=== PATIENT | female | born 2000 | race Caucasian/White ===

== ENCOUNTER 2020-05-12 07:09 | Inpatient (IN) ==
[2020-05-12] MEDS ORDERED: OXYTOCIN 30 UNITS/500 ML BAG IV PRN ×2 (07:55→23:12)
[2020-05-12 08:19] LABS: Hematocrit (blood only) 37.9 % (37-47); Hemoglobin 12.6 g/dL (12.0-16.0); Mean Corpuscular Hemoglobin 28.8 pg (25-34); Mean Corpuscular Volume 86.7 fL (80-100); Mean Platelet Volume 12.9 fL (7.4-10.4); Platelet Count 197 K/uL (130-400); RDW Coefficient of Variation 13.7 % (11.5-14.5); RDW Standard Deviation 43.2 fL (36.4-46.3); Red Blood Count 4.37 M/uL (4.2-5.4); White Blood Count 11.54 K/uL (4.8-10.8)
[2020-05-12 08:25] LABS: Mean Corpuscular Hgb Conc 33.2 g/dL (32-36)
[2020-05-12] MEDS: LACTATED RINGER'S 1,000 ML IV PRN ×3 (09:37→17:54)
[2020-05-12] MEDS ORDERED: BUTORPHANOL TARTRATE 1 MG/ML VIAL IV STA (09:42)
[2020-05-12] MEDS ORDERED: BUPIVACAINE 0.25% 30 ML VIAL ONE (09:45)
[2020-05-12] MEDS ORDERED: fentaNYL citrate 100 MCG/2 ML VIAL ONE (09:45)
[2020-05-12] MEDS ORDERED: ePHEDrine sulfate 50 MG/ML AMP ONE (09:45)
[2020-05-12] MEDS ORDERED: fentaNYL 2MCG/ML ROPIV 1.25MG/ML 100 ML BAG EPI ONE (09:46)
--- NOTE | 2020-05-12 09:57 | Obstetrical Progress Note ---
Date of Service May 12, 2020 Assessment & Plan Admission and Anticipated Discharge Date Admission Date: May 12, 2020 Subjective Met pt and spouse Reviewed PNC FHR: CAT1 Ctx; 2-3 VE; 4-/-/-1 Results & Data ([facility]) Vital Signs (Past 12 Hours) Vital Signs Pulse BP 05/12/20 07:14 87 101/61
[2020-05-12] MEDS ORDERED: NALOXONE HCL 1 MG in SODIUM CHLORIDE 0.9% 1000ML 1,000 ML IV PRN (10:09)
[2020-05-12] MEDS ORDERED: ePHEDrine sulfate 50 MG/ML AMP IV PRN (10:09)
[2020-05-12] MEDS ORDERED: ONDANSETRON INJ 2 MG/ML 2 ML VIAL IV PRN (10:09)
[2020-05-12] MEDS ORDERED: NALOXONE HCL 0.4 MG/1 ML VIAL/CARP IV PRN (10:09)
[2020-05-12] MEDS ORDERED: PROMETHAZINE HCL 25 MG in SODIUM CHLORIDE 0.9% 50 ML IV PRN (10:09)
[2020-05-12] MEDS ORDERED: DiphenhydrAMINE HCL 50 MG/ML VIAL IV PRN (10:09)
--- NOTE | 2020-05-12 10:09 | Anesthesiology Consultation ---
Date of Service May 12, 2020 Assessment & Plan ASA ASA2 Proposed Anesthesia Anesthesia Type: Labor Epidural Risk / Benefits Reviewed With: PT / POA / Parent / Guardian, Accepts Plan and Informed Consent Obtained History Height/Weight Height: 5 ft 3 in Weight: 60.781 kg Allergies Allergy/AdvReac Type Severity Reaction Status Date / Time No Known Allergies Allergy Mild Unverified 05/12/20 07:16 Medications Home Medications Medication Instructions Recorded Confirmed Last Taken pedi multivit 99-vit D3-vit K 2 tab PO DAILY 05/12/20 05/12/20 05/11/20 08:00 [One-A-Day Teen Her [facility]] Active Medications Generic Name Dose Route Start Last Admin Trade Name Freq PRN Reason Stop Dose Admin Lactated Ringer's 1,000 mls @ 125 mls/hr 05/12/20 07:55 05/12/20 10:43 Lr IV 05/14/20 07:54 125 mls/hr .Q8H PRN Administration L&D Protocol Protocol Ropivacaine 100 ml 05/12/20 10:09 05/12/20 10:35 Fentanyl 2mcg/Ml Ropiv 1.25mg/Ml 100 Ml Bag EPI 05/13/20 10:08 12 ml PRN PRN Administration Pain R/T Labor Protocol Exercise / Class Metabolic Activity II 4-5 Yardwork/Stairs/Walk up hill Past Anesthesia History No Hx of Anesthesia Complications and No Family Hx of Anesthesia Complications History of PONV No Hx of PONV and No Hx of Motion Sickness Social History Smoking Status: Current every day smoker tobacco type: cigarettes Do You Dip or Chew Tobacco: No Hx Alcohol Use: No Hx Substance Use: No Review of Systems denies fever/cough/ colds/ chest pain/ SOB/ TILA Constitutional: no fever and no chills Respiratory: no cough and no dyspnea denies TILA Cardiovascular: no chest pain and no dyspnea on exertion Physical Exam Vital Signs Last Vital Signs Temp 36.8 C 05/12/20 10:04 Pulse 63 05/12/20 11:01 Resp 18 05/12/20 10:40 BP 108/70 05/12/20 11:01 Pulse Ox 99 05/12/20 10:59 ENMT Mouth: no TMJ abnormality and no dentition abnormality Thyromental Distance: > or= 3.5 Finger Breadths Mallampati Class: II Neck neck extension not limited Respiratory normal respiratory effort; no respiratory distress Auscultation: lungs clear to auscultation bilaterally Cardiovascular Rate/Rhythm: regular rate and regular rhythm Neurologic moves all extremities Psychiatric Orientation: alert and oriented x 3 Testing Laboratory Results 05/12/20 08:08
[2020-05-12] MEDS: fentaNYL 2MCG/ML ROPIV 1.25MG/ML 100 ML BAG EPI PRN ×4 (10:35→23:39)
[2020-05-13] MEDS ORDERED: CALCIUM CARBONATE 500 MG CHEWABLE TAB PO ONE (01:08)
[2020-05-13] MEDS: LACTATED RINGER'S 1,000 ML IV PRN (02:06)
[2020-05-13] MEDS ORDERED: SUPERCREAM 0.870% 15 GM JAR EXT PRN (03:23)
[2020-05-13] MEDS ORDERED: OXYTOCIN 30 UNITS/500 ML BAG IV PRN (03:23)
[2020-05-13] MEDS ORDERED: miSOPROStoL 200 MCG TAB PR ONE (03:23)
[2020-05-13] MEDS ORDERED: BENZOCAINE 20% AER SPR 82.5 GM CAN EXT PRN (03:23)
[2020-05-13] MEDS ORDERED: ACETAMINOPHEN 325 MG TAB PO PRN (03:23)
[2020-05-13] MEDS ORDERED: HYDROCORTISONE ACETATE 25 MG SUPP PR PRN (03:23)
[2020-05-13] MEDS ORDERED: DIPHTHERIA/TETANUS/PERTUSSIS 0.5 ML SYR/VIAL IM ONE (03:23)
[2020-05-13] MEDS ORDERED: bisacodyL 10 MG SUPP PR PRN (03:23)
[2020-05-13] MEDS: IBUPROFEN 600 MG TAB PO PRN ×3 (05:27→19:58)
[2020-05-13 06:23] LABS: Base Excess Cord Arterial Bld -5.8 mEq/L (-9-1.8); CO2 Cord Arterial Blood 43 mmHg (39.1-73.5); HCO3 Cord Arterial Blood 21 mmol/L (19.7-28.5); Oxygen Sat Cord Arterial Blood < 60.0 % (<60); PO2 Cord Arterial Blood 27 mmHg (4.1-31.7)
[2020-05-13 06:24] LABS: Base Excess Cord Venous Blood -5.2 mEq/L (-7.7-1.9); Cord Venous Blood HCO3 20 mmol/L (18.4-26.8); Cord Venous Blood PCO2 40 mmHg (30.4-57.2); Cord Venous Blood PO2 29 mmHg (14.1-43.3); Cord Venous Blood pH 7.32 (7.20-7.44)
--- NOTE | 2020-05-13 08:22 | Obstetrical Progress Note ---
Date of Service May 13, 2020 Assessment & Plan Admission and Anticipated Discharge Date Admission Date: May 12, 2020 Subjective POD#0 doing well Physical Exam Constitutional: WD/WN, vitals as above comfortable fundus firm no edema neg Baldemar's will continue normal postparatum care Results & Data ([facility]) Vital Signs (Past 12 Hours) Vital Signs Temp Pulse Resp BP Pulse Ox 05/13/20 06:15 37.1 C 51 L 18 99/61 L 05/13/20 05:21 18 05/13/20 05:19 53 L 90/52 L 05/13/20 05:03 55 L 97/53 L 05/13/20 05:00 18 05/13/20 04:16 56 L 95/57 L 05/13/20 04:15 18 05/13/20 04:01 53 L 93/57 L 05/13/20 04:00 18 05/13/20 03:46 69 92/58 L 05/13/20 03:45 18 05/13/20 03:31 78 96/56 L 05/13/20 03:30 18 05/13/20 03:16 72 95/56 L 05/13/20 03:09 78 98 05/13/20 03:04 117 H 97 05/13/20 02:59 60 100 05/13/20 02:54 98 H 100 05/13/20 02:49 61 100 05/13/20 02:44 59 L 100 05/13/20 02:41 73 84 L 05/13/20 02:39 68 100 05/13/20 02:34 63 100 05/13/20 02:33 78 112/53 L 05/13/20 02:30 18 05/13/20 02:29 78 100 05/13/20 02:24 62 100 05/13/20 02:19 66 99 05/13/20 02:17 67 99/57 L 05/13/20 02:14 59 L 100 05/13/20 02:09 64 99 05/13/20 02:04 60 99 05/13/20 02:00 18 05/13/20 01:59 65 99 05/13/20 01:54 63 99 05/13/20 01:52 73 86 L 05/13/20 01:49 95 H 91 05/13/20 01:44 60 98 05/13/20 01:43 64 84 L 05/13/20 01:39 101 H 99 05/13/20 01:34 85 98 05/13/20 01:33 71 84 L 05/13/20 01:30 18 05/13/20 01:29 63 99 05/13/20 01:24 74 95 05/13/20 01:19 61 99 05/13/20 01:14 60 99 05/13/20 01:09 76 100 05/13/20 01:04 61 98 05/13/20 01:02 50 L 111/57 L 05/13/20 01:00 18 05/13/20 00:59 71 97 05/13/20 00:54 54 L 95 05/13/20 00:49 53 L 97 05/13/20 00:46 64 100/61 05/13/20 00:44 80 95 05/13/20 00:39 74 94 05/13/20 00:34 50 L 98 05/13/20 00:33 68 97/58 L 05/13/20 00:30 18 05/13/20 00:29 53 L 95 05/13/20 00:24 50 L 94 05/13/20 00:19 54 L 95 05/13/20 00:16 62 97/57 L 05/13/20 00:14 54 L 95 05/13/20 00:09 52 L 97 05/13/20 00:04 47 L 97 05/13/20 00:02 48 L 103/58 L 05/13/20 00:00 18 05/12/20 23:59 98 H 100 05/12/20 23:54 79 100 05/12/20 23:49 55 L 97 05/12/20 23:47 48 L 99/58 L 05/12/20 23:44 48 L 97 05/12/20 23:39 60 96 05/12/20 23:34 50 L 97 05/12/20 23:33 46 L 95/59 L 05/12/20 23:30 18 05/12/20 23:29 62 99 05/12/20 23:24 50 L 99 05/12/20 23:19 52 L 95 05/12/20 23:16 49 L 101/60 05/12/20 23:14 51 L 96 05/12/20 23:09 50 L 95 05/12/20 23:04 71 94 05/12/20 23:02 46 L 101/59 L 05/12/20 23:00 37.0 C 18 05/12/20 22:59 55 L 96 05/12/20 22:54 45 L 96 05/12/20 22:49 50 L 95 05/12/20 22:48 45 L 98/57 L 05/12/20 22:44 51 L 95 05/12/20 22:39 50 L 94 05/12/20 22:34 47 L 97 05/12/20 22:31 48 L 94/55 L 05/12/20 22:30 18 05/12/20 22:29 48 L 97 05/12/20 22:24 51 L 98 05/12/20 22:19 52 L 98 05/12/20 22:16 51 L 88/53 L 05/12/20 22:14 51 L 98 05/12/20 22:09 56 L 97 05/12/20 22:04 47 L 96 05/12/20 22:01 50 L 92/57 L 05/12/20 22:00 18 05/12/20 21:59 49 L 97 05/12/20 21:54 57 L 98 05/12/20 21:49 57 L 99 05/12/20 21:48 48 L 104/59 L 05/12/20 21:44 52 L 99 05/12/20 21:39 49 L 98 05/12/20 21:34 87 97 05/12/20 21:30 36.7 C 05/12/20 21:29 50 L 98 05/12/20 21:24 74 96 05/12/20 21:19 53 L 96 05/12/20 21:18 50 L 100/58 L 05/12/20 21:14 53 L 99 05/12/20 21:09 47 L 99 05/12/20 21:04 68 97 05/12/20 21:02 46 L 105/65 05/12/20 21:00 18 05/12/20 20:59 51 L 95 05/12/20 20:54 49 L 97 05/12/20 20:53 56 L 85 L 05/12/20 20:49 50 L 97 05/12/20 20:47 50 L 105/59 L 05/12/20 20:44 48 L 97 05/12/20 20:39 55 L 99 05/12/20 20:34 55 L 99 05/12/20 20:30 18 05/12/20 20:29 72 98 05/12/20 20:24 59 L 98
--- NOTE | 2020-05-13 08:29 | Delivery Summary ---
DATE OF OPERATION: 05/13/2020 The patient delivered a live infant in occiput anterior presentation. There was known meconium prior to delivery. A right midline second-degree episiotomy was performed. was delivered. There was no nuchal cord. Infant was delivered and placed on mother's abdomen. Cord was clamped and cut and immediately handed over to the pediatric team because of the thick meconium. Weight, , and details are in the pediatric record. Cord blood and cord gas were obtained. Placenta was spontaneously delivered. Inspection of the placenta showed a thick meconium stained placenta. This was sent to pathology for pathological analysis as well. Estimated blood loss is 550 mL. Episiotomy was repaired with Vicryl suture in layers. A 2-0 Vicryl was used for the repair. Rectal exam post repair showed good sphincter tone. All the instruments were removed from the vagina and accounted for x2 including retractors, needles, sponges and accounted for x2. The patient and baby are in recovery. I attest to the content of the Intraoperative Record and any orders documented therein. Any exception s are noted below.
[2020-05-13] MEDS: PRENATAL VITAMIN 1 TAB PO SCH (08:36)
[2020-05-13] MEDS: DOCUSATE SODIUM 100 MG CAP PO SCH ×2 (08:36→19:58)
--- NOTE | 2020-05-13 10:38 | Anesthesia Procedure Note ---
Date of Service May 13, 2020 Anesthesia Post Epidural Note Vital Signs Vital Signs: Temp Pulse Resp BP Pulse Ox 37.1 C 51 L 18 99/61 L 98 05/13/20 06:15 05/13/20 06:15 05/13/20 06:15 05/13/20 06:15 05/13/20 03:09 Pain Intensity Bilateral Abdomen: Pain Intensity: 5 Notes Mental Status: alert / awake / arousable Nausea / Vomiting: adequately controlled Pain: adequately controlled Airway Patency, RR, SpO2: stable & adequate BP & HR: stable & adequate Hydration State: stable & adequate Neuraxial Anesthesia: was administered and sensory block is resolving Anesthetic Complications: no major complications apparent and Pt Satisfied with anesthetic care Epidural: Removed without complications and With tip intact
[2020-05-14 06:34] LABS: Hemoglobin 10.3 g/dL (12.0-16.0); Mean Corpuscular Hemoglobin 28.9 pg (25-34); Mean Corpuscular Hgb Conc 33.2 g/dL (32-36); Mean Corpuscular Volume 87.1 fL (80-100); Mean Platelet Volume 13.3 fL (7.4-10.4); Platelet Count 168 K/uL (130-400); RDW Coefficient of Variation 13.7 % (11.5-14.5); RDW Standard Deviation 43.5 fL (36.4-46.3); Red Blood Count 3.56 M/uL (4.2-5.4); White Blood Count 11.15 K/uL (4.8-10.8)
[2020-05-14] MEDS: PRENATAL VITAMIN 1 TAB PO SCH (08:22)
[2020-05-14] MEDS: DOCUSATE SODIUM 100 MG CAP PO SCH (08:22)
[2020-05-14] MEDS: IBUPROFEN 600 MG TAB PO PRN (08:22)
--- NOTE | 2020-05-14 09:16 | Obstetrical Progress Note ---
Date of Service May 14, 2020 Assessment & Plan Admission and Anticipated Discharge Date Admission Date: May 12, 2020 Subjective Patient is seen and examined. She feels well, no complaints. Ambulating without dizziness Voiding without difficulty Tolerating regular diet with out N&V Bleeding is minimal No fever/ chills/ CP/ SOB/ N&V/ Leg pain Breast feeding without problems Desires d/c today Vital Signs Temp Pulse Resp BP Pulse Ox 05/14/20 08:41 36.6 C 48 L 16 98/60 L 98 05/14/20 00:00 36.6 C 48 L 16 106/64 98 05/13/20 19:05 36.7 C 53 L 18 99/61 L 98 05/13/20 15:19 36.8 C 50 L 20 98/61 L 97 05/13/20 12:30 36.5 C 52 L 18 106/70 98 Lab Results 05/12/20 05/13/20 05/13/20 Range/Units 08:08 03:07 03:07 WBC 11.54 H (4.8-10.8) K/uL RBC 4.37 (4.2-5.4) M/uL Hgb 12.6 (12.0-16.0) g/dL Hct 37.9 (37-47) % MCV 86.7 (80-100) fL MCH 28.8 (25-34) pg MCHC 33.2 (32-36) g/dL RDW Std Deviation 43.2 (36.4-46.3) fL RDW Coeff of Karen 13.7 (11.5-14.5) % Plt Count 197 (130-400) K/uL MPV 12.9 H (7.4-10.4) fL Cord ABG pH 7.30 (7.1-7.38) Cord ABG pCO2 43 (39.1-73.5) mmHg Cord ABG pO2 27 (4.1-31.7) mmHg Cord ABG HCO3 21 (19.7-28.5) mmol/L Cord ABG Base Excess -5.8 (-9-1.8) mEq/L Cord ABG O2 Sat < 60.0 (<60) % Cord VBG pH 7.32 (7.20-7.44) Cord VBG pCO2 40 (30.4-57.2) mmHg Cord VBG pO2 29 (14.1-43.3) mmHg Cord VBG HCO3 20 (18.4-26.8) mmol/L Cord VBG Base Excess -5.2 (-7.7-1.9) mEq/L Cord VBG O2 Sat 64.0 (<68) % Blood Gas Comments NAVARRO NAVARRO 05/14/20 Range/Units 06:06 WBC 11.15 H (4.8-10.8) K/uL RBC 3.56 L (4.2-5.4) M/uL Hgb 10.3 L (12.0-16.0) g/dL Hct 31.0 L (37-47) % MCV 87.1 (80-100) fL MCH 28.9 (25-34) pg MCHC 33.2 (32-36) g/dL RDW Std Deviation 43.5 (36.4-46.3) fL RDW Coeff of Karen 13.7 (11.5-14.5) % Plt Count 168 (130-400) K/uL MPV 13.3 H (7.4-10.4) fL Cord ABG pH (7.1-7.38) Cord ABG pCO2 (39.1-73.5) mmHg Cord ABG pO2 (4.1-31.7) mmHg Cord ABG HCO3 (19.7-28.5) mmol/L Cord ABG Base Excess (-9-1.8) mEq/L Cord ABG O2 Sat (<60) % Cord VBG pH (7.20-7.44) Cord VBG pCO2 (30.4-57.2) mmHg Cord VBG pO2 (14.1-43.3) mmHg Cord VBG HCO3 (18.4-26.8) mmol/L Cord VBG Base Excess (-7.7-1.9) mEq/L Cord VBG O2 Sat (<68) % Blood Gas Comments PE: General: Alert, orientedx3, NAD Abd: soft, NT, fundus firm, below Umbilicus Perineum intact, Lochia rubra minimal Ext; NT, no edema AP: 19 yo s/p , ppd# 1 VSS Afebrile doing well Continue routine care All questions were answered Desires d/c Discussed when to call D/C home , f/u in office Results & Data ([facility]) Vital Signs (Past 12 Hours) Vital Signs Temp Pulse Resp BP Pulse Ox 05/14/20 08:41 36.6 C 48 L 16 98/60 L 98 05/14/20 00:00 36.6 C 48 L 16 106/64 98
[2020-05-14] MEDS ORDERED: bisacodyL 5 MG TABEC PO SCH (20:00)
== END 2020-05-14 15:10 | disposition home or self-care (01) | DRG 807 ==
LOC: 4S1 07:09 → 4S2 05-13 05:59
DX: Z37.0 Single live birth; F17.210 Nicotine dependence, cigarettes, uncomplicated; Z3A.40 40 weeks gestation of pregnancy; O77.0 Labor and delivery complicated by meconium in amniotic fluid; O99.334 Smoking (tobacco) complicating childbirth

== ENCOUNTER 2021-10-11 20:46 | Inpatient (IN) ==
[2021-10-11] MEDS ORDERED: OXYTOCIN 30 UNITS/500 ML BAG IV PRN (21:49)
--- NOTE | 2021-10-11 22:06 | History & Physical Report ---
Date of Service October 11, 2021 Assessment & Plan (1) Spontaneous rupture of amniotic membranes: Plan: 21 yo at 39.3 wks with SROM, contractions, in labor VSS Afebrile FHR reassuring GBS neg Admit, labs, monitor, epidural for pain Anticipate (2) Active labor at term: History of Present Illness Primary Care Provider: NO PCP Patient is a 21 yo AT 39.3 WKS WHO HAD GUSH OF FLUID LEAKING AT AROUND 7:30 PM AND HAS BEEN leaking since then Contractions have started soon after No VB +FM Her has been uncomplicated except 1) smoker 2) close interval 3) anemia GBS negative Allergies Allergy/AdvReac Type Severity Reaction Status Date / Time No Known Allergies Allergy Mild Unverified 05/12/20 07:16 Home Medications Medication Instructions Recorded Confirmed Type vits no.124-ferrous fum 1 tab PO DAILY@08 #60 tab 05/14/20 10/11/21 Rx 27 mg iron-folic acid 800 mcg tablet ( Vitamin) ferrous sulfate 325 mg (65 mg 325 mg PO BID 10/11/21 10/11/21 History iron) tablet Patient History Medical History Anemia Social History Smoking Status: Current every day smoker Second Hand Exposure: Yes; Hx Alcohol Use: No Hx Substance Use: No Preferred Language: [place]an Communication Ability: Effective Doctor Of Osteopathy Required: No Beliefs That Will Affect Care: None marital status: Single Current Living Situation: Family and Significant Other Other Information That Helps Us Care for You: No Feels Safe at Home: Yes Safety Concerns: Feels Safe At This Time Assistive Devices: None 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
[2021-10-11] MEDS: LACTATED RINGER'S 1,000 ML IV PRN ×2 (22:11→23:14)
[2021-10-11] MEDS ORDERED: BUTORPHANOL TARTRATE 1 MG/ML VIAL IV ONE (22:26)
[2021-10-11] MEDS ORDERED: BUTORPHANOL TARTRATE 1 MG/ML VIAL ONE (22:28)
[2021-10-11] MEDS ORDERED: SODIUM CHLORIDE 0.9% INJ 10 ML VIAL ONE (22:34)
[2021-10-11] MEDS ORDERED: ePHEDrine sulfate 50 MG/ML AMP ONE (22:34)
[2021-10-11] MEDS ORDERED: BUPIVACAINE 0.25% 30 ML VIAL ONE (22:35)
[2021-10-11] MEDS ORDERED: fentaNYL 2MCG/ML ROPIVACAINE 1.25MG/ML 100 ML BAG EPI ONE (22:35)
[2021-10-11] MEDS ORDERED: fentaNYL citrate 100 MCG/2 ML VIAL ONE (22:35)
[2021-10-11] MEDS ORDERED: NALBUPHINE HCL INJ 10 MG/ML AMP IV PRN (22:37)
[2021-10-11] MEDS ORDERED: fentaNYL 2MCG/ML ROPIVACAINE 1.25MG/ML 100 ML BAG EPI PRN (22:37)
[2021-10-11] MEDS ORDERED: diphenhydrAMINE 50 MG/ML VIAL IV PRN (22:37)
[2021-10-11] MEDS ORDERED: ePHEDrine sulfate 50 MG/ML AMP IV PRN (22:37)
[2021-10-11] MEDS ORDERED: NALOXONE HCL 0.4 MG/1 ML VIAL/CARP IV PRN (22:37)
[2021-10-11] MEDS ORDERED: NALOXONE HCL 1 MG in SODIUM CHLORIDE 0.9% 1000ML 1,000 ML IV PRN (22:37)
--- NOTE | 2021-10-11 22:37 | Anesthesiology Consultation ---
Date of Service October 11, 2021 Assessment & Plan (1) Encounter for pre-operative examination: Chart Review Chart Review: Acceptable Risk for Surgery and Patient NOT seen in Pre Admission Testing Consults Requested none History Height/Weight Height: 5 ft 3 in Weight: 67.8 kg Allergies Allergy/AdvReac Type Severity Reaction Status Date / Time No Known Allergies Allergy Mild Unverified 05/12/20 07:16 Medications Home Medications Medication Instructions Recorded Confirmed Last Taken vits no.124-ferrous fum 1 tab PO DAILY@08 #60 tab 05/14/20 10/11/21 1 Day Ago 27 mg iron-folic acid 800 mcg ~10/10/21 tablet ( Vitamin) ferrous sulfate 325 mg (65 mg 325 mg PO BID 10/11/21 10/11/21 10/11/21 09:00 iron) tablet Active Medications Generic Name Dose Route Start Last Admin Trade Name Freq PRN Reason Stop Dose Admin Lactated Ringer's 1,000 mls @ 125 mls/hr 10/11/21 21:49 10/11/21 22:11 Lr IV 10/13/21 21:48 999 mls/hr .Q8H PRN Administration L&D Protocol Protocol Past Medical History Medical History Anemia Social History Smoking Status: Current every day smoker tobacco type: cigarettes Hx Alcohol Use: No Hx Substance Use: No Physical Exam Vital Signs Last Vital Signs Temp 98.2 F 10/11/21 21:07 Pulse 92 H 10/11/21 21:00 Resp 18 10/11/21 21:07 BP 112/68 10/11/21 21:00
[2021-10-11 22:41] LABS: Hematocrit (blood only) 37.9 % (37-47); Hemoglobin 12.7 g/dL (12.0-16.0); Mean Corpuscular Hemoglobin 30.2 pg (25-34); Mean Corpuscular Hgb Conc 33.5 g/dL (32-36); Mean Platelet Volume 12.6 fL (7.4-10.4); Platelet Count 181 K/uL (130-400); RDW Coefficient of Variation 15.9 % (11.5-14.5); RDW Standard Deviation 52.1 fL (36.4-46.3); Red Blood Count 4.21 M/uL (4.2-5.4); White Blood Count 14.16 K/uL (4.8-10.8)
--- NOTE | 2021-10-12 00:17 | Obstetrical Progress Note ---
Date of Service October 12, 2021 Assessment & Plan Admission and Anticipated Discharge Date Admission Date: October 11, 2021 Subjective Patient is related. She received epidural and comfortable now. Vaginal exam: Cervix 10 cm/100 percent and head at +1 station. Patient does not feel any urge to push and she wants to wait until she feels. heart rate category 1, continue to monitor closely and anticipate . Results & Data ([facility]) Vital Signs (Past 12 Hours) Vital Signs Temp Pulse Resp BP Pulse Ox Pulse Ox 10/12/21 00:14 89 103/57 L 10/12/21 00:13 87 99 10/12/21 00:11 65 97/55 L 10/12/21 00:08 73 103/56 L 97 10/12/21 00:06 67 86/50 L 10/12/21 00:05 89 87/58 L 10/12/21 00:03 62 97 10/12/21 00:02 69 97/54 L 10/11/21 23:59 64 108/56 L 10/11/21 23:58 66 95 10/11/21 23:56 64 104/59 L 10/11/21 23:53 64 105/58 L 99 10/11/21 23:52 75 91 10/11/21 23:50 72 94/66 L 10/11/21 23:48 68 98 10/11/21 23:47 77 112/59 L 93 10/11/21 23:45 18 10/11/21 23:44 70 112/56 L 10/11/21 23:43 73 100 10/11/21 23:41 80 111/59 L 10/11/21 23:38 62 111/56 L 100 10/11/21 23:35 62 113/58 L 10/11/21 23:33 76 100 10/11/21 23:32 95 H 120/59 L 10/11/21 23:28 81 100 10/11/21 23:26 71 116/70 10/11/21 23:23 57 L 110/68 98 10/11/21 23:20 36.5 C 81 18 123/73 10/11/21 23:19 93 H 90 10/11/21 23:18 93 H 94 10/11/21 23:17 97 H 115/64 10/11/21 23:15 18 10/11/21 23:14 100 H 118/59 L 10/11/21 23:13 89 96 10/11/21 23:11 83 111/60 10/11/21 23:08 75 118/66 98 10/11/21 23:05 79 121/67 10/11/21 23:03 98 H 99 10/11/21 23:02 80 122/70 10/11/21 22:59 93 H 119/68 10/11/21 22:58 95 H 99 10/11/21 22:53 89 99 10/11/21 22:50 100 10/11/21 22:48 83 99 10/11/21 22:44 94 H 84 L 10/11/21 22:43 96 H 98 10/11/21 22:38 86 100 10/11/21 21:07 36.8 C 18 10/11/21 21:00 92 H 112/68
[2021-10-12] MEDS ORDERED: MEASLES, MUMPS & RUBELLA VIRUS VIAL SQ ONE (01:20)
[2021-10-12] MEDS ORDERED: ACETAMINOPHEN 325 MG TAB PO PRN (01:20)
[2021-10-12] MEDS ORDERED: HYDROCORTISONE ACETATE 25 MG SUPP PR PRN (01:20)
[2021-10-12] MEDS ORDERED: OXYTOCIN 30 UNITS/500 ML BAG IV PRN (01:20)
[2021-10-12] MEDS ORDERED: DIPHTHERIA/TETANUS/PERTUSSIS 0.5 ML SYR/VIAL IM ONE (01:20)
[2021-10-12] MEDS ORDERED: BENZOCAINE 20% AER SPR 82.5 GM CAN EXT PRN (01:20)
--- NOTE | 2021-10-12 01:31 | Delivery Summary ---
Vaginal Delivery Summary Date of Service October 12, 2021 Vaginal Delivery Summary The patient was found to be fully dilated and desire to push. She pushed for about 10 minutes and delivered the head without difficulty. The shoulders were delivered with minimal traction, baby was handed off to the mother where mouth and nose were suctioned. The cord was clamped times and cut at 1 minute delay. The baby was moving and crying vigorously. The vagina and perineum were checked for lacerations. They were intact, no lacerations were found. The placenta was found to be in the vagina, delivered spontaneously as intact and complete. The uterus was explored and found to be empty, fundus was firm EBL was 200 mL. The mom and baby tolerated procedure well. Sponge instrument count was correct x2. Baby was a viable male , Apgars were 8/9, weight is pending. No complications happened and I was present during whole procedure.
[2021-10-12] MEDS: PRENATAL VITAMIN 1 TAB PO SCH (08:30)
[2021-10-12] MEDS: FERROUS SULFATE 325 MG TAB PO SCH (08:30)
[2021-10-12] MEDS: DOCUSATE SODIUM 100 MG CAP PO SCH ×2 (08:30→21:06)
--- NOTE | 2021-10-12 09:36 | Anesthesia Procedure Note ---
Date of Service October 12, 2021 Anesthesia Post Epidural Note Vital Signs Vital Signs: Temp Pulse Resp BP Pulse Ox 36.6 C 52 L 14 105/68 99 10/12/21 07:24 10/12/21 07:24 10/12/21 07:24 10/12/21 07:24 10/12/21 07:24 Pain Intensity Back: Pain Intensity: 10 Notes Mental Status: alert / awake / arousable and participated in evaluation Patient Amnestic to Procedure: Yes Nausea / Vomiting: adequately controlled Pain: adequately controlled Airway Patency, RR, SpO2: stable & adequate BP & HR: stable & adequate Hydration State: stable & adequate Anesthetic Complications: no major complications apparent and Pt Satisfied with anesthetic care
[2021-10-12] MEDS: IBUPROFEN 600 MG TAB PO PRN ×2 (11:28→21:06)
[2021-10-13 07:26] LABS: Hematocrit (blood only) 35.7 % (37-47); Hemoglobin 11.7 g/dL (12.0-16.0); Mean Corpuscular Hemoglobin 29.9 pg (25-34); Mean Corpuscular Hgb Conc 32.8 g/dL (32-36); Mean Corpuscular Volume 91.3 fL (80-100); Mean Platelet Volume 12.3 fL (7.4-10.4); Platelet Count 183 K/uL (130-400); RDW Coefficient of Variation 16.2 % (11.5-14.5); RDW Standard Deviation 53.6 fL (36.4-46.3); Red Blood Count 3.91 M/uL (4.2-5.4); White Blood Count 10.34 K/uL (4.8-10.8)
[2021-10-13] MEDS: DOCUSATE SODIUM 100 MG CAP PO SCH (08:32)
[2021-10-13] MEDS: FERROUS SULFATE 325 MG TAB PO SCH (08:33)
[2021-10-13] MEDS: PRENATAL VITAMIN 1 TAB PO SCH (08:33)
--- NOTE | 2021-10-13 08:55 | Obstetrical Progress Note ---
Date of Service October 13, 2021 Assessment & Plan Admission and Anticipated Discharge Date Admission Date: October 11, 2021 Subjective Patient is seen and examined. She feels well, no complaints. Wants to be discharged today Ambulating without dizziness Voiding without difficulty Tolerating regular diet with out N&V Bleeding is minimal No fever/ chills/ CP/ SOB/ N&V/ Leg pain Bottle feeding without problems Vital Signs Temp Pulse Resp BP Pulse Ox 10/12/21 23:35 36.9 C 51 L 20 99/57 L 95 Lab Results 10/11/21 10/11/21 10/13/21 Range/Units 21:43 22:26 06:27 WBC 14.16 H 10.34 (4.8-10.8) K/uL RBC 4.21 3.91 L (4.2-5.4) M/uL Hgb 12.7 11.7 L (12.0-16.0) g/dL Hct 37.9 35.7 L (37-47) % MCV 90.0 91.3 (80-100) fL MCH 30.2 29.9 (25-34) pg MCHC 33.5 32.8 (32-36) g/dL RDW Std Deviation 52.1 H 53.6 H (36.4-46.3) fL RDW Coeff of Karen 15.9 H 16.2 H (11.5-14.5) % Plt Count 181 183 (130-400) K/uL MPV 12.6 H 12.3 H (7.4-10.4) fL SARS-CoV-2, RNA, NAAT NEGATIVE (NEGATIVE) PE: General: Alert, orientedx3, NAD Abd: soft, NT, fundus firm, below Umbilicus Perineum intact, Lochia rubra minimal Ext; NT, no edema AP: 21 yo s/p , ppd# 1 VSS Afebrile doing well Continue routine care All questions were answered D/C home , f/u in office Results & Data ([facility]) Vital Signs (Past 12 Hours) Vital Signs Temp Pulse Resp BP Pulse Ox 10/12/21 23:35 36.9 C 51 L 20 99/57 L 95
[2021-10-13] MEDS ORDERED: bisacodyL 5 MG TABEC PO SCH (20:00)
[2021-10-14] MEDS ORDERED: bisacodyL 10 MG SUPP PR PRN
== END 2021-10-13 12:00 | disposition home or self-care (01) | DRG 807 ==
LOC: OPB 20:46 → 4S1 20:50 → 4S2 10-12 03:59

== ENCOUNTER 2023-03-26 00:43 | Observation (INO) ==
[2023-03-26] MEDS ORDERED: ONDANSETRON INJ 2 MG/ML 2 ML VIAL IV STA (01:03)
[2023-03-26] MEDS ORDERED: ACETAMINOPHEN 1,000 MG/100 ML VIAL IV STA (01:03)
[2023-03-26] MEDS ORDERED: SODIUM CHLORIDE 0.9% 1000ML 1,000 ML IV SCH (01:15)
[2023-03-26 01:24] LABS: Alanine Aminotransferase 10 U/L (7-52); Albumin Globulin Ratio 1.2 (0.9-2); Albumin Level 3.3 gm/dl (3.4-5.0); Alkaline Phosphatase 49 U/L (34-104); Anion Gap 9 (3-11); Aspartate Aminotransferase 16 U/L (13-39); BUN Creatinine Ratio 16.9 (10-20); Bilirubin,Total 0.9 mg/dl (0.2-1.0); Blood Urea Nitrogen 10 mg/dl (6-23); Calcium 8.1 mg/dl (8.6-10.3); Carbon Dioxide 17 mmol/L (21-32); Chloride 110 mmol/L (98-107); Creatinine Clr Calc Pharmacy 122.7 ml/min; Est GFR (African American) 149.7 ml/min; Est GFR (Non-African American) 129.2 ml/min; Globulin 2.7 gm/dl (2.5-4.0); Glucose 91 mg/dl (70-99(Fasting)); Lipase 44 U/L (11-82); Magnesium 1.5 mg/dl (1.7-2.4); Potassium 3.2 mmol/L (3.5-5.1); Sodium 136 mmol/L (136-145)
[2023-03-26 01:39] LABS: Basophils # (auto) 0.02 K/uL (0-0.2); Basophils % (auto) 0.2 %; Eosinophils # (auto) 0.02 K/uL (0-0.50); Eosinophils % (auto) 0.2 %; Hematocrit (blood only) 29.5 % (37.0-47.0); Hemoglobin 10.4 g/dl (12.0-16.0); Immature Granulocytes # (auto) 0.05 K/uL (0.01-0.20); Immature Granulocytes % (auto) 0.6 %; Lymphocytes # (auto) 0.77 K/uL (1.2-3.4); Lymphocytes % (auto) 9.5 %; Mean Corpuscular Hemoglobin 29.9 pg (25.0-34.0); Mean Corpuscular Hgb Conc 35.3 g/dL (32.0-36.0); Mean Corpuscular Volume 84.8 fL (80.0-100.0); Mean Platelet Volume 11.7 fL (9.4-12.4); Monocytes # (auto) 0.35 K/uL (0.11-0.59); Monocytes % (auto) 4.3 %; Neutrophils # (auto) 6.89 K/uL (1.40-6.50); Neutrophils % (auto) 85.2 %; Platelet Count 173 K/uL (130-400); RDW Coefficient of Variation 14.6 % (11.5-14.5); RDW Standard Deviation 44.8 fL (36.4-46.3); Red Blood Count 3.48 M/uL (4.20-5.40)
[2023-03-26 02:36] LABS: Appearance Urine Turbid (Clear); Bacteria Urine Automated 4+ (Negative); Bilirubin Urine Negative (Negative); Blood Urine 1+ (Negative); Color Urine Dark Yellow; Epithelial Cell Urine Auto >30 /lpf (0-5); Glucose Urine UA Negative (Negative); Ketones Urine 1+ (Negative); Leukocyte Esterase Urine 2+ (Negative); Nitrite Urine Positive (Negative); Protein Urine 2+ (Negative); RBC Urine Automated 0-4 /hpf (0-4); Urobilinogen Urine Positive (Negative); WBC Urine Automated >30 /hpf (0-5)
[2023-03-26 03:17] LABS: Troponin I High Sensitivity < 2.3 pg/ml (0-14)
[2023-03-26] MEDS ORDERED: cefTRIAXone SODIUM 1,000 MG in DEXTROSE 5% AD-VAN 50 ML IV STA (03:43)
[2023-03-26] MEDS ORDERED: SODIUM CHLORIDE 0.9% 1000ML 500 ML IV ONE (04:04)
--- NOTE | 2023-03-26 06:45 | Ultrasound Report ---
Exam(s): US ABDOMEN LIMITED EXAM: US Abdomen Limited, Right Upper Quadrant CLINICAL HISTORY: Reason for exam: Right side pain. Currently 20wk.. TECHNIQUE: Real-time ultrasound of the right upper quadrant with image documentation. COMPARISON: No relevant prior studies available. FINDINGS: Liver: Unremarkable. No mass. No intrahepatic bile duct dilation. Gallbladder: Unremarkable. No gallstones. Common bile duct: CBD caliber measures 3.4 mm in diameter. No stones. No dilation. Pancreas: Unremarkable as visualized. Right kidney: There is a right-sided hydroureteronephrosis. No stones. Bilateral ureteric jets are visualized. IMPRESSION: No evidence of cholecystitis or cholelithiasis Right-sided hydroureteronephrosis which could be due to the gravid uterus or ureteric stone. Electronically signed by: Brian Baxter MD 03/26/23 06:44 AM
--- NOTE | 2023-03-26 06:45 | Ultrasound Report ---
Exam(s): US OB LIMITED EXAM: US , Limited CLINICAL HISTORY: Reason for exam: right side pain, 20 wk preg. TECHNIQUE: Real-time limited ultrasound of the maternal uterus with image documentation. COMPARISON: No relevant prior studies available. FINDINGS: Fetus: Single live intrauterine with heart rate is 148 bpm. Gestational age: Estimated gestational age is 19 weeks and 4 days. EFW: Estimated weight is 305 g. Position: Breech presentation. Biometrics: 6 mm right choroid plexus cyst is seen. Placenta: Placenta is located on the right lateral aspect. Cervix: Cervical canal length is 4.2 cm. Vasculature: Prominent veins seen throughout the myometrium. IMPRESSION: Single live intrauterine corresponding to gestational age of 19 weeks and 4 days. Electronically signed by: Brian Baxter MD 03/26/23 06:44 AM
[2023-03-26] MEDS ORDERED: POTASSIUM CHLORIDE CRTAB 20 MEQ TABCR PO STA (08:39)
[2023-03-26] MEDS: MAGNESIUM SULFATE / D5W 1 GM/100 ML BAG IV SCH ×2 (08:49→10:47)
--- NOTE | 2023-03-26 09:02 | Student Report ---
[facility] Student H&P Date of Service Date of Service: March 26, 2023 HPI HPI: Pt is a 22 yo female with pmhx migraines with aura, anxiety, current daily smoker, currently 20wks gestation who present with approximate 4 day history of right lateral abdominal and flank pain, fever, chills, and rigors. Per patient her pain started on Saturday along with the fever and other symptoms, she also reported several episodes of vomiting over the weekend. This morning the pain was getting worse, so she came to the ED for evaluation. Pt points to right side and around back when asked where her pain is. She states that it waxes and wanes, and has not taken anything to relieve it. She denies any abdominal cramping, labor type pain/discomfort. Pt History Pt History: Medical History (Updated 11/13/21 @ 00:08 by Background Daemon) Active labor at term Anemia Encounter for pre-operative examination Spontaneous rupture of amniotic membranes Social History Smoking Status: Current every day smoker, 5 cigarettes per day Tobacco Type: Cigarettes Second Hand Exposure: Yes; Do You Dip or Chew Tobacco: No; Hx Alcohol Use: No Hx Substance Use: No Preferred Language: Gabonese Communication Ability: Effective Supervisor Stone Required: No Beliefs That Will Affect Care: None marital status: Single Current Living Situation: Family and Significant Other Feels Safe at Home: Yes Assistive Devices: None ROS ROS: See above for pertinent positives & negatives. A total of 10 systems reviewed and were otherwise negative. Physical Exam Physical Exam: Vital signs reviewed. General: Well-appearing [], in no significant distress. HEENT: No scleral icterus, PERRLA, neck supple. Atraumatic. Cardiovascular: Regular rate and rhythm, no extra sounds. Pulmonary: Clear to auscultation bilaterally, normal work of breathing. Abdomen: Soft, nontender, nondistended, positive bowel sounds. Musculoskeletal: Atraumatic, no peripheral edema. Neurologic: Patient awake alert and oriented x 3, full strength in all 4 extremities. Cranial nerves 2 through 12 grossly intact. Skin: Warm, dry, no rash Results Results: Vital Signs Temp 36.6 C 03/26/23 08:16 Pulse 70 03/26/23 08:00 Resp 17 03/26/23 08:00 BP 91/50 L 03/26/23 08:00 Pulse Ox 97 03/26/23 08:00 O2 Del Method Room Air 03/26/23 08:00 Intake & Output 03/25/23 03/26/23 03/26/23 18:59 06:59 18:59 Intake Total 2149 Balance 2149 Weight 59.3 kg Intake: IV 2149 Acetaminophen 1,000 mg In 100 100 / 100 ml @ 400 mls/hr IV NOW STA Rx#: [id number] Sodium Chloride 0.9% 1000ML 500 1500 / 1500 ml @ 999 mls/hr IV .Q31M ONE Rx#:[id number] cefTRIAXone SODIUM 1,000 mg In 50 / 50 Dextrose 5% Ad-Van 50 ml @ 100 mls/hr IV NOW STA Rx#:[id number] Left Antecubital 500 / 500 Other: Weight Measurement Method Built in [facility] Laboratory Results WBC 8.10 K/ul (4.8-10.8) 03/26/23 00:59 RBC 3.48 M/uL (4.20-5.40) L 03/26/23 00:59 Hgb 10.4 g/dl (12.0-16.0) L 03/26/23 00:59 Hct 29.5 % (37.0-47.0) L 03/26/23 00:59 MCV 84.8 fL (80.0-100.0) 03/26/23 00:59 MCH 29.9 pg (25.0-34.0) 03/26/23 00:59 MCHC 35.3 g/dL (32.0-36.0) 03/26/23 00:59 RDW Std Deviation 44.8 fL (36.4-46.3) 03/26/23 00:59 RDW Coeff of Karen 14.6 % (11.5-14.5) H 03/26/23 00:59 Plt Count 173 K/uL (130-400) 03/26/23 00:59 MPV 11.7 fL (9.4-12.4) 03/26/23 00:59 Immature Gran % (Auto) 0.6 % 03/26/23 00:59 Neut % (Auto) 85.2 % 03/26/23 00:59 Lymph % (Auto) 9.5 % 03/26/23 00:59 Greer % (Auto) 4.3 % 03/26/23 00:59 Eos % (Auto) 0.2 % 03/26/23 00:59 Baso % (Auto) 0.2 % 03/26/23 00:59 Neut # (Auto) 6.89 K/uL (1.40-6.50) H 03/26/23 00:59 Lymph # (Auto) 0.77 K/uL (1.2-3.4) L 03/26/23 00:59 Greer # (Auto) 0.35 K/uL (0.11-0.59) 03/26/23 00:59 Eos # (Auto) 0.02 K/uL (0-0.50) 03/26/23 00:59 Baso # (Auto) 0.02 K/uL (0-0.2) 03/26/23 00:59 Immature Gran # (Auto) 0.05 K/uL (0.01-0.20) 03/26/23 00:59 Sodium 136 mmol/L (136-145) 03/26/23 00:59 Potassium 3.2 mmol/L (3.5-5.1) L 03/26/23 00:59 Chloride 110 mmol/L (98-107) H 03/26/23 00:59 Carbon Dioxide 17 mmol/L (21-32) L 03/26/23 00:59 Anion Gap 9 (3-11) 03/26/23 00:59 BUN 10 mg/dl (6-23) 03/26/23 00:59 Creatinine 0.59 mg/dl (0.6-1.2) L 03/26/23 00:59 Est Cr Clr Drug Dosing 122.7 ml/min 03/26/23 00:59 Est GFR ( Amer) 149.7 ml/min 03/26/23 00:59 Est GFR (Non-Af Amer) 129.2 ml/min 03/26/23 00:59 BUN/Creatinine Ratio 16.9 (10-20) 03/26/23 00:59 Glucose 91 mg/dl (70-99(Fasting)) 03/26/23 00:59 Lactate 0.6 mmol/L (0.4-2.0) 03/26/23 04:17 Calcium 8.1 mg/dl (8.6-10.3) L 03/26/23 00:59 Magnesium 1.5 mg/dl (1.7-2.4) L 03/26/23 00:59 Total Bilirubin 0.9 mg/dl (0.2-1.0) 03/26/23 00:59 AST 16 U/L (13-39) 03/26/23 00:59 ALT 10 U/L (7-52) 03/26/23 00:59 Alkaline Phosphatase 49 U/L (34-104) 03/26/23 00:59 Troponin I High Sens < 2.3 pg/ml (0-14) 03/26/23 00:59 Total Protein 6.0 gm/dl (6.0-8.3) 03/26/23 00:59 Albumin 3.3 gm/dl (3.4-5.0) L 03/26/23 00:59 Globulin 2.7 gm/dl (2.5-4.0) 03/26/23 00:59 Albumin/Globulin Ratio 1.2 (0.9-2) 03/26/23 00:59 Lipase 44 U/L (11-82) 03/26/23 00:59 HCG, Quant 98174 mIU/ml 03/26/23 00:59 Urine Color Dark Yellow 03/26/23 00:50 Urine Appearance Turbid (Clear) A 03/26/23 00:50 Urine pH 6.0 (4.5-7.5) 03/26/23 00:50 Ur Specific Boron 1.020 (1.000-1.030) 03/26/23 00:50 Urine Protein 2+ (Negative) H 03/26/23 00:50 Urine Glucose (UA) Negative (Negative) 03/26/23 00:50 Urine Ketones 1+ (Negative) H 03/26/23 00:50 Urine Blood 1+ (Negative) H 03/26/23 00:50 Urine Nitrite Positive (Negative) A 03/26/23 00:50 Urine Bilirubin Negative (Negative) 03/26/23 00:50 Urine Urobilinogen Positive (Negative) H 03/26/23 00:50 Ur Leukocyte Esterase 2+ (Negative) H 03/26/23 00:50 Urine WBC (Auto) >30 /hpf (0-5) H 03/26/23 00:50 Urine RBC (Auto) 0-4 /hpf (0-4) 03/26/23 00:50 U Hyaline Cast (Auto) 1-5 /lpf (0-5) 03/26/23 00:50 U Epithel Cells (Auto) >30 /lpf (0-5) H 03/26/23 00:50 Urine Bacteria (Auto) 4+ (Negative) H 03/26/23 00:50 SARS-CoV-2, RNA, NAAT NEGATIVE (NEGATIVE) 03/26/23 08:35 Impressions Abdomen Ultrasound 03/26/23 01:01 Exam(s): US ABDOMEN LIMITED EXAM: US Abdomen Limited, Right Upper Quadrant CLINICAL HISTORY: Reason for exam: Right side pain. Currently 20wk.. TECHNIQUE: Real-time ultrasound of the right upper quadrant with image documentation. COMPARISON: No relevant prior studies available. FINDINGS: Liver: Unremarkable. No mass. No intrahepatic bile duct dilation. Gallbladder: Unremarkable. No gallstones. Common bile duct: CBD caliber measures 3.4 mm in diameter. No stones. No dilation. Pancreas: Unremarkable as visualized. Right kidney: There is a right-sided hydroureteronephrosis. No stones. Bilateral ureteric jets are visualized. IMPRESSION: No evidence of cholecystitis or cholelithiasis Right-sided hydroureteronephrosis which could be due to the gravid uterus or ureteric stone. Electronically signed by: Brian Baxter MD 03/26/23 06:44 AM Obstetrics Ultrasound 03/26/23 01:01 Exam(s): US OB LIMITED EXAM: US , Limited CLINICAL HISTORY: Reason for exam: right side pain, 20 wk preg. TECHNIQUE: Real-time limited ultrasound of the maternal uterus with image documentation. COMPARISON: No relevant prior studies available. FINDINGS: Fetus: Single live intrauterine with heart rate is 148 bpm. Gestational age: Estimated gestational age is 19 weeks and 4 days. EFW: Estimated weight is 305 g. Position: Breech presentation. Biometrics: 6 mm right choroid plexus cyst is seen. Placenta: Placenta is located on the right lateral aspect. Cervix: Cervical canal length is 4.2 cm. Vasculature: Prominent veins seen throughout the myometrium. IMPRESSION: Single live intrauterine corresponding to gestational age of 19 weeks and 4 days. Electronically signed by: Brian Baxter MD 03/26/23 06:44 AM
--- NOTE | 2023-03-26 10:49 | History & Physical Report ---
Date of Service March 26, 2023 Assessment & Plan (1) UTI (urinary tract infection): (2) Hydronephrosis: (3) : Plan: Admit to med/surg w/ tele Patient presenting from home with reports of right flank pain, N/V, chills/rigors. Currently 20 weeks . In the ED, afebrile, borderline hypotensive (however BPs seem to run chronically low), normal lactic acid. UA suggestive of UTI. US shows Right-sided hydroureteronephrosis which could be due to the gravid uterus or ureteric stone. Discussed with urology and SOFTWARE TEST MANAGER. Given current lack of fever, leukocytosis, elevated lactate, will observe on IV antibiotics. If not improving, consider CT ABD/pelvis. If patient requires urologic intervention, will need to be transferred to tertiary care center. Received IV ceftriaxone in the ED, continue with Follow urine and blood cultures DVT PROPHYLAXIS SCDs, ambulation encouraged Patient seen in collaboration with Dr. Ivey. I spent a total of 75 minutes coordinating, documenting, and providing care for this patient excluding time spent in the performance of separately billed services. This included personally reviewing all current laboratories and imaging studies, medication reconciliation, outpatient chart review, and discussion with specialists. History of Present Illness Chief Complaint: Right flank pain Primary Care Provider: Carol Ann Carvajal 22-year-old female without significant PMH, currently 20 weeks , who presents to the ED for evaluation of right-sided flank pain. History obtained from the patient and review of outpatient PCP and [facility] records. Patient reports her symptoms have been present for the past 4 days. Reports right-sided flank pain with associated nausea, vomiting, chills/rigors, and feeling feverish. She did not take her temperature. She also reports associated dysuria and urinary frequency. No hematuria. Denies chest pain and shortness of breath. No lightheadedness, dizziness, diaphoresis, syncopal events. In the ED, US shows right-sided hydroureteronephrosis which could be due to the gravid uterus or ureteric stone. UA suggestive of UTI. Patient is borderline hypotensive however BPs seem to be at baseline. She is afebrile. WBC 8.1K, renal function stable, lactic acid 0.6. Patient was given IV Tylenol, IV ceftriaxone, IVF. Allergies Allergy/AdvReac Type Severity Reaction Status Date / Time No Known Allergies Allergy Mild Verified 03/26/23 01:14 Home Medications Medication Instructions Recorded Confirmed Type vit no.95-ferrous 1 tab PO DAILY 03/26/23 03/26/23 History fumarate 28 mg-folic acid 800 mcg tablet () Past Med/Surg History Medical History Anemia Migraine Surgical History No pertinent past surgical history Social History Smoking Status: Current every day smoker Tobacco Type: Cigarettes Cigarettes Per Day: 1/4 pack; Second Hand Exposure: Yes; Do You Dip or Chew Tobacco: No; Hx Alcohol Use: No Hx Substance Use: No Preferred Language: Vietnamese Communication Ability: Effective Collective Bargaining Specialist Required: No Beliefs That Will Affect Care: None marital status: Single Current Living Situation: Family Current Living Situation Comment: home with kids Other Information That Helps Us Care for You: No Feels Safe at Home: Yes Safety Concerns: Feels Safe At This Time Assistive Devices: None Review of Systems Review of Systems: ROS per HPI, all other systems reviewed and negative Physical Exam Constitutional: WD/WN, vitals as above Eyes: PERRL, conjunctivae normal, anicteric sclerae ENMT: external ear and nose normal, oropharynx normal Respiratory: normal respiratory effort, lungs clear to auscultation Cardiovascular: Rate/Rhythm: regular rate and regular rhythm Vessels: normal peripheral pulses Extremities: no edema Gastrointestinal (Abdomen): normal bowel sounds, soft, nontender, no hepatosplenomegaly Musculoskeletal: no cyanosis or clubbing, extremities motor strength 5/5 Skin: no rashes, warm and dry Neurologic: PERRL, EOMI, accommodation nl, no face palsy, no dysarthria Psychiatric: A+Ox3, euthymic affect Genitourinary: + CVA tenderness (right) Results & Data Results & Data Vital Signs (Past 12 Hours) Vital Signs Temp Pulse Pulse Resp BP BP Pulse Ox 03/26/23 10:00 76 18 88/58 L 99 03/26/23 09:00 62 14 91/48 L 98 03/26/23 08:00 70 17 91/50 L 97 03/26/23 08:16 36.6 C 03/26/23 07:00 71 16 94 03/26/23 07:00 81/54 L 03/26/23 06:30 63 15 96 03/26/23 06:30 87/52 L 03/26/23 06:00 74 12 95 03/26/23 06:00 81/47 L 03/26/23 05:36 71 12 84/49 L 98 03/26/23 04:47 90/54 L 03/26/23 04:47 62 15 100 03/26/23 01:01 110 H 03/26/23 02:00 37.3 C 91 H 18 84/43 L 95 03/26/23 01:30 102 H 15 97 03/26/23 01:01 107 H 12 90/53 L 97 03/26/23 03:58 70 18 81/44 L 97 03/26/23 00:49 37.4 C 109 H 22 90/53 L 97 O2 Del Method 03/26/23 10:00 Room Air 03/26/23 09:00 Room Air 03/26/23 08:00 Room Air 03/26/23 08:16 03/26/23 07:00 03/26/23 07:00 03/26/23 06:30 Room Air 03/26/23 06:30 03/26/23 06:00 Room Air 03/26/23 06:00 03/26/23 05:36 Room Air 03/26/23 04:47 03/26/23 04:47 Room Air 03/26/23 01:01 03/26/23 02:00 Room Air 03/26/23 01:30 Room Air 03/26/23 01:01 Room Air 03/26/23 03:58 Room Air 03/26/23 00:49 Room Air Laboratory Results Short CBC 03/26/23 Range/Units 00:59 WBC 8.10 (4.8-10.8) K/ul Hgb 10.4 L (12.0-16.0) g/dl Hct 29.5 L (37.0-47.0) % Plt Count 173 (130-400) K/uL BMP 03/26/23 00:59 Sodium 136 Potassium 3.2 L Chloride 110 H Carbon Dioxide 17 L BUN 10 Creatinine 0.59 L Glucose 91 Calcium 8.1 L Liver Function 03/26/23 Range/Units 00:59 Total Bilirubin 0.9 (0.2-1.0) mg/dl AST 16 (13-39) U/L ALT 10 (7-52) U/L Alkaline Phosphatase 49 (34-104) U/L Albumin 3.3 L (3.4-5.0) gm/dl Urine 03/26/23 Range/Units 00:50 Urine Color Dark Yellow Urine Appearance Turbid A (Clear) Urine pH 6.0 (4.5-7.5) Ur Specific Drake 1.020 (1.000-1.030) Urine Protein 2+ H (Negative) Urine Glucose (UA) Negative (Negative) Diagnostic Findings Abdomen Ultrasound 03/26/23 01:01 Exam(s): US ABDOMEN LIMITED EXAM: US Abdomen Limited, Right Upper Quadrant CLINICAL HISTORY: Reason for exam: Right side pain. Currently 20wk.. TECHNIQUE: Real-time ultrasound of the right upper quadrant with image documentation. COMPARISON: No relevant prior studies available. FINDINGS: Liver: Unremarkable. No mass. No intrahepatic bile duct dilation. Gallbladder: Unremarkable. No gallstones. Common bile duct: CBD caliber measures 3.4 mm in diameter. No stones. No dilation. Pancreas: Unremarkable as visualized. Right kidney: There is a right-sided hydroureteronephrosis. No stones. Bilateral ureteric jets are visualized. IMPRESSION: No evidence of cholecystitis or cholelithiasis Right-sided hydroureteronephrosis which could be due to the gravid uterus or ureteric stone. Electronically signed by: Brian Baxter MD 03/26/23 06:44 AM Obstetrics Ultrasound 03/26/23 01:01 Exam(s): US OB LIMITED EXAM: US , Limited CLINICAL HISTORY: Reason for exam: right side pain, 20 wk preg. TECHNIQUE: Real-time limited ultrasound of the maternal uterus with image documentation. COMPARISON: No relevant prior studies available. FINDINGS: Fetus: Single live intrauterine with heart rate is 148 bpm. Gestational age: Estimated gestational age is 19 weeks and 4 days. EFW: Estimated weight is 305 g. Position: Breech presentation. Biometrics: 6 mm right choroid plexus cyst is seen. Placenta: Placenta is located on the right lateral aspect. Cervix: Cervical canal length is 4.2 cm. Vasculature: Prominent veins seen throughout the myometrium. IMPRESSION: Single live intrauterine corresponding to gestational age of 19 weeks and 4 days. Electronically signed by: Brian Baxter MD 03/26/23 06:44 AM Code Status & VTE Plan VTE Prophylaxis Plan VTE Prophylaxis will be ordered: Yes Supervising Physician Co-Signing Physician Notes Attending addendum: Patient was seen and examined in medical telemetry unit She is 19 weeks and has been complaining of right-sided abdominal pain for the last 2 to 3 days associated with fever and chills The pain does not radiate to the groin and it goes around She complains to frequency but no dysuria Noted to have a UTI with mild right hydronephrosis On examination Lying in bed comfortably and she has been feeling better already Denies any significant symptoms Chest-clear to auscultate bilaterally Heart-S1, S2 regular Abdomen-mildly distended due to and not examined Extremities-trace edema bilaterally 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
--- NOTE | 2023-03-26 10:54 | Student Report ---
[facility] Med Student H&P Advanced Practice Practitioner Student Attestation: Not for use in clinical decision making or plan of care forumlation. Date of Service Date of Service: March 26, 2023 HPI HPI: 22 yo with pmhx migraines with aura, anxiety, current daily smoker, 20 weeks presented to ED with approximately 4 days of right abdominal pain. Per pt she started with abdominal pain, fever, chills, and rigors last Saturday and has continued off and on with symptoms. She also reports some vomiting this past weekend with episodes of shivering. She points to her right side and flank when asked where the pain is. She denies taking anything for it. Pt denies any changes in urination habits, hematuria, amount. Pt denies any other abdominal pain, bloating, changes in bowel habits, blood in stool. She denies SEQUEIRA, vision changes, dizziness, lightheadedness, CP, SOB. States everything is "going well" with the so far. In ED pt rec'd 2L NSS IV for hypotension, potassium and magnesium were repleted. She was also given a dose of ceftriaxone for positive UA. Blood cultures were also sent. Pt History Pt History: Medical History (Updated 03/26/23 @ 10:36 by MANJINDER Villagran) Anemia Migraine Surgical History (Updated 03/26/23 @ 10:36 by MANJINDER Villagran) No pertinent past surgical history Social History Smoking Status: Current every day smoker, 5 cigarettes per day Tobacco Type: Cigarettes Second Hand Exposure: Yes; Do You Dip or Chew Tobacco: No; Hx Alcohol Use: No Hx Substance Use: No Preferred Language: Yoruba Communication Ability: Effective Risk Assessment Analyst Required: No Beliefs That Will Affect Care: None marital status: Single Current Living Situation: Family and Significant Other Feels Safe at Home: Yes Assistive Devices: None ROS ROS: See above for pertinent positives & negatives. A total of 10 systems reviewed and were otherwise negative. Physical Exam Physical Exam: Vital signs reviewed. General: Well-appearing, in no significant distress. Converses easily and appropriately. HEENT: No scleral icterus, PERRLA, neck supple. Atraumatic. Cardiovascular: Regular rate and rhythm, no extra sounds. DP pulses +2 bilateral. Pulmonary: Clear to auscultation bilaterally, normal work of breathing. Abdomen: Soft, nontender, nondistended, positive bowel sounds. Musculoskeletal: Atraumatic, no peripheral edema. Postive CVA tenderness to righ t flank. Neurologic: Patient awake alert and oriented x 3, full strength in all 4 extremities. Skin: Warm, dry, no rash Results Results: Vital Signs Temp 36.6 C 03/26/23 08:16 Pulse 76 03/26/23 10:00 Resp 18 03/26/23 10:00 BP 88/58 L 03/26/23 10:00 Pulse Ox 99 03/26/23 10:00 O2 Del Method Room Air 03/26/23 10:00 Intake & Output 03/25/23 03/26/23 03/26/23 18:59 06:59 18:59 Intake Total 2150 / 2150 100 / 100 Balance 2150 / 2150 100 / 100 Weight 59.3 kg Intake: IV 2150 / 2150 100 / 100 Acetaminophen 1,000 mg In 100 100 / 100 ml @ 400 mls/hr IV NOW STA Rx#: [id number] Magnesium Sulfate / D5w 1 gm In 100 / 100 100 ml @ 50 mls/hr IV Q2H JOSHUA Rx#:[id number] Sodium Chloride 0.9% 1000ML 500 1500 / 1500 ml @ 999 mls/hr IV .Q31M ONE Rx#:[id number] cefTRIAXone SODIUM 1,000 mg In 50 / 50 Dextrose 5% Ad-Van 50 ml @ 100 mls/hr IV NOW STA Rx#:[id number] Left Antecubital 500 / 500 Other: Weight Measurement Method Built in [facility] Laboratory Results WBC 8.10 K/ul (4.8-10.8) 03/26/23 00:59 RBC 3.48 M/uL (4.20-5.40) L 03/26/23 00:59 Hgb 10.4 g/dl (12.0-16.0) L 03/26/23 00:59 Hct 29.5 % (37.0-47.0) L 03/26/23 00:59 MCV 84.8 fL (80.0-100.0) 03/26/23 00:59 MCH 29.9 pg (25.0-34.0) 03/26/23 00:59 MCHC 35.3 g/dL (32.0-36.0) 03/26/23 00:59 RDW Std Deviation 44.8 fL (36.4-46.3) 03/26/23 00:59 RDW Coeff of Karen 14.6 % (11.5-14.5) H 03/26/23 00:59 Plt Count 173 K/uL (130-400) 03/26/23 00:59 MPV 11.7 fL (9.4-12.4) 03/26/23 00:59 Immature Gran % (Auto) 0.6 % 03/26/23 00:59 Neut % (Auto) 85.2 % 03/26/23 00:59 Lymph % (Auto) 9.5 % 03/26/23 00:59 Elk % (Auto) 4.3 % 03/26/23 00:59 Eos % (Auto) 0.2 % 03/26/23 00:59 Baso % (Auto) 0.2 % 03/26/23 00:59 Neut # (Auto) 6.89 K/uL (1.40-6.50) H 03/26/23 00:59 Lymph # (Auto) 0.77 K/uL (1.2-3.4) L 03/26/23 00:59 Elk # (Auto) 0.35 K/uL (0.11-0.59) 03/26/23 00:59 Eos # (Auto) 0.02 K/uL (0-0.50) 03/26/23 00:59 Baso # (Auto) 0.02 K/uL (0-0.2) 03/26/23 00:59 Immature Gran # (Auto) 0.05 K/uL (0.01-0.20) 03/26/23 00:59 Sodium 136 mmol/L (136-145) 03/26/23 00:59 Potassium 3.2 mmol/L (3.5-5.1) L 03/26/23 00:59 Chloride 110 mmol/L (98-107) H 03/26/23 00:59 Carbon Dioxide 17 mmol/L (21-32) L 03/26/23 00:59 Anion Gap 9 (3-11) 03/26/23 00:59 BUN 10 mg/dl (6-23) 03/26/23 00:59 Creatinine 0.59 mg/dl (0.6-1.2) L 03/26/23 00:59 Est Cr Clr Drug Dosing 122.7 ml/min 03/26/23 00:59 Est GFR ( Amer) 149.7 ml/min 03/26/23 00:59 Est GFR (Non-Af Amer) 129.2 ml/min 03/26/23 00:59 BUN/Creatinine Ratio 16.9 (10-20) 03/26/23 00:59 Glucose 91 mg/dl (70-99(Fasting)) 03/26/23 00:59 Lactate 0.6 mmol/L (0.4-2.0) 03/26/23 04:17 Calcium 8.1 mg/dl (8.6-10.3) L 03/26/23 00:59 Magnesium 1.5 mg/dl (1.7-2.4) L 03/26/23 00:59 Total Bilirubin 0.9 mg/dl (0.2-1.0) 03/26/23 00:59 AST 16 U/L (13-39) 03/26/23 00:59 ALT 10 U/L (7-52) 03/26/23 00:59 Alkaline Phosphatase 49 U/L (34-104) 03/26/23 00:59 Troponin I High Sens < 2.3 pg/ml (0-14) 03/26/23 00:59 Total Protein 6.0 gm/dl (6.0-8.3) 03/26/23 00:59 Albumin 3.3 gm/dl (3.4-5.0) L 03/26/23 00:59 Globulin 2.7 gm/dl (2.5-4.0) 03/26/23 00:59 Albumin/Globulin Ratio 1.2 (0.9-2) 03/26/23 00:59 Lipase 44 U/L (11-82) 03/26/23 00:59 HCG, Quant 48664 mIU/ml 03/26/23 00:59 Urine Color Dark Yellow 03/26/23 00:50 Urine Appearance Turbid (Clear) A 03/26/23 00:50 Urine pH 6.0 (4.5-7.5) 03/26/23 00:50 Ur Specific [place] 1.020 (1.000-1.030) 03/26/23 00:50 Urine Protein 2+ (Negative) H 03/26/23 00:50 Urine Glucose (UA) Negative (Negative) 03/26/23 00:50 Urine Ketones 1+ (Negative) H 03/26/23 00:50 Urine Blood 1+ (Negative) H 03/26/23 00:50 Urine Nitrite Positive (Negative) A 03/26/23 00:50 Urine Bilirubin Negative (Negative) 03/26/23 00:50 Urine Urobilinogen Positive (Negative) H 03/26/23 00:50 Ur Leukocyte Esterase 2+ (Negative) H 03/26/23 00:50 Urine WBC (Auto) >30 /hpf (0-5) H 03/26/23 00:50 Urine RBC (Auto) 0-4 /hpf (0-4) 03/26/23 00:50 U Hyaline Cast (Auto) 1-5 /lpf (0-5) 03/26/23 00:50 U Epithel Cells (Auto) >30 /lpf (0-5) H 03/26/23 00:50 Urine Bacteria (Auto) 4+ (Negative) H 03/26/23 00:50 SARS-CoV-2, RNA, NAAT NEGATIVE (NEGATIVE) 03/26/23 08:35 Impressions Abdomen Ultrasound 03/26/23 01:01 Exam(s): US ABDOMEN LIMITED EXAM: US Abdomen Limited, Right Upper Quadrant CLINICAL HISTORY: Reason for exam: Right side pain. Currently 20wk.. TECHNIQUE: Real-time ultrasound of the right upper quadrant with image documentation. COMPARISON: No relevant prior studies available. FINDINGS: Liver: Unremarkable. No mass. No intrahepatic bile duct dilation. Gallbladder: Unremarkable. No gallstones. Common bile duct: CBD caliber measures 3.4 mm in diameter. No stones. No dilation. Pancreas: Unremarkable as visualized. Right kidney: There is a right-sided hydroureteronephrosis. No stones. Bilateral ureteric jets are visualized. IMPRESSION: No evidence of cholecystitis or cholelithiasis Right-sided hydroureteronephrosis which could be due to the gravid uterus or ureteric stone. Electronically signed by: Brian Baxter MD 03/26/23 06:44 AM Obstetrics Ultrasound 03/26/23 01:01 Exam(s): US OB LIMITED EXAM: US , Limited CLINICAL HISTORY: Reason for exam: right side pain, 20 wk preg. TECHNIQUE: Real-time limited ultrasound of the maternal uterus with image documentation. COMPARISON: No relevant prior studies available. FINDINGS: Fetus: Single live intrauterine with heart rate is 148 bpm. Gestational age: Estimated gestational age is 19 weeks and 4 days. EFW: Estimated weight is 305 g. Position: Breech presentation. Biometrics: 6 mm right choroid plexus cyst is seen. Placenta: Placenta is located on the right lateral aspect. Cervix: Cervical canal length is 4.2 cm. Vasculature: Prominent veins seen throughout the myometrium. IMPRESSION: Single live intrauterine corresponding to gestational age of 19 weeks and 4 days. Electronically signed by: Brian Baxter MD 03/26/23 06:44 AM Code/VTE Code/VTE: See provider note. A&P A&P: 1. Hydronephrosis, possible kidney stone, UTI on adm UA, (20wks). US completed, showed hydronephrosis but can't r/o kidney stone. Pt is afebrile at this time, without leukocytosis, but has positive CVA tenderness on the right flank. Rec'd one dose of ceftriaxone in ED for UTI. Per rn gyn, ok for pt to have CT scan to r/o kidney stone. Admit under Hospitalist service with telemetry. Consults to urology and gynecology VS per protocol I&O every shift Continue acetaminophen PRN for pain IV fluids, NSS at 125mls/hr Continue ceftriaxone IV, may adjust once cultures result. Daily CBC, BMP, Magnesium 2. Diet/Bowel Regimen Pt may have regular diet Will consider stool softener if needed for constipation 3. DVT prophylaxis SCDs to BLE 4. Disposition Admit under hospitalist service with consults to urology and rn gyn. Pt may need transfer to tertiary center f/t if further treatment is required for kidney stone. CC Time CC Time: Student note, nonbillable.
[2023-03-26] MEDS ORDERED: ACETAMINOPHEN 325 MG TAB PO PRN (11:06)
[2023-03-26] MEDS: SODIUM CHLORIDE 0.9% 1000ML 1,000 ML IV SCH ×2 (11:46→20:00)
--- NOTE | 2023-03-26 11:57 | Urology Consultation ---
Date of Consultation March 26, 2023 Assessment & Plan (1) Hydronephrosis: (2) UTI (urinary tract infection): (3) : Plan 22yo/F who is currently 20 weeks who presented to the ED today with acute right flank pain, nausea, vomiting, and chills. Urinalysis suggestive of infection. Abdominal ultrasound shows right-sided hydronephrosis. Urology consulted for hydronephrosis, concern of possible ureteral stone. Afebrile, hypotensive though BP seem to run low at baseline. Labs show no leukocytosis and stable renal function. Urinalysis suggestive of infection. Urine and blood cultures pending. On Ceftriaxone. The abdominal ultrasound shows right-sided hydronephrosis which could be due to the gravid uterus or ureteral stone. Based on the ultrasound imaging, we cannot definitively rule out a ureteral stone as the imaging does not include the ureters. Discussed transfer to tertiary center given the concern for stone in the setting of UTI. Discussed with hospital team - Plan is for observation with IV antibiotics. If not improving, they will consider CT ABD/pelvis. We discussed that if patient does undergo CT imaging is found to have a ureteral stone, our recommendation would still be for transfer to tertiary center. Recommend close monitoring. If she clinically deteriorates and/or is found to have a ureteral stone, then recommendation is for transfer Discussed with patient. Urology will follow peripherally. Please contact us with any further questions. Plan of care discussed with Dr. Barron. History of Present Illness Attending Physician: Adrianna Ivey MD History of Present Illness 22-year-old female without significant PMH who is currently 20 weeks who presented to the ED today for evaluation of right-sided flank pain. She reports acute right-sided flank pain with associated nausea, vomiting, chills, subjective fevers at home. Also notes urinary frequency and dysuria. On arrival, she was afebrile and hypotensive (BP seems to be at baseline per chart review). No leukocytosis and stable renal function. Urinalysis suggestive of infection. Renal ultrasound notable for right-sided hydronephrosis which could be due to the gravid uterus or ureteral stone. Patient examined at bedside in the ED. Awake, resting in bed on arrival. No acute distress. Reports the right-sided pain has improved since arrival. Currently denies fevers, chills, nausea, vomiting. Voiding without issue, does report urinary frequency and dysuria. Denies hematuria. Feels she is emptying her bladder well. Denies prior urological history or history of stones. Allergies Allergy/AdvReac Type Severity Reaction Status Date / Time No Known Allergies Allergy Mild Verified 03/26/23 01:14 Home Medications Medication Instructions Recorded Confirmed Type vit no.95-ferrous 1 tab PO DAILY 03/26/23 03/26/23 History fumarate 28 mg-folic acid 800 mcg tablet () Patient History Medical History Anemia Migraine Surgical History No pertinent past surgical history Social History Smoking Status: Current every day smoker Tobacco Type: Cigarettes Second Hand Exposure: Yes; Do You Dip or Chew Tobacco: No; Hx Alcohol Use: No Hx Substance Use: No Preferred Language: Italian Communication Ability: Effective Stove Fitter Required: No Beliefs That Will Affect Care: None marital status: Single Current Living Situation: Family and Significant Other Feels Safe at Home: Yes Assistive Devices: None Review of Systems Review of Systems: All systems reviewed & are unremarkable except as noted in HPI & below Physical Exam Constitutional: no acute distress Eyes: PERRL, conjunctivae normal, anicteric sclerae ENMT: external ear and nose normal, oropharynx normal Neck: normal visual inspection Respiratory: normal respiratory effort; no respiratory distress and no labored breathing Musculoskeletal: Head/Neck/Chest: normocephalic Skin: No visible rashes or lesions to exposed skin areas Neurologic: moves all extremities and awake Psychiatric: A+Ox3, euthymic affect Results & Data Vital Signs (Past 12 Hours) Vital Signs Temp Pulse Pulse Resp BP BP Pulse Ox 03/26/23 11:12 36.7 C 74 18 88/54 L 99 03/26/23 10:00 76 18 88/58 L 99 03/26/23 09:00 62 14 91/48 L 98 03/26/23 08:00 70 17 91/50 L 97 03/26/23 08:16 36.6 C 03/26/23 07:00 71 16 94 03/26/23 07:00 81/54 L 03/26/23 06:30 63 15 96 03/26/23 06:30 87/52 L 03/26/23 06:00 74 12 95 03/26/23 06:00 81/47 L 03/26/23 05:36 71 12 84/49 L 98 03/26/23 04:47 90/54 L 03/26/23 04:47 62 15 100 03/26/23 01:01 110 H 03/26/23 02:00 37.3 C 91 H 18 84/43 L 95 03/26/23 01:30 102 H 15 97 03/26/23 01:01 107 H 12 90/53 L 97 03/26/23 03:58 70 18 81/44 L 97 03/26/23 00:49 37.4 C 109 H 22 90/53 L 97 O2 Del Method 03/26/23 11:12 Room Air 03/26/23 10:00 Room Air 03/26/23 09:00 Room Air 03/26/23 08:00 Room Air 03/26/23 08:16 03/26/23 07:00 03/26/23 07:00 03/26/23 06:30 Room Air 03/26/23 06:30 03/26/23 06:00 Room Air 03/26/23 06:00 03/26/23 05:36 Room Air 03/26/23 04:47 03/26/23 04:47 Room Air 03/26/23 01:01 03/26/23 02:00 Room Air 03/26/23 01:30 Room Air 03/26/23 01:01 Room Air 03/26/23 03:58 Room Air 03/26/23 00:49 Room Air PG Care Time/CCT Total # of Minutes Spent Total Time Spent with Patient: Total time spent is greater than 50% in coordination of care (as documented) at patient's floor/unit and/or counseling patient: Coding Level of Care Code 98734 IN/OBS CONSULT LVL 3,45M Diagnoses Hydronephrosis N13.30 UTI (urinary tract infection) N39.0 Z34.90
--- NOTE | 2023-03-26 12:01 | Electrocardiogram Report ---
Test Reason : Blood Pressure : / mmHG Vent. Rate : 083 BPM Atrial Rate : 083 BPM P-R Int : 158 ms QRS Dur : 084 ms QT Int : 392 ms P-R-T Axes : 057 081 027 degrees QTc Int : 460 ms Normal sinus rhythm Nonspecific T wave abnormality Prolonged QT Abnormal ECG No previous ECGs available Confirmed by Aman Merino ([id number]) on 03/26/2023 12:01:23 PM Referred By: REFERRED SELF Confirmed By:Moncho Merino
--- NOTE | 2023-03-26 16:52 | OB/GYN Consultation ---
Date of Consultation March 26, 2023 Assessment & Plan (1) Hydronephrosis: Continue IV hydration and antibiotics (2) UTI (urinary tract infection): (3) : History of Present Illness Reason for Consultation: Urinary tract infection in Requesting Physician: Dr. Ugarte Attending Physician: Adrianna Ivey MD History of Present Illness 22-year-old female para 2-0-0-2 at approximately 20 weeks was seen in the ER with complaints of right-sided back pain she is currently experiencing no pain on the time of consultation she presented with right-sided flank pain work- up in the ER was consistent with a urinary tract infection and hydronephrosis no evidence of kidney stone at the present time. A urology consult was obtained to rule out kidney stones. The patient is now currently on antibiotics. She is afebrile. The patient was subsequently admitted and is currently on antibiotic Allergies Allergy/AdvReac Type Severity Reaction Status Date / Time No Known Allergies Allergy Mild Verified 03/26/23 01:14 Home Medications Medication Instructions Recorded Confirmed Type vit no.95-ferrous 1 tab PO DAILY 03/26/23 03/26/23 History fumarate 28 mg-folic acid 800 mcg tablet () Patient History Medical History Anemia Migraine Surgical History No pertinent past surgical history Social History Smoking Status: Current every day smoker Tobacco Type: Cigarettes Cigarettes Per Day: 1/4 pack; Second Hand Exposure: Yes; Do You Dip or Chew Tobacco: No; Hx Alcohol Use: No Hx Substance Use: No Preferred Language: Guamanian Communication Ability: Effective Targeting Acquisition Officer Required: No Beliefs That Will Affect Care: None marital status: Single Current Living Situation: Family Current Living Situation Comment: home with kids Other Information That Helps Us Care for You: No Feels Safe at Home: Yes Safety Concerns: Feels Safe At This Time Assistive Devices: None Review of Systems Review of Systems: All systems reviewed & are unremarkable except as noted in HPI & below Physical Exam Constitutional: WD/WN, vitals as above Musculoskeletal: Extremities: extremities normal to inspection Skin: no rashes, warm and dry Neurologic: patellar DTR's 2+ bilat, sensation intact Psychiatric: A+Ox3, euthymic affect Genitourinary: heart tones present by Doppler Results & Data Vital Signs (Past 12 Hours) Vital Signs Temp Pulse Pulse Resp BP BP Pulse Ox 03/26/23 14:53 72 03/26/23 13:48 36.5 C 73 17 93/52 L 100 03/26/23 11:12 36.7 C 74 18 88/54 L 99 03/26/23 10:00 76 18 88/58 L 99 03/26/23 09:00 62 14 91/48 L 98 03/26/23 08:00 70 17 91/50 L 97 03/26/23 08:16 36.6 C 03/26/23 07:00 71 16 94 03/26/23 07:00 81/54 L 03/26/23 06:30 63 15 96 03/26/23 06:30 87/52 L 03/26/23 06:00 74 12 95 03/26/23 06:00 81/47 L 03/26/23 05:36 71 12 84/49 L 98 03/26/23 04:47 90/54 L 03/26/23 04:47 62 15 100 O2 Del Method 03/26/23 14:53 03/26/23 13:48 Room Air 03/26/23 11:12 Room Air 03/26/23 10:00 Room Air 03/26/23 09:00 Room Air 03/26/23 08:00 Room Air 03/26/23 08:16 03/26/23 07:00 03/26/23 07:00 03/26/23 06:30 Room Air 03/26/23 06:30 03/26/23 06:00 Room Air 03/26/23 06:00 03/26/23 05:36 Room Air 03/26/23 04:47 03/26/23 04:47 Room Air Diagnostic Findings Ultrasound reveals right-sided hydronephrosis
[2023-03-26] MEDS: CALCIUM CARBONATE 500 MG CHEWABLE TAB PO PRN (21:25)
--- NOTE | 2023-03-26 21:26 | Emergency Department Note ---
History of Present Illness General Chief complaint: Abdominal Pain Stated complaint: ABDOMINAL PAIN/ 20 WKS Time Seen by Provider: 03/26/23 00:54 History of Present Illness Maximum Pain Intensity: 6 This is a 22-year-old female presenting to the emergency department for evaluation of right-sided abdominal pain worsening over the past 2 days. The patient is approximately 20 weeks with her third first 2 pregnancies were fairly unremarkable, and she states that she did have an early ultrasound with the [facility] CORPORATE SECURITY OFFICER team that showed an intrauterine . The patient states that her pain is a 6/10 and has been taking Tylenol without significant improvement of symptoms. She has had some emesis that is new. She is with bodyaches. No difficulty is reported using the bathroom. No chest pain, chest tightness, or shortness of breath. Patient arrives via EMS and was hypotensive for EMS. Patient has been given 600 mL fluid prior to arrival. Home Medications Medication Instructions Recorded Confirmed Type vit no.95-ferrous 1 tab PO DAILY 03/26/23 03/26/23 History fumarate 28 mg-folic acid 800 mcg tablet () Allergies Allergy/AdvReac Type Severity Reaction Status Date / Time No Known Allergies Allergy Mild Verified 03/26/23 01:14 Past Med/Surg History Medical History Anemia Migraine Surgical History No pertinent past surgical history Social History Smoking Status: Current every day smoker Tobacco Type: Cigarettes Cigarettes Per Day: 1/4 pack; Second Hand Exposure: Yes; Do You Dip or Chew Tobacco: No; Hx Alcohol Use: No Hx Substance Use: No Preferred Language: Uzbek Communication Ability: Effective 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 Beliefs That Will Affect Care: None marital status: Single Current Living Situation: Family Current Living Situation Comment: home with kids Other Information That Helps Us Care for You: No Feels Safe at Home: Yes Safety Concerns: Feels Safe At This Time Assistive Devices: None Review of Systems A total of 10 systems reviewed and were otherwise negative Physical Exam Vital Signs Vital Signs - 24 hr 03/26/23 03:58 03/26/23 01:30 03/26/23 02:00 Temperature 37.3 C Temperature Source Pulse Rate 102 H 91 H Pulse Rate [Apical] 70 Pulse Rate from SpO2 Sensor 102 H 91 H Respiratory Rate 18 15 18 Blood Pressure 84/43 L Blood Pressure [Right Arm] 81/44 L Blood Pressure Mean 56 Blood Pressure Mean [Right Arm] 56 Pulse Oximetry 97 97 95 Oxygen Delivery Method Room Air Room Air Room Air 03/26/23 04:47 03/26/23 04:47 03/26/23 05:36 Temperature Temperature Source Pulse Rate 62 71 Pulse Rate [Apical] Pulse Rate from SpO2 Sensor 64 66 Respiratory Rate 15 12 Blood Pressure 90/54 L 84/49 L Blood Pressure [Right Arm] Blood Pressure Mean 66 60 Blood Pressure Mean [Right Arm] Pulse Oximetry 100 98 Oxygen Delivery Method Room Air Room Air 03/26/23 06:00 03/26/23 06:00 03/26/23 06:30 Temperature Temperature Source Pulse Rate 74 Pulse Rate [Apical] Pulse Rate from SpO2 Sensor 72 Respiratory Rate 12 Blood Pressure 81/47 L 87/52 L Blood Pressure [Right Arm] Blood Pressure Mean 65 59 Blood Pressure Mean [Right Arm] Pulse Oximetry 95 Oxygen Delivery Method Room Air 03/26/23 06:30 03/26/23 07:00 03/26/23 07:00 Temperature Temperature Source Pulse Rate 63 71 Pulse Rate [Apical] Pulse Rate from SpO2 Sensor 63 69 Respiratory Rate 15 16 Blood Pressure 81/54 L Blood Pressure [Right Arm] Blood Pressure Mean 58 Blood Pressure Mean [Right Arm] Pulse Oximetry 96 94 Oxygen Delivery Method Room Air 03/26/23 08:16 03/26/23 08:00 Temperature 36.6 C Temperature Source Oral Pulse Rate 70 Pulse Rate [Apical] Pulse Rate from SpO2 Sensor 69 Respiratory Rate 17 Blood Pressure 91/50 L Blood Pressure [Right Arm] Blood Pressure Mean 63 Blood Pressure Mean [Right Arm] Pulse Oximetry 97 Oxygen Delivery Method Room Air VITALS: Vitals are noted on the nurse's note and reviewed by myself. Vital signs with hypotension and tachycardia GENERAL: Well-developed, well-nourished, white female, who is in no acute distress and resting comfortably. Patient is cooperative with the examination. HEAD: Normocephalic atraumatic. NECK: Supple without nuchal rigidity. No lymphadenopathy. No thyromegaly. Cervical spine is nontender. HEART: Regular rate and rhythm without murmurs gallops or rubs. LUNGS: Clear to auscultation bilaterally without wheezes, rales or rhonchi. No retractions or accessory muscle use. ABDOMEN: Positive normal bowel sounds x 4. Soft, nontender, without masses or organomegaly. No guarding or rebound tenderness. MUSCULOSKELETAL: No muscle atrophy, erythema, or edema noted. Full range of motion in all extremities. Course Administered Medications Calcium Carbonate (Calcium Carbonate 500 Mg Chewable Tab) 1,000 mg PO Q6H PRN PRN Reason: Indigestion Stop: 04/25/23 21:04 Last Admin: 03/26/23 21:25 Dose: 1,000 mg Documented By: ZAHEER Sodium Chloride (Nss 1000ml) 1,000 mls @ 125 mls/hr IV .Q8H JOSHUA Stop: 03/27/23 11:05 Last Admin: 03/26/23 20:00 Dose: 125 mls/hr Documented By: Infusion: 03/26/23 19:46 Dose: 125 mls/hr Documented By: Admin: 03/26/23 11:46 Dose: 125 mls/hr Documented By: MMG Discontinued Medications Acetaminophen (Ofirmev) 1,000 mg in 100 mls @ 400 mls/hr IV NOW STA Stop: 03/26/23 01:17 Last Infusion: 03/26/23 01:25 Dose: 0 mls/hr Documented By: Admin: 03/26/23 01:09 Dose: 400 mls/hr Documented By: Sodium Chloride (Nss 1000ml) 1,000 mls @ 999 mls/hr IV .Q1H1M JOSHUA Stop: 03/26/23 02:15 Last Infusion: 03/26/23 03:16 Dose: 0 mls/hr Documented By: Admin: 03/26/23 02:15 Dose: 999 mls/hr Documented By: Ceftriaxone Sodium 1,000 mg/ (Dextrose) 50 mls @ 100 mls/hr IV NOW STA Stop: 03/26/23 04:12 Last Infusion: 03/26/23 05:18 Dose: 0 mls/hr Documented By: Admin: 03/26/23 04:45 Dose: 100 mls/hr Documented By: Sodium Chloride (Nss 1000ml) 500 mls @ 999 mls/hr IV .Q31M ONE Stop: 03/26/23 04:34 Last Infusion: 03/26/23 05:38 Dose: 0 mls/hr Documented By: Admin: 03/26/23 04:57 Dose: 999 mls/hr Documented By: Magnesium Sulfate/Dextrose (Magnesium Sulfate / D5w) 1 gm in 100 mls @ 50 mls/hr IV Q2H JOSHUA Stop: 03/26/23 12:44 Last Infusion: 03/26/23 12:57 Dose: 0 mls/hr Documented By: Admin: 03/26/23 10:47 Dose: 50 mls/hr Documented By: Infusion: 03/26/23 10:47 Dose: 0 mls/hr Documented By: Admin: 03/26/23 08:49 Dose: 50 mls/hr Documented By: GUERA Ondansetron HCl (Ondansetron Inj 2 Mg/Ml 2 Ml Vial) 4 mg IV NOW STA Stop: 03/26/23 01:04 Last Admin: 03/26/23 01:09 Dose: 4 mg Documented By: Potassium Chloride (Potassium Chloride Crtab 20 Meq Tabcr) 40 meq PO NOW STA Stop: 03/26/23 08:40 Last Admin: 03/26/23 08:49 Dose: 40 meq Documented By: GUERA Medical Decision Making Differential Diagnosis Differential diagnosis: Etiologies such as biliary colic, cholecystitis, hepatitis, pancreatitis, cardiac disease, pancreatitis, gastritis, peptic ulcer disease, appendicitis, cystitis, diverticulitis, mesenteric ischemia, inflammatory bowel disease, ileus, bowel obstruction, testicular/adnexal torsion, aortic pathology, shingles, as well as others were considered Laboratory Data 03/26/23 00:59 03/26/23 00:59 Lab Results 03/26/23 03/26/23 03/26/23 Range/Units 00:50 00:59 00:59 WBC 8.10 (4.8-10.8) K/ul RBC 3.48 L (4.20-5.40) M/uL Hgb 10.4 L (12.0-16.0) g/dl Hct 29.5 L (37.0-47.0) % MCV 84.8 (80.0-100.0) fL MCH 29.9 (25.0-34.0) pg MCHC 35.3 (32.0-36.0) g/dL RDW Std Deviation 44.8 (36.4-46.3) fL RDW Coeff of Karen 14.6 H (11.5-14.5) % Plt Count 173 (130-400) K/uL MPV 11.7 (9.4-12.4) fL Immature Gran % (Auto) 0.6 % Neut % (Auto) 85.2 % Lymph % (Auto) 9.5 % Carbon % (Auto) 4.3 % Eos % (Auto) 0.2 % Baso % (Auto) 0.2 % Neut # (Auto) 6.89 H (1.40-6.50) K/uL Lymph # (Auto) 0.77 L (1.2-3.4) K/uL Carbon # (Auto) 0.35 (0.11-0.59) K/uL Eos # (Auto) 0.02 (0-0.50) K/uL Baso # (Auto) 0.02 (0-0.2) K/uL Immature Gran # (Auto) 0.05 (0.01-0.20) K/uL Sodium 136 (136-145) mmol/L Potassium 3.2 L (3.5-5.1) mmol/L Chloride 110 H (98-107) mmol/L Carbon Dioxide 17 L (21-32) mmol/L Anion Gap 9 (3-11) BUN 10 (6-23) mg/dl Creatinine 0.59 L (0.6-1.2) mg/dl Est Cr Clr Drug Dosing 122.7 ml/min Est GFR ( Amer) 149.7 ml/min Est GFR (Non-Af Amer) 129.2 ml/min BUN/Creatinine Ratio 16.9 (10-20) Glucose 91 (70-99(Fasting)) mg/dl Lactate (0.4-2.0) mmol/L Calcium 8.1 L (8.6-10.3) mg/dl Magnesium 1.5 L (1.7-2.4) mg/dl Total Bilirubin 0.9 (0.2-1.0) mg/dl AST 16 (13-39) U/L ALT 10 (7-52) U/L Alkaline Phosphatase 49 (34-104) U/L Troponin I High Sens < 2.3 (0-14) pg/ml Total Protein 6.0 (6.0-8.3) gm/dl Albumin 3.3 L (3.4-5.0) gm/dl Globulin 2.7 (2.5-4.0) gm/dl Albumin/Globulin Ratio 1.2 (0.9-2) Lipase 44 (11-82) U/L HCG, Quant mIU/ml Urine Color Dark Yellow Urine Appearance Turbid A (Clear) Urine pH 6.0 (4.5-7.5) Ur Specific [place] 1.020 (1.000-1.030) Urine Protein 2+ H (Negative) Urine Glucose (UA) Negative (Negative) Urine Ketones 1+ H (Negative) Urine Blood 1+ H (Negative) Urine Nitrite Positive A (Negative) Urine Bilirubin Negative (Negative) Urine Urobilinogen Positive H (Negative) Ur Leukocyte Esterase 2+ H (Negative) Urine WBC (Auto) >30 H (0-5) /hpf Urine RBC (Auto) 0-4 (0-4) /hpf U Hyaline Cast (Auto) 1-5 (0-5) /lpf U Epithel Cells (Auto) >30 H (0-5) /lpf Urine Bacteria (Auto) 4+ H (Negative) 03/26/23 03/26/23 Range/Units 00:59 04:17 WBC (4.8-10.8) K/ul RBC (4.20-5.40) M/uL Hgb (12.0-16.0) g/dl Hct (37.0-47.0) % MCV (80.0-100.0) fL MCH (25.0-34.0) pg MCHC (32.0-36.0) g/dL RDW Std Deviation (36.4-46.3) fL RDW Coeff of Karen (11.5-14.5) % Plt Count (130-400) K/uL MPV (9.4-12.4) fL Immature Gran % (Auto) % Neut % (Auto) % Lymph % (Auto) % Carbon % (Auto) % Eos % (Auto) % Baso % (Auto) % Neut # (Auto) (1.40-6.50) K/uL Lymph # (Auto) (1.2-3.4) K/uL Carbon # (Auto) (0.11-0.59) K/uL Eos # (Auto) (0-0.50) K/uL Baso # (Auto) (0-0.2) K/uL Immature Gran # (Auto) (0.01-0.20) K/uL Sodium (136-145) mmol/L Potassium (3.5-5.1) mmol/L Chloride (98-107) mmol/L Carbon Dioxide (21-32) mmol/L Anion Gap (3-11) BUN (6-23) mg/dl Creatinine (0.6-1.2) mg/dl Est Cr Clr Drug Dosing ml/min Est GFR ( Amer) ml/min Est GFR (Non-Af Amer) ml/min BUN/Creatinine Ratio (10-20) Glucose (70-99(Fasting)) mg/dl Lactate 0.6 (0.4-2.0) mmol/L Calcium (8.6-10.3) mg/dl Magnesium (1.7-2.4) mg/dl Total Bilirubin (0.2-1.0) mg/dl AST (13-39) U/L ALT (7-52) U/L Alkaline Phosphatase (34-104) U/L Troponin I High Sens (0-14) pg/ml Total Protein (6.0-8.3) gm/dl Albumin (3.4-5.0) gm/dl Globulin (2.5-4.0) gm/dl Albumin/Globulin Ratio (0.9-2) Lipase (11-82) U/L HCG, Quant 55850 mIU/ml Urine Color Urine Appearance (Clear) Urine pH (4.5-7.5) Ur Specific [place] (1.000-1.030) Urine Protein (Negative) Urine Glucose (UA) (Negative) Urine Ketones (Negative) Urine Blood (Negative) Urine Nitrite (Negative) Urine Bilirubin (Negative) Urine Urobilinogen (Negative) Ur Leukocyte Esterase (Negative) Urine WBC (Auto) (0-5) /hpf Urine RBC (Auto) (0-4) /hpf U Hyaline Cast (Auto) (0-5) /lpf U Epithel Cells (Auto) (0-5) /lpf Urine Bacteria (Auto) (Negative) MDM Narrative Physical exam and history were performed. Nursing notes, EMR, and Medication List were personally reviewed. No social concerns were identified as barriers to patients care. Patient appears to have right-sided abdominal pain, hypotension, and tachycardia bringing her to the ER. She has received 600 mL of fluids prehospital and was given an additional 1500 mL here. IV access was established and labs were obtained. Blood cultures and lactic were performed. Urine was collected and patient was sent to ultrasound for evaluation of her symptoms. Patient's blood work is as above and was reviewed. She does not have a significantly elevated white blood cell count, gross anemia, bandemia, or significant electrolyte imbalance. Transaminases are not diagnostic. Platelet count is preserved. Magnesium was slightly low at 1.5. Urine is quite concerning for infection as she does have nitrates, esterase, bacteria, and white cells. Lactic is negative with cultures pending. Ultrasound was performed and reviewed by myself and radiology. The patient ultrasound is essentially unremarkable. Her right-sided abdominal ultrasound does show hydronephrosis, and shadowing stone or obvious cause of the hydronephrosis. This could be from the , but etiology is unsure. Also there is some concern there may be some more fullness in the kidney, and pyelonephritis certainly is not ruled out. Patient was started on Rocephin here in the ER. Case was discussed with my attending physician, as well as the on-call CORPORATE SECURITY OFFICER team. On reevaluation the patient continues to feel weak and washed out. She is maintaining a blood pressure roughly at 80/50 when laying in the bed. At this time she has not felt well for discharge. Case was discussed with the on- call hospitalist team who agreed to evaluate the patient here in the ER. Please see their dictation for further patient course, plan, and disposition. The chart was completed utilizing [employer] Speech Voice Recognition Software. Grammatical errors, random word insertions, pronoun errors, and incomplete sentences are an occasional consequence of this system due to software limitations, ambient noise, and hardware issues. Any formal questions or concerns about the content, text, or information contained within the body of this dictation should be directly addressed to the provider for clarification. . Impression & Plan UTI (urinary tract infection), , Hydronephrosis Discharge Plan Visit Data Chief Complaint: Abdominal Pain Stated Complaint: ABDOMINAL PAIN/ 20 WKS ED Provider: Leoncio Elmore ED Midlevel Provider: Joshua Treadwell Discharge Problem: UTI (urinary tract infection), , Hydronephrosis Patient Disposition: Admitted As Inpatient Discharge Instructions Interventions: ED Discharge Assessment Last Done: 03/26/23 11:06
[2023-03-27] MEDS: SODIUM CHLORIDE 0.9% 1000ML 1,000 ML IV SCH (04:16)
[2023-03-27] MEDS ORDERED: cefTRIAXone SODIUM 1,000 MG in DEXTROSE 5% 50 ML IV SCH (06:00)
[2023-03-27 08:08] LABS: Hematocrit (blood only) 27.7 % (37.0-47.0); Hemoglobin 9.3 g/dl (12.0-16.0); Mean Corpuscular Hemoglobin 29.7 pg (25.0-34.0); Mean Corpuscular Hgb Conc 33.6 g/dL (32.0-36.0); Mean Corpuscular Volume 88.5 fL (80.0-100.0); Mean Platelet Volume 11.3 fL (9.4-12.4); Platelet Count 152 K/uL (130-400); RDW Coefficient of Variation 15.5 % (11.5-14.5); RDW Standard Deviation 49.8 fL (36.4-46.3); Red Blood Count 3.13 M/uL (4.20-5.40); White Blood Count 6.21 K/ul (4.8-10.8)
[2023-03-27 08:26] LABS: Anion Gap 4 (3-11); BUN Creatinine Ratio 11.6 (10-20); Blood Urea Nitrogen 5 mg/dl (6-23); Calcium 7.9 mg/dl (8.6-10.3); Carbon Dioxide 20 mmol/L (21-32); Chloride 113 mmol/L (98-107); Creatinine Clr Calc Pharmacy 182.6 ml/min; Est GFR (African American) > 150.0 ml/min; Est GFR (Non-African American) 143.4 ml/min; Glucose 79 mg/dl (70-99(Fasting)); Magnesium 1.8 mg/dl (1.7-2.4); Potassium 3.8 mmol/L (3.5-5.1); Sodium 137 mmol/L (136-145)
[2023-03-27] MEDS ORDERED: PRENATAL VITAMIN 1 TAB PO SCH (09:00)
[2023-03-27] MEDS: CALCIUM CARBONATE 500 MG CHEWABLE TAB PO PRN (10:42)
--- NOTE | 2023-03-27 12:33 | Hospitalist Progress Note ---
Date of Service March 27, 2023 Assessment & Plan (1) UTI (urinary tract infection): (2) Hydronephrosis: (3) : Plan: Admit to med/surg w/ tele Patient presenting from home with reports of right flank pain, N/V, chills/rigors. Currently 20 weeks . In the ED, afebrile, borderline hypotensive (however BPs seem to run chronically low), normal lactic acid. UA suggestive of UTI. US shows Right-sided hydroureteronephrosis which could be due to the gravid uterus or ureteric stone. Discussed with urology and POULTRY SCALDER. Given current lack of fever, leukocytosis, elevated lactate, will observe on IV antibiotics. If not improving, consider CT ABD/pelvis. If patient requires urologic intervention, will need to be transferred to tertiary care center. Received IV ceftriaxone in the ED, continue with Follow urine and blood cultures Urine is growing gram-negative bacilli, full culture and sensitivity pending She does not want to stay any longer in the hospital she has 2 small kids at home to take As perfectly asymptomatic Will give oral Keflex to finish the course of 7 days and will discharge home this afternoon Warned that the culture came back something unusual and in that case antibiotic needs to be changed what she may need to come to the ER again Strongly advised to keep appointment with POULTRY SCALDER DVT PROPHYLAXIS SCDs, ambulation encouraged Wants to go home Will be sent home this afternoon Admission and Anticipated Discharge Date Admission Date: March 26, 2023 Subjective 03/27/2023 The patient was seen and examined in medical telemetry unit She has been feeling much better and denies any symptoms Her right-sided abdominal pain is gone and no nausea no vomiting No fever and no chills and denies any urinary symptoms She wants to go home Review of Systems Review of Systems: All systems reviewed and unremarkable except as noted below Physical Exam Physical Exam: Lying in bed comfortably Constitutional: average body habitus; not ill appearing Eyes: PERRL, conjunctivae normal, anicteric sclerae ENMT: external ear and nose normal, oropharynx normal Neck: trachea midline, no thyromegaly Respiratory: no respiratory distress Auscultation: lungs clear to auscultation bilaterally Cardiovascular: Rate/Rhythm: regular rate and regular rhythm; not tachycardic Heart Sounds: normal S1, normal S2 and + murmur Extremities: + edema (Trace edema bilateral) Gastrointestinal (Abdomen): Inspection/Auscultation: + abdomen distended and normal bowel sounds Percussion/Palpation: abdomen soft; abdomen nontender Musculoskeletal: No acute arthritis involving any joint Neurologic: normal touch/pain/proprioception and moves all extremities Lymphatic: no cervical or axillary lymphadenopathy Results & Data Results & Data Vital Signs (Past 12 Hours) Vital Signs Temp Pulse Pulse Resp BP Pulse Ox O2 Del Method 03/27/23 11:02 36.7 C 66 16 95/59 L 100 Room Air 03/27/23 07:00 75 03/27/23 07:17 36.7 C 74 16 96/60 L 98 Room Air 03/27/23 04:06 36.8 C 74 16 87/42 L 97 Room Air Laboratory Results Short CBC 03/27/23 Range/Units 07:50 WBC 6.21 (4.8-10.8) K/ul Hgb 9.3 L (12.0-16.0) g/dl Hct 27.7 L (37.0-47.0) % Plt Count 152 (130-400) K/uL BMP 03/27/23 07:50 Sodium 137 Potassium 3.8 Chloride 113 H Carbon Dioxide 20 L BUN 5 L Creatinine 0.43 L Glucose 79 Calcium 7.9 L Medications Administered Current Inpatient Medications Acetaminophen (Acetaminophen 325 Mg Tab) 650 mg PO Q4H PRN PRN Reason: pain/fever Stop: 04/25/23 11:05 Last Admin: 03/27/23 08:21 Dose: 650 mg Calcium Carbonate (Calcium Carbonate 500 Mg Chewable Tab) 1,000 mg PO Q6H PRN PRN Reason: Indigestion Stop: 04/25/23 21:04 Last Admin: 03/27/23 10:42 Dose: 1,000 mg Ceftriaxone Sodium 1,000 mg/ (Dextrose) 60 mls @ 100 mls/hr IV Q24H JOSHUA; Protocol Stop: 04/01/23 05:59 Last Infusion: 03/27/23 06:44 Dose: Infused Prenat Multivit/Icicle Machine Operator/Iron/Folic Ac ( Vitamin 1 Tab) 1 tab PO QAM JOSHUA Stop: 04/26/23 08:59 Last Admin: 03/27/23 08:20 Dose: 1 tab
--- NOTE | 2023-03-27 13:49 | Urology Progress Note ---
Date of Service March 27, 2023 Assessment & Plan (1) Hydronephrosis: (2) UTI (urinary tract infection): (3) : Plan 22yo/F who is currently 20 weeks admitted with UTI. Abdominal ultrasound yesterday showing right-sided hydronephrosis which could be due to the gravid uterus or ureteral stone. Based on the imaging, we could not adequately assess the presence or absence of a ureteral stone. She was admitted to medicine service for close monitoring with IV antibiotics and supportive care. Overall appears to be improving on antibiotics right-sided pain and urinary symptoms have resolved. Remains afebrile and hemodynamically stable. Labs show no leukocytosis and stable renal function. Urine culture preliminary gram-negative bacilli, blood cultures prelim no growth x 24 hours. On Ceftriaxone. Voiding without issue. Continue antibiotics and tailor as culture data becomes available. Continue supportive care. If patient were to become unstable, may need to consider further imaging to complete workup to assess whether or not she truly has a ureteral stone. Urology will follow peripherally. Please contact us with any further questions. Admission and Anticipated Discharge Date Admission Date: March 26, 2023 Subjective Patient examined at bedside today. Awake, resting in bed on arrival. No acute distress. Denies fevers, chills, nausea, vomiting. Right-sided pain has resolved. Voiding without issue. Denies hematuria or dysuria. Review of Systems Constitutional: as per Subjective / HPI Gastrointestinal: as per Subjective / HPI Genitourinary: as per Subjective / HPI Physical Exam Constitutional: no acute distress Respiratory: normal respiratory effort; no respiratory distress and no labored breathing Skin: No visible rashes or lesions to exposed skin areas Neurologic: awake Psychiatric: A+Ox3, euthymic affect Results & Data Vital Signs (Past 12 Hours) Vital Signs Temp Pulse Pulse Pulse Resp BP Pulse Ox 03/27/23 13:17 36.7 C 73 66 16 95/59 L 100 03/27/23 13:16 36.7 C 73 66 16 95/59 L 100 03/27/23 11:02 36.7 C 66 16 95/59 L 100 03/27/23 07:00 75 03/27/23 07:17 36.7 C 74 16 96/60 L 98 03/27/23 04:06 36.8 C 74 16 87/42 L 97 O2 Del Method 03/27/23 13:17 03/27/23 13:16 03/27/23 11:02 Room Air 03/27/23 07:00 03/27/23 07:17 Room Air 03/27/23 04:06 Room Air PG Care Time/CCT Total # of Minutes Spent Total Time Spent with Patient: Total time spent is greater than 50% in coordination of care (as documented) at patient's floor/unit and/or counseling patient: Coding Level of Care Code 53260 SUB INP/OBS CARE 2/35MIN Diagnoses Hydronephrosis N13.30 UTI (urinary tract infection) N39.0 Z34.90
--- NOTE | 2023-03-27 17:54 | Discharge Summary ---
Date of Service March 27, 2023 Admission HPI Per Admitting Provider 22-year-old female without significant PMH, currently 20 weeks , who presents to the ED for evaluation of right-sided flank pain. 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 Patient reports her symptoms have been present for the past 4 days. Reports right-sided flank pain with associated nausea, vomiting, chills/rigors, and feeling feverish. She did not take her temperature. She also reports associated dysuria and urinary frequency. No hematuria. Denies chest pain and shortness of breath. No lightheadedness, dizziness, diaphoresis, syncopal events. In the ED, US shows right-sided hydroureteronephrosis which could be due to the gravid uterus or ureteric stone. UA suggestive of UTI. Patient is borderline hypotensive however BPs seem to be at baseline. She is afebrile. WBC 8.1K, renal function stable, lactic acid 0.6. Patient was given IV Tylenol, IV ceftriaxone, IVF. Admission Exam Per Admitting Provider Constitutional: WD/WN, vitals as above Eyes: PERRL, conjunctivae normal, anicteric sclerae ENMT: external ear and nose normal, oropharynx normal Respiratory: normal respiratory effort, lungs clear to auscultation Cardiovascular: Rate/Rhythm: regular rate and regular rhythm Vessels: normal peripheral pulses Extremities: no edema Gastrointestinal (Abdomen): normal bowel sounds, soft, nontender, no hepatosplenomegaly Musculoskeletal: no cyanosis or clubbing, extremities motor strength 5/5 Skin: no rashes, warm and dry Neurologic: PERRL, EOMI, accommodation nl, no face palsy, no dysarthria Psychiatric: A+Ox3, euthymic affect Genitourinary: + CVA tenderness (right) Principal Diagnosis UTI, 19 weeks normal Discharge Exam Lying in bed comfortably Constitutional average body habitus; not ill appearing Eyes PERRL, conjunctivae normal, anicteric sclerae ENMT external ear and nose normal, oropharynx normal Neck trachea midline, no thyromegaly Respiratory no respiratory distress Auscultation: lungs clear to auscultation bilaterally Cardiovascular Rate/Rhythm: regular rate and regular rhythm; not tachycardic Heart Sounds: normal S1, normal S2 and + murmur Extremities: + edema (Trace edema bilateral) Gastrointestinal (Abdomen) Inspection/Auscultation: + abdomen distended and normal bowel sounds Percussion/Palpation: abdomen soft; abdomen nontender Neurologic normal touch/pain/proprioception and moves all extremities Lymphatic no cervical or axillary lymphadenopathy Discharge Data Allergies Allergy/AdvReac Type Severity Reaction Status Date / Time No Known Allergies Allergy Mild Verified 03/26/23 01:14 Consultations 03/26/23 07:46 ED Decision to Admit Stat 03/26/23 09:09 Consult Urology Routine 03/26/23 11:06 Consult Gynecology Routine Ordered Studies 03/26/23 01:01 US OB limited Stat US abdomen limited Stat Hospital Course (1) UTI (urinary tract infection): (2) Hydronephrosis: (3) : Admit to med/surg w/ tele Patient presenting from home with reports of right flank pain, N/V, chills/rigors. Currently 20 weeks . In the ED, afebrile, borderline hypotensive (however BPs seem to run chronically low), normal lactic acid. UA suggestive of UTI. US shows Right-sided hydroureteronephrosis which could be due to the gravid uterus or ureteric stone. Discussed with urology and FLAT SCREEN WORKER. Given current lack of fever, leukocytosis, elevated lactate, will observe on IV antibiotics. If not improving, consider CT ABD/pelvis. If patient requires urologic intervention, will need to be transferred to tertiary care center. Received IV ceftriaxone in the ED, continue with Follow urine and blood cultures Urine is growing gram-negative bacilli, full culture and sensitivity pending She does not want to stay any longer in the hospital she has 2 small kids at home to take As perfectly asymptomatic Will give oral Keflex to finish the course of 7 days and will discharge home this afternoon Warned that the culture came back something unusual and in that case antibiotic needs to be changed what she may need to come to the ER again Strongly advised to keep appointment with FLAT SCREEN WORKER DVT PROPHYLAXIS SCDs, ambulation encouraged Wants to go home Will be sent home this afternoon Total Time Total Time Spent Total Time Spent (In Minutes): 35 minutes Discharge Plan Discharge Items Patient Disposition: Home - Self-Care Reason For Visit: UTI Discharge Diagnosis: UTI, 19 weeks normal Condition on Discharge: Fair Activity: Resume your previous activity Non-emergency contact: Primary Care Provider Call non-emergency contact if: you have any medication questions and your symptoms worsen Follow-up/Referrals: Carol Ann Carvajal C.R.N.P. [Primary Care Provider] - (Date & Time 03/29/2023 10:00 AM Provider [facility] Department Radiology [facility] Date & Time 03/29/2023 11:30 AM Provider Mitali Haque PA-C Department Gynecology/Obstetrics [facility] ) Jamil Angel MD [Hospitalist] - (Date & Time 04/01/2023 4:00 PM Provider Jamil Angel MD Department Family Medicine [facility] ) Diet: Regular Addtl Attending Provider Instructions: Please take precautions to avoid falls Finish the course of antibiotic Drink more fluid Take [id number] probiotics Keep appointment with healthcare providers, with FLAT SCREEN WORKER mainly Pending Studies at Discharge: Yes Studies:: Urine culture and sensitivity Stand-Alone Forms: My [facility], Smoking Cessation Medications and DC Order Prescriptions: New cephalexin 500 mg capsule 500 mg PO BID 7 Days Qty: 14 0RF Continued PNV [id number] fumarate-FA [] 28 mg iron- 800 mcg Tablet 1 tab PO DAILY Discharge Orders: Discharge Order (Routine); Ordered 03/27/23 Ordered By: Adrianna Ivey Admission Data Admit Date/Time: 03/26/23 08:29 Attending Provider: Adrianna Ivey Admit Provider: Adrianna Ivey Primary Care Provider: Carol Ann Carvajal Other Providers: Adrianna Ivey ; Aman Barron ; Hilton Cerna Other Interventions: Discharge Summary Assessment (RN) Last Done: 03/27/23 13:17
== END 2023-03-27 14:00 | disposition home or self-care (01) ==
LOC: EDINP 00:43 → ED 00:43 → EDINP 11:06 → 2N 13:36

== ENCOUNTER 2023-08-18 01:17 | Inpatient (IN) ==
--- OUTSIDE RECORDS SUMMARY | 2023-08-18 01:27 | External Medical Summary ---
Author Name Unknown Address Unknown Organization [id number]:[facility] [address] [place] [address] Laboratory Report Ordering Provider Test Date Status GUSTAVO CORRALES 08/08/2023 11:19:23 Final Observation Date Value Abnormality Reference (Units ) Status SYNC LEUKOCYTES IN BLOOD BY AUTOMATED COUNT 08/08/2023 11:19:23 9.62 4.00-10.80 (K/uL) Final Segs 08/08/2023 11:19:23 77.3 Above high normal 40.0-75.0 (%) Final Lymphs % 08/08/2023 11:19:23 15.6 Below low normal 18.0-42.0 (%) Final Monos 08/08/2023 11:19:23 5.9 1.0-11.0 (%) Final Eosinophils 08/08/2023 11:19:23 1.1 0.0-6.0 (%) Final Basos 08/08/2023 11:19:23 0.1 0.0-2.0 (%) Final Absolute Segs 08/08/2023 11:19:23 7.43 1.80-7.70 (K/uL) Final Lymphs, absolute 08/08/2023 11:19:23 1.50 1.00-4.80 (K/ul) Final Monos, Abs 08/08/2023 11:19:23 0.57 0.00-1.10 (K/uL) Final Eos, Abs 08/08/2023 11:19:23 0.11 0.00-0.70 (K/uL) Final Basos, Abs 08/08/2023 11:19:23 0.01 0.00-0.20 (K/uL) Final Performing Location [facility] [address] [place] [address]
--- OUTSIDE RECORDS SUMMARY | 2023-08-18 01:27 | External Medical Summary | Summary of Care ---
Author Name Unknown Organization [facility] Address [address] [place] [address] Phone [phone] Care Team Providers Care Punchboard Filling Machine Operator Name Role Phone Unavailable Primary Care Provider Unavailabl e Reason for Visit * Reason Comments Return Visit Encounter Details Date Type Department Care Team ([facility] st Contact Info) Description 07/29/2023 11:45 AM EST Office Visit Gynecology/Obstetric s [address] [place] [address] Saritha Carvajal CRNP [address] [place] [address] Supervision of other normal , antepartum*; Need for rubella vaccination; Antepartum anemia complicating ; Chlamydia infection affecting in first trimester Allergies No known active allergiesdocumented as of this encounter (statuses as of 07/29/2023) Medications Medication Sig Dispensed Refills Start Date End Date Status Plus 27-1 MG Oral TabletIndications:En counter for supervision of other normal in first trimester Take 1 Tablet by mouth in the morning. 100 Tablet 3 01/21/2023 Active Vitamin B-12 1000 MCG Oral Tablet (Cyanocobalamin) Take 1 Tablet by mouth in the morning. 30 Tablet 5 05/30/2023 Active Breast Pump Dispense double electric breast pump. Dx Z39.1 1 Each 0 07/02/2023 Active documented as of this encounter (statuses as of 07/29/2023) Active Problems Problem Noted Date Diagnosed Date Iron deficiency anemia 06/04/2023 Chlamydia infection complicating 01/22 Overview: Chlamydia at NOB. FARRAH next visit. (14w) Supervision of other normal , antepartu m 01/21/2023 Tobacco use 11/23/2021 Antepartum anemia complicating 021 Tobacco use complicating 03/03/2020 Need for rubella vaccination 10/08/2019 Overview: Rubella not immune. Vaccinate PP Migraine with aura 09/24/2008 Estimated Date of Delivery Comme nts Yes 08/17/2023 Based on last me nstrual period of 11/10/2022 (Exact Date) documented as of this encounter (statuses as of 07/29/2023) Resolved Problems Problem Noted Date Diagnosed Date Resolved Date Choroid plexus cysts, , affecting care of mother, antepartum 04/01/2023 06/27/2023 Overview: R 5-6 cm noted on anatomy scan, low risk Qnatal. Repeat in 3rd trimester. Tobacco smoking complicating 08/04/2021 11/23/2021 Short interval between pregn ancies affecting , antepartum 06/07/2021 11/23/2021 Overview: G1 born 04/2020 Supervision of other normal 02/23/2021 11/23/2021 Overview: Problem Action Taken Date entered Entered by Date resolved Smoking/tobacco abuse Smoking Education 02/23/2021 Shelli Tubbs RN 02/23/2021 nutrition Provided due date letter for pt to attend WIC 02/23/2021 Shelli Tubbs RN 02/23/2021 1st trimester education Reviewed w/pt 02/23/2021 Shelli Tubbs RN 02/23/2021 Problem Action Taken Date entered Entered by Date resolved Headaches Tylenol and fluids encouraged 04/10/2021 Karen Rod RN 04/10/2021 Problem Action Taken Date entered Entered by Date resolved 2nd trimester education reviewed w/pt 06/07/2021 Shelli Tubbs RN 06/07/2021 Problem Action Taken Date entered Entered by Date resolved Current needs or questions Patient denies having any current needs or questions 07/05/2021 Shelli Tubbs RN 07/05/2021 Problem Action Taken Date entered Entered by Date resolved Current needs or questions Patient denies having any current needs or questions 08/04/2021 Shelli Tubbs RN 08/04/2021 Problem Action Taken Date entered Entered by Date resolved 3rd trimester education Reviewed w/pt 08/04/2021 Shelli Tubbs RN 08/04/2021 Problem Action Taken Date entered Entered by Date resolved Current needs or questions Patient denies having any current needs or questions 09/19/2021 Shelli Tubbs RN 09/19/2021 Supervision of normal first 10/01/2019 06/07/2021 Overview: Problem Action Taken Date entered Entered by Date resolved Nausea and vomiting due to Nutrition Review 9 months booklet 10/01/2019 Shelli Tubbs RN 10/01/2019 Smoking/tobacco abuse Smoking Education 10/01/2019 Shelli Tubbs RN 10/01/2019 Nutrition provided due date letter for pt to attend WIC 10/01/2019 Shelli Tubbs RN 10/01/2019 Problem Action Taken Date entered Entered by Date resolved Education Placed referral for Nurse Family partnership 10/01/2019 Shelli Tubbs RN 10/01/2019 Problem Action Taken Date entered Entered by Date resolved Current needs or questions Patient denies having any current needs or questions 12/24/2019 Shelli Tubbs RN 12/24/2019 Problem Action Taken Date entered Entered by Date resolved 2nd trimester education Reviewed w/pt 12/24/2019 Shelli Tubbs RN 12/24/2019 Problem Action Taken Date entered Entered by Date resolved Current needs or questions Patient denies having any current needs or questions 02/18/2020 Shelli Tubbs RN 02/18/2020 Problem Action Taken Date entered Entered by Date resolved Current needs or questions 3rd trimester education completed Patient denies having any current needs or questions 03/03/2020 Karen Rod RN 03/03/2020 Problem Action Taken Date entered Entered by Date resolved Current needs or questions Patient denies having any current needs or questions 03/17/2020 Karen Rod RN 03/16/2020 Problem Action Taken Date entered Entered by Date resolved Current needs or questions Patient denies having any current needs or questions 03/31/2020 Shelli Tubbs RN 03/31/2020 Problem Action Taken Date entered Entered by Date resolved Nutrition Provided due date letter for pt to attend WIC 04/14/2020 Shelli Tubbs RN 04/14/2020 Problem Action Taken Date entered Entered by Date resolved Current needs or questions Signs of labor discussed Breast pump rx faxed. Patient denies having any current needs or questions 04/21/2020 Karen Rod RN 04/21/2020 Problem Action Taken Date entered Entered by Date resolved Current needs or questions Patient denies having any current needs or questions 04/29/2020 Karen Rod RN 04/29/2020 Problem Action Taken Date entered Entered by Date resolved Current needs or questions Patient denies having any current needs or questions 05/06/2020 Shelli Tubbs RN 05/06/2020 Problem Action Taken Date entered Entered by Date resolved Current needs or questions Patient denies having any current needs or questions 05/10/2020 Karen Rod RN 05/10/2020 Menstruation, irregular 07/04/201606/19 Routine child health exam 10/13/2002 documented as of this encounter (statuses as of 07/29/2023) Immunizations Name Administration Dates Next Due HPV Vaccine, 4-Valent 10/18/2014,06/14/2014,03/20 Meningococcal Conjugate Vacc ine (Menactra/Menveo) 04/11/2016,09/14/2011 PPD 02/20/2022 TDAP (age 10 and older)(Boostrix) 07/21/2021 TDAP (age 11 and older)(Adacel) 09/14/2011 Varicella Vaccine (Chicken Pox) 12/31/2007 documented as of this encounter Social History Tobacco Use Types Packs/Day Years Used Date Smoking Tobacco: Every Day Cigarettes 0.3 1 Smokeless Tobacco: Never Comments:7-8 cig/day Alcohol Use Standard Drinks/Week Comments No 0 (1 standard drink = 0.6 oz pur e alcohol) [place] Depression Scale Answer Date Recorded [place] Depression Scale Total 3 05/27/2023 The thought of harming myself has occurred to me . Never 05/27/2023 Estimated Date of Delivery Comme nts Yes 08/17/2023 Based on last me nstrual period of 11/10/2022 (Exact Date) Sex and Gender Information Value Date Recorded Sex Assigned at Female 01/21/2023 3:03 PM EDT Gender Identity Female 01/21/2023 3:03 PM EDT Sexual Orientation Straight 01/21/2023 3: 03 PM EDT Job Start Date Occupation Industry Not on file Not on file Not on file documented as of this encounter Last Filed Vital Signs Vital Sign Reading Time Taken Comments Blood Pressure 118/70 07/29/2023 11:42 AM EST Pulse - - Temperature - - Respiratory Rate - - Oxygen Saturation - - Inhaled Oxygen Concentration - - Weight 63 kg (138 lb 14.2 oz) 07/29/2023 11:42 A M EST Height 162.6 cm (5' 4") 07/29/2023 11:42 AM EST Body Mass Index 23.84 07/29/2023 11:42 AM EST documented in this encounter Progress Notes * Saritha Carvajal CRNP - 07/29/2023 11:49 AM EST 37w2d No concerns. Baby is active. No contractions, bleeding, or LOF. Growth u/s last week, appropriate growth. Vertex position. Undecided about contraception. Planning to breast feed. MANJINDER Velasquez * Josie Gates LPN - 07/29/2023 11:42 AM EST 37w2d Denies any concerns documented in this encounter Plan of Treatment Upcoming Encounters Date Type Department Care Team (Late st Contact Info) Description 08/08/2023 10:45 AM EST [facility] [address] [place] [address] Saritha Carvajal CRNP [address] [place] [address] Health Maintenance Due Date Last Done Comments COVID-19 Vaccine (#1) 03/16/2000 Pneumococcal Vaccine: Pediat rics (0 to 5 Years) and At-Risk Patients (6 to 64 Years) (1 - PCV) 2005 Depression Screening 04/11/2017 04/11/2016 Influenza Vaccine (FLU shot) (#1) 2023 Pap Smear 02/24/2024 02/23/2021 Gonorrhea / Chlamydia Screen 02/28/202407/2023, 01/21/2023, 02/23/2021, Additional history exists DTaP,Tdap,and Td Vaccines (8 - Td or Tdap) 07/21/2031 07/21/2021, 09/14/2011, 08/29/2004, Additional history exists Hepatitis B Completed 08/01/2000, 11/17, 1999 GARDASIL-HPV IMMUNIZATION SERIES Completed 10/18/2014, 06/14/2014, 04/13/2014 MENINGOCOCCAL (MENACTRA/MENVEO) Completed 04/11/2016, 04/11/2016, 09/14/2011, Additional history exists documented as of this encounter Medical Devices Not on filedocumented as of this encounter Visit Diagnoses Diagnosis Supervision of other normal , antepartum- Primary Need for rubella vaccination Need for prophylactic vaccination and inoculation against rubella alone Antepartum anemia complicating Anemia, antepartum Chlamydia infection affecting in first trimester documented in this encounter
--- OUTSIDE RECORDS SUMMARY | 2023-08-18 01:27 | External Medical Summary ---
Author Name Unknown Address Unknown Organization [id number]:[facility] [place] - [address] [place] [address] Laboratory Report Ordering Provider Test Date Status GUSTAVO CORRALES 08/08/2023 11:19:23 Final Observation Date Value Abnormality Reference (Units ) Status Folic Acid 08/08/2023 11:19:23 7.5 >4.5 (ng/ mL) Final Performing Location [facility] - [address] [place] [address]
--- OUTSIDE RECORDS SUMMARY | 2023-08-18 01:27 | External Medical Summary | Summary of Care ---
Author Name Unknown Organization [facility] Address [address] [place] [address] Phone [phone] Care Team Providers Care Medical Art Therapist Name Role Phone Unavailable Primary Care Provider Unavailabl e Reason for Visit * Reason Onset Date Comments Anemia Follow-Up 08/02/2023 Encounter Details Date Type Department Care Team (Late st Contact Info) Description 07/29/2023 9:30 AM [facility] Pharm[facility], [place] [address], [place] [id number] Clinic, Anemia [address] [place] [address] Iron deficiency anemia, unspecified iron deficiency anemia type* Allergies No known active allergiesdocumented as of this encounter (statuses as of 08/02/2023) Medications Medication Sig Dispensed Refills Start Date [...] as of this encounter (statuses as of 08/02/2023) Active Problems Problem Noted Date Diagnosed Date [...] as of this encounter (statuses as of 08/02/2023) Resolved Problems Problem Noted Date Diagnosed Date [...] due date letter for pt to attend [place] 02/23/2021 Shelli Tubbs RN 02/23/2021 1st trimester [...] as of this encounter (statuses as of 08/02/2023) Immunizations Name Administration Dates Next Due HPV [...] drink = 0.6 oz pur e alcohol) [place] Depression Scale Answer Date Recorded [place] Depression Scale Total 3 05/27/2023 The thought [...] on file documented as of this encounter Progress Notes * Jennifer Velez [facility] - 08/02/2023 11:39 AM EST CBCd, ferritin, iron screen, retic panel, B12, FA ordered for 07/26/23. Patient has yet to obtain. Called patient to remind. She will have done as soon as she can. Anemia Clinic will continue to follow. Thank you for allowing us to participate in the care of thispatient. Thanks, Jennifer Velez [facility] Clinical Pharmacist [facility] Anemia Clinic (P: [phone]) 08/02/2023 11:40 AM documented in this encounter Plan of Treatment Upcoming Encounters Date Type Department Care Team (Late st Contact Info) Description 08/06/2023 9:30 AM EST Pharmacy Pharmacy, [place] [address] [place] [address] Clinic, Anemia [address] [place] [address] 08/08/2023 10:45 AM EST [facility] [address] [place] [address] Saritha Carvajal CRNP [address] [place] [address] Health Maintenance Due Date Last Done Comments [...] as of this encounter Visit Diagnoses Diagnosis Iron deficiency anemia, unspecified iron deficiency anemia type- Primary documented in this encounter
--- OUTSIDE RECORDS SUMMARY | 2023-08-18 01:27 | External Medical Summary ---
Author Name Unknown Address Unknown Organization [id number]:[facility] [place] [address] [place] [address] Laboratory Report Ordering Provider Test Date Status GUSTAVO CORRALES 08/08/2023 11:19:23 Final Observation Date Value Abnormality Reference (Units ) Status WBC, Total 08/08/2023 11:19:23 9.62 4.00-10.8 0 (K/uL) Final RBC 08/08/2023 11:19:23 4.14 3.85-5.15 (M/uL) Final Hemoglobin 08/08/2023 11:19:23 12.2 12.0-15.3 (g/dL) Final HCT 08/08/2023 11:19:23 37.2 36.0-45.2 (%) Final MCV 08/08/2023 11:19:23 89.9 81.5-97.5 (fL) Final MCH 08/08/2023 11:19:23 29.5 27.0-34.0 (pg) Final MCHC 08/08/2023 11:19:23 32.8 32.0-36.0 (g/dL) Final RDW 08/08/2023 11:19:23 15.6 11.5-15.5 (%) Final Platelets 08/08/2023 11:19:23 171 140-400 (K /uL) Final MPV 08/08/2023 11:19:23 11.9 6.6-11.1 ( fL) Final Performing Location [facility] [place] [address] [place] [address]
--- OUTSIDE RECORDS SUMMARY | 2023-08-18 01:27 | External Medical Summary | Summary of Care ---
Author Name Unknown Organization [facility] Address [address] [place] [address] Phone [phone] Care Team Providers Care Gas Station Manager Name Role Phone Unavailable Primary Care Provider Unavailabl e Reason for Visit * Reason Onset Date Comments Anemia Follow-Up 08/13/2023 Encounter Details Date Type Department Care Team (Late st Contact Info) Description 08/09/2023 9:[address] [facility] Pharm[facility] Pharmacy, [place] [address] [place], [place] [id number] Clinic, Anemia [address] [place] [address] Iron deficiency anemia, unspecified iron deficiency anemia type* Allergies No known active allergiesdocumented as of this encounter (statuses as of 08/13/2023) Medications Medication Sig Dispensed Refills Start Date [...] as of this encounter (statuses as of 08/13/2023) Active Problems Problem Noted Date Diagnosed Date [...] as of this encounter (statuses as of 08/13/2023) Resolved Problems Problem Noted Date Diagnosed Date [...] as of this encounter (statuses as of 08/13/2023) Immunizations Name Administration Dates Next Due HPV [...] drink = 0.6 oz pur e alcohol) [place] Depression Scale Answer Date Recorded [place] Depression Scale Total 3 05/27/2023 The thought [...] as of this encounter Progress Notes * Jett Hilton, [facility] - 08/13/2023 12:03 PM EST Patient Phone Numbers Review of labs from 08/08/23. Hgb: 12.2 g/dL TSAT: 19 % Ferritin: 96 ng/mL B12: 255 pg/mL FA: 7.5 ng/mL Estimated Date of Delivery: 08/17/23 Hgb is within target range. Iron studies adequate. Plan: No anemia pharmacological intervention at this time. No intervention indicated prior to delivery. Anemia clinic to sign off, thank you for allowing us to participate in the care of this patient. Jett Hilton, PharmD, BCPS Clinical Pharmacist 08/13/2023 12:19 PM Lab Results Component Value Date/Time HGB - [facility] 12.2 08/08/2023 11:19 AM HGB - [facility] 10.9 (L) 05/27/2023 10:31 AM HGB - [facility] 12.5 01/21/2023 03:29 PM HGB - [facility] 11.6 (L) 02/18/2020 02:31 PM HGB - [facility] 13.4 10/01/2019 03:37 PM HGB - [facility] 11.0 (L) 09/15/2002 02:07 PM Lab Results Component Value Date/Time HEMOGLOBIN-OUTSIDE LAB 10.4 (L) 03/27/2023 12:00 AM Results for orders placed or performed in visit on 08/08/23 IRON SCREEN, INCLUDING TIBC Result Value Ref Range Iron 70 33 - 151 ug/dL Iron Binding Capacity 373 250 - 425 ug/dL Transferrin Saturation Percent 19 15 - 55 % Results for orders placed or performed in visit on 05/27/23 IRON SCREEN, INCLUDING TIBC Result Value Ref Range Iron 37 33 - 151 ug/dL Iron Binding Capacity 440 (H) 250 - 425 ug/dL Transferrin Saturation Percent 8 (L) 15 - 55 % Results for orders placed or performed in visit on 07/21/21 IRON SCREEN, INCLUDING TIBC Result Value Ref Range Iron 47 33 - 151 ug/dL Iron Binding Capacity 465 (H) 250 - 425 ug/dL Transferrin Saturation Percent 10 (L) 15 - 55 % No results found for: "TRANSFERRIN SAT %-OUTSIDE LAB" Lab Results Component Value Date/Time FERRITIN - [facility] 96 08/08/2023 11:19 AM FERRITIN - [facility] 9 (L) 05/27/2023 10:31 AM FERRITIN - [facility] 8 (L) 07/21/2021 12:27 PM No results found for: "FERRITIN-OUTSIDE LAB" documented in this encounter Plan of Treatment Upcoming Encounters Date Type Department Care Team (Late st Contact Info) Description 08/15/2023 4:15 PM EST Office Visit Gynecology/Obstetrics [facility] [address] [place] [address] Mitali Haque PA-C [address] [place] [address] Health Maintenance Due Date Last Done Comments COVID-19 Vaccine (#1) 03/16/2000 Pneumococcal Vaccine: Pediat rics (0 to 5 Years) and At-Risk Patients (6 to 64 Years) (1 - PCV) 2005 Depression Screening 04/11/2017 04/11/2016 Influenza Vaccine (FLU shot) (#1) 2023 Pap Smear 02/24/2024 02/23/2021 Gonorrhea / Chlamydia Screen 08/08/2024, 02/27/2023, 01/21/2023, Additional history exists DTaP,Tdap,and Td Vaccines (8 [...]
--- OUTSIDE RECORDS SUMMARY | 2023-08-18 01:27 | External Medical Summary ---
Author Name Unknown Address Unknown Organization [id number]:[facility] - [facility] [address] [facility] [place] [address] Laboratory Report Ordering Provider Test Date Status ELIZABETH RONDON 08/08/2023 11:58:17 Final Observation Date Value Abnormality Reference (Units ) Status Chlamydia trachomatis rRNA [Presence] in Specimen by KARTHIKEYAN with probe detection 08/08/2023 11:58:17 Negative Negative Final No Chlamydia trachomatis det ected by quarry supervisor open pit-mediated nucleic acid amplification. Neisseria gonorrhoeae rRNA [ Presence] in Specimen by KARTHIKEYAN with probe detection 08/08/2023 11:58:17 Negative Negative Final No Neisseria gonorrhoeae det ected by quarry supervisor open pit-mediated nucleic acid amplification. Performing Location [facility] - [address] [place] [address]
--- OUTSIDE RECORDS SUMMARY | 2023-08-18 01:27 | External Medical Summary | Summary of Care ---
Author Name Unknown Organization [facility] Address [address] [place] [address] Phone [phone] Care Team Providers Care Engine Lathe Tender Name Role Phone Unavailable Primary Care Provider Unavailabl e Reason for Visit * Reason Comments Return Visit Encounter Details Date Type Department Care Team ([facility] st Contact Info) Description 08/08/2023 10:45 AM EST Office Visit Gynecology/Obstetric s Ruthann Ortiz [address] [place] [address] Saritha Carvajal CRNP [address] [place] [address] Supervision of other normal , antepartum*; Need for rubella vaccination; Tobacco use affecting , antepartum; Antepartum anemia complicating ; Chlamydia infection affecting in third trimester Allergies No known active allergiesdocumented as of this encounter (statuses as of 08/08/2023) Medications Medication Sig Dispensed Refills Start Date [...] as of this encounter (statuses as of 08/08/2023) Active Problems Problem Noted Date Diagnosed Date [...] as of this encounter (statuses as of 08/08/2023) Resolved Problems Problem Noted Date Diagnosed Date [...] as of this encounter (statuses as of 08/08/2023) Immunizations Name Administration Dates Next Due HPV [...] drink = 0.6 oz pur e alcohol) [place] Depression Scale Answer Date Recorded [place] Depression Scale Total 3 05/27/2023 The thought [...] Sign Reading Time Taken Comments Blood Pressure 98/62 08/08/2023 10:44 AM EST Pulse - - Temperature - - Respiratory Rate - - Oxygen Saturation - - Inhaled Oxygen Concentration - - Weight 64.9 kg (143 lb) 08/08/2023 10:44 AM EST Height 162.6 cm (5' 4") 08/08/2023 10:44 AM EST Body Mass Index 24.55 08/08/2023 10:44 AM EST documented in this encounter Progress Notes * Saritha Carvajal CRNP - 08/08/2023 11:01 AM EST 38w5d Some intermittent contractions, nothing regular. Baby is active. Discussed FKC. No bleeding or LOF. +chlamydia at NOB, repeated today. IOL scheduled for 08/20. On Air Director Documentation Provider requested associate professor of biology. Name of associate professor of biology: MANJINDER Rao * Samara Villarreal LPN - 08/08/2023 10:46 AM EST 38w5d Was having some chest pain the other day- resolved and has not occurred again. Would like membrane sweep/cervical check. IOL scheduled 08/20/23. documented in this encounter Plan of Treatment Upcoming Encounters Date Type Department Care Team (Late st Contact Info) Description 08/15/2023 4:15 PM EST Office Visit Gynecology/Obstetrics [address] [place] [address] Mitali Haque PA-C [address] [place] [address] Pending Results Name Type Priority Associated Diagnoses Date /Time CHLAMYDIA TRACHOMATIS AND NEISSERIA GONORRHOEAE, AMPLIFIED PROBE Lab Routine Chlamydia infection affecting in third trimester 08/08/2023 11:58 AM EST Health Maintenance Due Date Last Done Comments [...] prophylactic vaccination and inoculation against rubella alone Tobacco use affecting , antepartum Antepartum anemia complicating Anemia, antepartum Chlamydia infection affecting in third trimester documented in this encounter
--- OUTSIDE RECORDS SUMMARY | 2023-08-18 01:27 | External Medical Summary | Summary of Care ---
Author Name Unknown Organization [facility] Address [address] [place] [address] Phone [phone] Care Team Providers Care Geological Survey Field Assistant Name Role Phone Unavailable Primary Care Provider Unavailabl e Reason for Visit * Reason Onset Date Comments Anemia Follow-Up 08/08/2023 Encounter Details Date Type Department Care Team (Late st Contact Info) Description 08/06/2023 9:30 AM [facility], [place] [address] [place], [place] [phone] Clinic, Anemia [address] [place] [address] Iron deficiency anemia, unspecified iron deficiency anemia [...] drink = 0.6 oz pur e alcohol) [place] Depression Scale Answer Date Recorded [place] Depression Scale Total 3 05/27/2023 The thought [...] as of this encounter Progress Notes * Payton Huitron RPh - 08/08/2023 1:44 PM EST Labs in process. Will follow-up with results. Anemia Clinic will continue to follow. Thank you for allowing us to participate in the care of thispatient. Payton Huitron, PharmD, [facility] Clinical Pharmacist [facility] (P: [phone]) 08/08/2023 1:44 PM documented in this encounter Plan of Treatment Upcoming Encounters Date Type Department Care Team (Late st Contact Info) Description 08/09/2023 9:30 AM [facility] [address] [place] [address] Clinic, Anemia [facility] [address] 08/15/2023 4:15 PM EST Office Visit Gynecology/Obstetrics [facility] [address] [place] [address] Mitali Haque PA-C [address] [place] [phone] Health Maintenance Due Date Last Done Comments [...]
--- OUTSIDE RECORDS SUMMARY | 2023-08-18 01:27 | External Medical Summary | Summary of Care ---
Author Name Unknown Organization [facility] Address [address] [place] [address] Phone [phone] Care Team Providers Care Battery Charger Name Role Phone Unavailable Primary Care Provider Unavailabl e Reason for Visit * Reason Comments Return Visit Encounter Details Date Type Department Care Team ([facility] st Contact Info) Description 08/08/2023 10:45 AM EST Office Visit Gynecology/Obstetric s Ruthann Ortiz [address] [place] [address] Saritha Carvajal CRNP [address] [place] [address] Supervision of other normal , antepartum*; Need [...] drink = 0.6 oz pur e alcohol) [place] Depression Scale Answer Date Recorded [place] Depression Scale Total 3 05/27/2023 The thought [...] NOB, repeated today. IOL scheduled for 08/20. Complaint Adjuster Documentation Provider requested auto bumper mechanic. Name of auto bumper mechanic: MANJINDER Rao * Samara Villarreal LPN - 08/08/2023 10:46 AM EST 38w5d Was having some chest pain the other day- resolved and has not occurred again. Would like membrane sweep/cervical check. IOL scheduled 08/20/23. documented in this encounter Plan of Treatment Upcoming Encounters Date Type Department Care Team (Late st Contact Info) Description 08/08/2023 11:50 AM EST Laboratory Laboratory, [address] [place] [address] Ortiz, Alessandra Vogel [address] [place] [address] Arrived 08/15/2023 4:15 PM EST Office Visit Gynecology/Obstetrics Ruthann Ortiz [address] [place] [address] Mitali Haque PA-C [address] [place] [address] Scheduled Orders Name Type Priority Associated Diagnoses Orde r Schedule CHLAMYDIA TRACHOMATIS AND NEISSERIA GONORRHOEAE, AMPLIFIED PROBE Lab Routine Chlamydia infection affecting in third trimester Ordered: 08/08/2023 Health Maintenance Due Date Last Done Comments [...]
--- OUTSIDE RECORDS SUMMARY | 2023-08-18 01:27 | External Medical Summary ---
Author Name Unknown Address Unknown Organization K01:[facility] [place] [address] [place] [address] Laboratory Report Ordering Provider Test Date Status GUSTAVO CORRALES 08/08/2023 11:19:23 Final Observation Date Value Abnormality Reference (Units ) Status Ferritin 08/08/2023 11:19:23 96 13-150 (ng /mL) Final Performing Location [facility] [place] [address] [place] [address]
--- OUTSIDE RECORDS SUMMARY | 2023-08-18 01:27 | External Medical Summary ---
Author Name Unknown Address Unknown Organization K01:[facility] [place] [facility] [place] [address] Laboratory Report Ordering Provider Test Date Status GUSTAVO CORRALES 08/08/2023 11:19:23 Final Observation Date Value Abnormality Reference (Units ) Status Retic, % (auto) 08/08/2023 11:19:23 2.30 Above high normal 0.80-1.90 (%) Final Reticulocytes, Absolute 08/08/2023 11:19:23 95.5 31.3-100.1 (K/uL) Final Reticulocyte fraction, immature 08/08/2023 11:19:23 20.1 2.5-20.6 (%) Final Reticulocyte HGB 08/08/2023 11:19:23 33.7 29.7-37.4 (pg) Final Performing Location [facility] [place] - [facility] [place] [address]
--- OUTSIDE RECORDS SUMMARY | 2023-08-18 01:27 | External Medical Summary | Summary of Care ---
Author Name Unknown Organization [facility] Address [address] [place] [address] Phone [phone] Care Team Providers Care Coal Briquette Machine Operator Name Role Phone Unavailable Primary Care Provider Unavailabl e Reason for Visit * Reason Comments Outpatient Testing Encounter Details Date Type Department Care Team ([facility] st Contact Info) Description 08/08/2023 11:50 AM EST Laboratory Laboratory, [facility] [address] [place] [address] [facility] [address] [place] [address] Iron deficiency anemia, unspecified iron deficiency anemia type Allergies No known active allergiesdocumented as of [...] any current needs or questions 03/03/2020 Karen oRd RN 03/03/2020 Problem Action Taken Date entered [...] drink = 0.6 oz pur e alcohol) [place] Depression Scale Answer Date Recorded [place] Depression Scale Total 3 05/27/2023 The thought [...] on file documented as of this encounter Plan of Treatment Upcoming Encounters Date Type Department Care Team (Late st Contact Info) Description 08/15/2023 4:15 PM EST [facility] [address] [place] [address] Mitali Haque PA-C [address] [place] [address] Pending Results Name Type Priority Associated Diagnoses Date /Time CBC WITH WBC DIFFERENTIAL Lab Routine Iron deficiency anemia, unspecified iron deficiency anemia type 08/08/2023 11:19 AM EST IRON SCREEN, INCLUDING TIBC Lab Routine Iron deficiency anemia, unspecified iron deficiency anemia type 08/08/2023 11:19 AM EST FERRITIN Lab Routine Iron deficiency anemia, unspecified iron deficiency anemia type 08/08/2023 11:19 AM EST RETICULOCYTE PANEL Lab Routine Iron deficiency anemia, unspecified iron deficiency anemia type 08/08/2023 11:19 AM EST FOLIC ACID Lab Routine Iron deficiency anemia, unspecified iron deficiency anemia type 08/08/2023 11:19 AM EST VITAMIN B12 Lab Routine Iron deficiency anemia, unspecified iron deficiency anemia type 08/08/2023 11:19 AM EST CBC Lab Routine Iron deficiency anemia, unspecified iron deficiency anemia type 08/08/2023 11:19 AM EST DIFFERENTIAL, AUTOMATED Lab Routine Iron deficiency anemia, unspecified iron deficiency anemia type 08/08/2023 11:19 AM EST Health Maintenance Due Date Last [...] Iron deficiency anemia, unspecified iron deficiency anemia type documented in this encounter
--- OUTSIDE RECORDS SUMMARY | 2023-08-18 01:27 | External Medical Summary | Summary of Care ---
Author Name Unknown Organization [facility] Address [address] [place] [address] Phone [phone] Care Team Providers Care Shaper Machine Hand Name Role Phone Unavailable Primary Care Provider Unavailabl e Encounter Details Date Type Department Care Team (Late st Contact Info) Description 08/15/2023 7:45 AM EST Office Visit Gynecology/Obstetric s Ruthann Ortiz [address] [place] [address] Mitali Haque PA-C [address] [place] [address] Supervision of other normal , antepartum*; Need for rubella vaccination; complicated by tobacco use in third trimester; Antepartum anemia complicating ; Chlamydia infection affecting in first trimester Allergies No known active allergiesdocumented as of this encounter (statuses as of 08/15/2023) Medications Medication Sig Dispensed Refills Start Date [...] as of this encounter (statuses as of 08/15/2023) Active Problems Problem Noted Date Diagnosed Date [...] as of this encounter (statuses as of 08/15/2023) Resolved Problems Problem Noted Date Diagnosed Date [...] as of this encounter (statuses as of 08/15/2023) Immunizations Name Administration Dates Next Due HPV [...] drink = 0.6 oz pur e alcohol) [place] Depression Scale Answer Date Recorded [place] Depression Scale Total 3 05/27/2023 The thought [...] Sign Reading Time Taken Comments Blood Pressure 100/64 08/15/2023 8:07 AM EST Pulse - - Temperature - - Respiratory Rate - - Oxygen Saturation - - Inhaled Oxygen Concentration - - Weight 65.3 kg (144 lb) 08/15/2023 8:07 AM EST Height 162.6 cm (5' 4") 08/15/2023 8:07 AM EST Body Mass Index 24.72 08/15/2023 8:07 AM EST documented in this encounter Progress Notes * Mitali Haque PA-C - 08/15/2023 8:14 AM EST 39w5d Intermittent contractions, no timing or regularity, not severe. Denies bleeding, LOF. Pos FM. Requesting membrane sweep today. GBS negative. Switch Tender Documentation Provider requested switchgear repairer. Name of switchgear repairer: TANISHA Kurtz Labor precautions reviewed. Has number to call, advised call ahead. RTC in 1 week Mitali Haque PA-C * Josie Gates LPN - 08/15/2023 8:07 AM EST 39w5d documented in this encounter Plan of Treatment Health Maintenance Due Date Last Done Comments [...] prophylactic vaccination and inoculation against rubella alone complicated by tobacco use in third trimester Antepartum anemia complicating Anemia, antepartum Chlamydia infection affecting in first trimester documented in this encounter
--- OUTSIDE RECORDS SUMMARY | 2023-08-18 01:27 | External Medical Summary ---
Author Name Unknown Address Unknown Organization K01:[facility] [place] [address] [place] [address] Laboratory Report Ordering Provider Test Date Status GUSTAVO CORRALES 08/08/2023 11:19:23 Final Observation Date Value Abnormality Reference (Units ) Status Iron 08/08/2023 11:19:23 70 33-151 (ug /dL) Final Iron-binding capacity 08/08/2023 11:19:23 373 250-425 (ug/dL) Final Transferrin Sat % 08/08/2023 11:19:23 19 15 -55 (%) Final Performing Location [facility] [place] [address] [place] [address]
--- OUTSIDE RECORDS SUMMARY | 2023-08-18 01:27 | External Medical Summary ---
Author Name Unknown Address Unknown Organization K01:[facility] [place] [address] [place] [address] Laboratory Report Ordering Provider Test Date Status GUSTAVO CORRALES 08/08/2023 11:19:23 Final Observation Date Value Abnormality Reference (Units ) Status Vitamin B12 08/08/2023 11:19:23 720 193-0950 (pg/mL) Final Performing Location [facility] [place] [address] [place] [address]
--- OUTSIDE RECORDS SUMMARY | 2023-08-18 01:28 | External Medical Summary | Summary of Care ---
Author Name Unknown Organization [facility] Address [address] [place] [address] Phone [phone] Care Team Providers Care Dietary Aide Name Role Phone Unavailable Primary Care Provider Unavailabl e Reason for Visit * Reason Comments Return Visit Encounter Details Date Type Department Care Team (Late st Contact Info) Description 06/27/2023 9:00 AM EST Office Visit Gynecology/Obstetric s Ruthann Ortiz [address] [place] [address] Saritha Carvajal CRNP [address] [place] [address] Supervision of other normal , antepartum*; Need for rubella vaccination; Tobacco use affecting , antepartum; Antepartum anemia complicating ; Chlamydia infection affecting in first trimester Allergies No known active allergiesdocumented as of this encounter (statuses as of 06/27/2023) Medications Medication Sig Dispensed Refills Start Date End Date Status Plus 27-1 MG Oral TabletIndications:En counter for supervision of other normal in first trimester Take 1 Tablet by mouth in the morning. 100 Tablet 3 01/21/2023 Active Cephalexin 500 MG Oral Capsule (Keflex) 1 Capsule in the morning and 1 Capsule in the evening. 0 03/27/2023 Active Breast Pump Dispense double electric breast pump. Dx Z39.1 1 Each 9 05/28/2023 Active Vitamin B-12 1000 MCG Oral Tablet (Cyanocobalamin) Take 1 Tablet by mouth in the morning. 30 Tablet 5 05/30/2023 Active documented as of this encounter (statuses as of 06/27/2023) Active Problems Problem Noted Date Diagnosed Date [...] as of this encounter (statuses as of 06/27/2023) Resolved Problems Problem Noted Date Diagnosed Date [...] date letter for pt to attend [place] 04/14/2020 Shelli Tubbs RN 04/14/2020 Problem Action [...] as of this encounter (statuses as of 06/27/2023) Immunizations Name Administration Dates Next Due HPV [...] drink = 0.6 oz pur e alcohol) [place] Depression Scale Answer Date Recorded [place] Depression Scale Total 3 05/27/2023 The thought [...] Sign Reading Time Taken Comments Blood Pressure 102/60 06/27/2023 9:15 AM EST Pulse - - Temperature - - Respiratory Rate - - Oxygen Saturation - - Inhaled Oxygen Concentration - - Weight 62.6 kg (138 lb) 06/27/2023 9:15 AM EST Height 162.6 cm (5' 4") 06/27/2023 9:15 AM EST Body Mass Index 23.69 06/27/2023 9:15 AM EST documented in this encounter Progress Notes * Saritha Carvajal CRNP - 06/27/2023 9:36 AM EST 32w5d Complaints: none Feeling well overall. Good FM. No contractions, bleeding, or LOF. MANJINDER Velasquez * Emma Holguin LPN - 06/27/2023 9:18 AM EST 32w5d Pt denies any concerns. documented in this encounter Plan of Treatment Upcoming Encounters Date Type Department Care Team (Late st Contact Info) Description 07/08/2023 9:30 AM EST Office Visit Gynecology/Obstetrics [address] [place] [phone] Saritha Carvajal CRNP [address] [facility] [place] [address] 07/29/2023 9:30 AM EST Pharmacy Pharmacy, [place] [address] [place] [address] Clinic, [facility] [address] [place] [address] Health Maintenance Due Date Last Done Comments [...] Completed 10/18/2014, 06/14/2014, 04/13/2014 MENINGOCOCCAL (MENACTRA/MENVEO) Completed 6, 09/14/2011 documented as of this encounter Medical Devices [...]
--- OUTSIDE RECORDS SUMMARY | 2023-08-18 01:28 | External Medical Summary | Summary of Care ---
Author Name Unknown Organization [facility] Address [address] [place] [address] Phone [phone] Care Team Providers Care Airline Captain Name Role Phone Unavailable Primary Care Provider Unavailabl e Reason for Visit * Reason Comments Infusion Venofer 2/3 Encounter Details Date Type Department Care Team (Latest Contact Info) Description 06/17/2023 10:00 AM EDT Hem/Onc Treatment Hematology/Oncology Treatment, [address] [address] [place], Chair 9 Hem Onc Scene [address] [place] [address] Iron deficiency anemia, unspecified iron deficiency anemia type* Allergies No known active allergiesdocumented as of this encounter (statuses as of 06/17/2023) Medications Medication Sig Dispensed Refills Start Date [...] as of this encounter (statuses as of 06/17/2023) Active Problems Problem Noted Date Diagnosed Date Iron deficiency anemia 06/04/2023 Choroid plexus cysts, , affecting care of mother, antepartum 04/01/2023 Overview: R 5-6 cm noted on anatomy scan, low risk Qnatal. Repeat in 3rd trimester. Chlamydia infection complicating 01/22 Overview: Chlamydia at [...] as of this encounter (statuses as of 06/17/2023) Resolved Problems Problem Noted Date Diagnosed Date Resolved Date Tobacco smoking complicating 08/04/2021 11/23/2021 Short interval between pregn ancies affecting , antepartum 06/07/2021 11/23/2021 Overview: G1 born 04/2021 Supervision of other normal 02/23/2021 11/23/2021 Overview: Problem Action Taken Date entered Entered by Date resolved Smoking/tobacco abuse Smoking Education 02/23/2021 Shelli Tbubs RN 02/23/2021 nutrition Provided due date letter [...] any current needs or questions 04/29/2020 Karen oRd RN 04/29/2020 Problem Action Taken Date entered [...] as of this encounter (statuses as of 06/17/2023) Immunizations Name Administration Dates Next Due HPV [...] drink = 0.6 oz pur e alcohol) Hanna Depression Scale Answer Date Recorded Hanna Depression Scale Total 3 05/27/2023 The thought [...] Sign Reading Time Taken Comments Blood Pressure 112/73 06/17/2023 10:39 AM EDT Pulse 84 06/17/2023 10:39 AM EDT Temperature 36.9 C (98.4 F) 06/17/2023 10:39 AM E DT Respiratory Rate 18 06/17/2023 10:39 AM EDT Oxygen Saturation 98% 06/17/2023 10:39 AM EDT Inhaled Oxygen Concentration - - Weight 61.2 kg (135 lb) 06/17/2023 10:39 AM EDT Height - - Body Mass Index 23.17 06/11/2023 8:49 AM EDT documented in this encounter Nursing Notes * Karen Cody LPN - 06/17/2023 1:13 PM EDT 1155: Pt tolerated Venofer infusion well. PIV removed intact. Pt to return in one week. Discharged in stable condition. * Karen Cody LPN - 06/17/2023 10:40 AM EDT 1018: Chair 10. Pt arrived for Venofer 2/3 infusion. PIV in LFA. Pt tolerated well. VSS. No complaints at this time. documented in this encounter Plan of Treatment Upcoming Encounters Date Type Department Care Team (Late st Contact Info) Description 06/24/2023 10:30 AM EST Hem/Onc Treatment Hematology/Oncology Treatment, [place] [address] [place] [address] Viola, Chair 11 Hem Onc Scenery [address] [place] [address] 06/26/2023 2:00 PM EST Pharmacy Pharmacy, [place] [address] [place] [address] Clinic, Anemia [address] [place] [address] 06/27/2023 9:00 AM EST Office Visit Gynecology[facility] [address] [facility] [place] [address] Saritha Carvajal CRNP [address] [facility] [place] [address] Health Maintenance Due Date Last Done Comments [...] anemia type- Primary documented in this encounter Administered Medications Active Administered Medications - up to 3 most recent administrations Medication Order MAR Action Action Date Dose Rate Site diphenhydrAMINE (Benadryl) inj 50 mg 50 mg, IV Push, ONCE PRN Other, Hypersensitivity Reaction, Starting on Sat06/17/23 at 1020, Until Sat06/18/23 at 1019, For 24 hours EPINEPHrine 1 MG/ML inj 0.3 mg 0.3 mg, Intramuscular, ONCE PRN Other, Hypersensitivity Reaction or Anaphylaxis, Starting on Sat06/17/23 at 1020, Until Sat06/18/23 at 1019, For 24 hours hEParin 100 UNIT/ML Lock Flush inj 500 Units 500 Units (5 mL), IV Lock, PRN Other, IV Flush, Starting on Sat06/17/23 at 1020, Until Sat06/18/23 at 1019, For 24 hours, Do not flush if lock, PICC, or central line not in place; IV infusing or unable to flush. Hydrocortisone Sod Suc (PF) (Solu-Cortef) inj 100 mg 100 mg, IV Push, ONCE PRN Other, Hypersensitivity Reaction, Starting on Sat06/17/23 at 1020, Until Sat06/18/23 at 1019, For 24 hours NSS infusion 500 mL, Intravenous, at 50 mL/hr, CONTINUOUS, Starting on Sat06/17/23 at 1130, Until Sat06/17/23 at 2129 Start Infusion 06/17/2023 10:20 AM EDT 500 mL 50 mL/hr oxygen GAS Inhalation, OXYGEN, First dose on Sat06/17/23 at 1100, Until Discontinued, Device/Managed by: Low Flow Device, Goal SPO2 (%): 91-95, Starting Device: Nasal Cannula, Inital Flow Rate (LPM): 2, Lowest Support: Nasal Cannula: Flow 0-6 LPM. Titrate up/down by 1 LPM., Higher Support: Non-Rebreather (NRB) Mask: Minimum of 10 LPM. Titrate to maintain bag inflation., Titration Interval: Q2 minutes and as needed., Notify Provider: For sudden DECREASE in resting SPO2 to less than 85% and when escalating delivery device. sodium chloride 0.9 % flush central line 10 mL 10 mL, IV Push, PRN Other, IV Flush, Starting on Sat06/17/23 at 1020, Until Sat06/18/23 at 1019, For 24 hours, Do not flush if lock, PICC, or central line not in place; IV infusing or unable to flush. Inactive Administered Medications - up to 3 most recent administrations Medication Order MAR Action Action Date Dose Rate Site Iron Sucrose (Venofer) 300 mg in NSS 250 mL ivpb 300 mg, IV Piggyback, ONCE, 1 dose, On Sat06/17/23 at 1200, Administer over 90 Minutes Start Infusion 06/17/2023 10:20 AM EDT 300 mg 166.67 mL/hr documented in this encounter
--- OUTSIDE RECORDS SUMMARY | 2023-08-18 01:28 | External Medical Summary | Summary of Care ---
Author Name Unknown Organization [facility] Address [address] [place] [address] Phone [phone] Care Team Providers Care Head Batcher Name Role Phone Unavailable Primary Care Provider Unavailabl e Encounter Details Date Type Department Care Team (Late st Contact Info) Description 07/01/2023 Telephone Gynecology/Obstetrics Ruthann Ortiz [address] [place] [address] Alcon Carvajal CRNP [address] [place] [address] Allergies No known active allergiesdocumented as of this encounter (statuses as of 07/02/2023) Medications Medication Sig Dispensed Refills Start Date End Date Status Plus 27-1 MG Oral TabletIndications :Encounter for supervision of other normal in first trimester Take 1 Tablet by mouth in the morning. 100 Tablet 3 01/21/2023 Active Cephalexin 500 MG Oral Capsule (Keflex) 1 Capsule in the morning and 1 Capsule in the evening. 0 03/27/2023 Active Vitamin B-12 1000 MCG Oral Tablet (Cyanocobalamin) Take 1 Tablet by mouth in the morning. 30 Tablet 5 05/30/2023 Active Breast Pump Dispense double electric breast pump. Dx Z39.1 1 Each 0 07/02/2023 Active Breast Pump Dispense double electric breast pump. Dx Z39.1 1 Each 9 05/28/2023 07/02/2023 Discontinued (Refill) documented as of this encounter (statuses as of 07/02/2023) Active Problems Problem Noted Date Diagnosed Date [...] as of this encounter (statuses as of 07/02/2023) Resolved Problems Problem Noted Date Diagnosed Date [...] as of this encounter (statuses as of 07/02/2023) Immunizations Name Administration Dates Next Due DTaP Dipth/Tet/Acell Pertussis (Infanrix), Peds 08/29/2004,05/14/2001,05/30/2000,03/05,1999 HIB Hep B - HIB Hepatitis B (Comvax) 1999 HPV Vaccine, 4-Valent 10/18/2014,06/14/2014,03/20 Haemophilius B (HIB), unspecified 09/18/2000,07/2000,03/05/2000 Hepatitis B Vaccine 08/01/2000,1999 IPV - Polio Virus Vaccine (Inact) 2004,05/14/2001,03/05/2000,11/27 MMR - Measles/Mumps/Rubella Vaccine 08/29/2004,0 09/18/2000 Meningococcal Conjugate Vacc ine (Menactra/Menveo) 04/11/2016,09/14/2011 PPD 02/20/2022 Pneumococcal Conjugate Vacci ne, 7 Valent 08/01/2000,05/30/2000,03/05/2000 TDAP (age 10 and older)(Boostrix) 07/21/2021 TDAP (age 11 and older)(Adacel) 09/14/2011 Varicella Vaccine (Chicken Pox) 12/31/2007,09/18 documented as of this encounter Social History Tobacco Use Types Packs/Day Years Used Date Smoking Tobacco: Every Day Cigarettes 0.3 1 Smokeless Tobacco: Never Comments:7-8 cig/day Alcohol Use Standard Drinks/Week Comments No 0 (1 standard drink = 0.6 oz pur e alcohol) Norman Depression Scale Answer Date Recorded [place] Depression Scale Total 3 05/27/2023 The thought [...] on file documented as of this encounter Miscellaneous Notes * Telephone Encounter - Tessie Colin LPN - 07/02/2023 8:23 AM EST Faxed to provided number. * Addendum Note - Alcon Carvajal CRNP - 07/02/2023 8:23 AM ESTAddended by: ALCON CARVAJAL on: 07/02/2023 08:23 AM Modules accepted: Orders * Telephone Encounter - Alcon Carvajal CRNP - 07/02/2023 8:22 AM EST Signed. * Telephone Encounter - Tessie Colin LPN - 07/01/2023 2:06 PM EST Pt calling in stating that she got notified from her breast pump company that the script is invalidbecause it does not have a physical signature on it. Will have Alcon review and sign. Fax to [phone]. documented in this encounter Plan of Treatment Upcoming Encounters Date Type Department Care Team (Late st Contact Info) Description 07/08/2023 9:30 AM EST Office Visit Gynecology/Obstetrics [address] [place] [address] Alcon Carvajal CRNP [address] [facility] [address] 07/29/2023 9:30 AM EST Pharmacy Pharmacy, [address] [address] [facility] [address] [place] [address] Health Maintenance Due Date Last Done Comments [...]
--- OUTSIDE RECORDS SUMMARY | 2023-08-18 01:28 | External Medical Summary | Summary of Care ---
Author Name Unknown Organization [facility] Address [address] [place] [address] Phone [phone] Care Team Providers Care Medical Laboratory Technical Officer Name Role Phone Unavailable Primary Care Provider Unavailabl e Reason for Visit * Reason Comments Infusion Venofer 10/19 Encounter Details Date Type Department Care Team (Latest Contact Info) Description 06/24/2023 10:30 AM EST Hem/Onc Treatment Hematology/Oncology Treatment, [address] [address] [place], Chair 11 Hem Onc [facility] [address] [place] [address] Iron deficiency anemia, unspecified iron deficiency anemia type* Allergies No known active allergiesdocumented as of this encounter (statuses as of 06/24/2023) Medications Medication Sig Dispensed Refills Start Date [...] as of this encounter (statuses as of 06/24/2023) Active Problems Problem Noted Date Diagnosed Date [...] as of this encounter (statuses as of 06/24/2023) Resolved Problems Problem Noted Date Diagnosed Date [...] as of this encounter (statuses as of 06/24/2023) Immunizations Name Administration Dates Next Due HPV [...] drink = 0.6 oz pur e alcohol) Isabel Depression Scale Answer Date Recorded Isabel Depression Scale Total 3 05/27/2023 The thought [...] Sign Reading Time Taken Comments Blood Pressure 110/69 06/24/2023 11:08 AM EST Pulse 82 06/24/2023 11:08 AM EST Temperature 36.4 C (97.5 F) 06/24/2023 11:[address] Respiratory Rate 18 06/24/2023 11:08 AM EST Oxygen Saturation 98% 06/24/2023 11:08 AM EST Inhaled Oxygen Concentration - - Weight - - Height - - Body Mass Index - - documented in this encounter Nursing Notes * Karen Cody LPN - 06/24/2023 11:08 AM EST 1040: Chair 5. Pt arrived for Venofer 3/3 infusion. PIV in RFA. Pt tolerated well. VSS. No complaints at this time. 1220: Pt tolerated Venofer infusion well. PIV removed intact. Pt to follow up with MD. Discharged in stable condition. documented in this encounter Plan of Treatment Upcoming Encounters Date Type Department Care Team (Late st Contact Info) Description 06/27/2023 9:00 AM EST Office Visit Gynecology/Obstetrics [facility] [address] [place] [address] Saritha Carvajal CRNP [address] [place] [address] 06/28/2023 2:00 PM EST Pharmacy Pharmacy, [place] [address] [place] [address] Clinic, [facility] [address] [place] [address] Health Maintenance Due Date Last Done Comments [...] Completed 10/18/2014, 06/14/2014, 04/13/2014 MENINGOCOCCAL (MENACTRA/MENVEO) Completed , 09/14/2011 documented as of this encounter Medical [...] ONCE PRN Other, Hypersensitivity Reaction, Starting on Sat06/24/23 at 1045, Until Sat06/25/23 at 1044, For 24 hours EPINEPHrine 1 MG/ML inj 0.3 mg 0.3 mg, Intramuscular, ONCE PRN Other, Hypersensitivity Reaction or Anaphylaxis, Starting on Sat06/24/23 at 1045, Until Sat06/25/23 at 1044, For 24 hours hEParin 100 UNIT/ML Lock Flush inj 500 Units 500 Units (5 mL), IV Lock, PRN Other, IV Flush, Starting on Sat06/24/23 at 1045, Until Tu06/25/23 at 1044, For 24 hours, Do not flush if lock, PICC, or central line not in place; IV infusing or unable to flush. Hydrocortisone Sod Suc (PF) (Solu-Cortef) inj 100 mg 100 mg, IV Push, ONCE PRN Other, Hypersensitivity Reaction, Starting on Sat06/24/23 at 1045, Until Sat06/25/23 at 1044, For 24 hours NSS infusion 500 mL, Intravenous, at 50 mL/hr, CONTINUOUS, Starting on Sat06/24/23 at 1145, Until Sat06/24/23 at 2144 Start Infusion 06/24/2023 10:45 AM EST 500 mL 50 mL/hr oxygen GAS Inhalation, OXYGEN, First dose on Sat06/24/23 at 1130, Until Discontinued, Device/Managed by: Low Flow Device, [...] Push, PRN Other, IV Flush, Starting on Sat06/24/23 at 1045, Until Sat06/25/23 at 1044, For 24 hours, Do not flush if lock, PICC, or central line not in place; IV infusing or unable to flush. Inactive Administered Medications - up to 3 most recent administrations Medication Order MAR Action Action Date Dose Rate Site Iron Sucrose (Venofer) 300 mg in NSS 250 mL ivpb 300 mg, IV Piggyback, ONCE, 1 dose, On Sat06/24/23 at 1215, Administer over 90 Minutes Start Infusion 06/24/2023 10:45 AM EST 300 mg 166.67 mL/hr documented in this encounter
--- OUTSIDE RECORDS SUMMARY | 2023-08-18 01:28 | External Medical Summary | Summary of Care ---
Author Name Unknown Organization [facility] Address [address] [place] [address] Phone [phone] Care Team Providers Care Dinker Name Role Phone Unavailable Primary Care Provider Unavailabl e Reason for Visit * Reason Comments Left Message Encounter Details Date Type Department Care Team (Late st Contact Info) Description 06/25/2023 2:00 PM [facility] Pharm[facility] Pharmacy, [facility] [address] [place] [address] Clinic, Anemia [address] [place] [address] Iron deficiency anemia, unspecified iron deficiency anemia type* Allergies No known active allergiesdocumented as of this encounter (statuses as of 06/25/2023) Medications Medication Sig Dispensed Refills Start Date [...] as of this encounter (statuses as of 06/25/2023) Active Problems Problem Noted Date Diagnosed Date [...] as of this encounter (statuses as of 06/25/2023) Resolved Problems Problem Noted Date Diagnosed Date [...] as of this encounter (statuses as of 06/25/2023) Immunizations Name Administration Dates Next Due HPV [...] drink = 0.6 oz pur e alcohol) [employer] Depression Scale Answer Date Recorded [employer] Depression Scale Total 3 05/27/2023 The thought [...] Progress Notes * Payton Huitron RPh - 06/25/2023 2:06 PM EST CBCd, ferritin, iron screen, retic panel, B12, FA ordered for 07/26/23. Payton Huitron PharmD, BCPS Clinical Pharmacist 06/25/2023 2:06 PM * Tanya Bravo, rn rehab - 06/25/2023 1:50 PM EST Patient Phone Numbers [facility] [phone] Call to patient to schedule labs. Patient received Venofer 300 mg x 3 on 06/10, 06/17 and 06/24. GA: 32w3d Estimated Date of Delivery: 08/17/23 Called patient, no answer, VM Full could not leave message. My sent requesting labs to be done on 07/26/23. Pharmacist - please place appropriate lab orders. Thank you, Tanya Bravo Product Manager Financial Services 06/25/2023,1:51 PM documented in this encounter Plan of Treatment Upcoming Encounters Date Type Department Care Team (Late st Contact Info) Description 06/27/2023 9:00 AM EST Office Visit Gynecology/Obstetrics [facility] [address] [place] [address] Saritha Carvajal CRNP [address] [place] [address] 07/29/2023 9:30 AM EST [facility] [address] [facility] [address] Clinic, [facility] [address] [facility] [address] Scheduled Orders Name Type Priority Associated Diagnoses Orde r Schedule CBC WITH WBC DIFFERENTIAL Lab Routine Iron deficiency anemia, unspecified iron deficiency anemia type Expected: 07/26/2023, Expires: 05/25/2024 IRON SCREEN, INCLUDING TIBC Lab Routine Iron deficiency anemia, unspecified iron deficiency anemia type Expected: 07/26/2023, Expires: 05/25/2024 FERRITIN Lab Routine Iron deficiency anemia, unspecified iron deficiency anemia type Expected: 07/26/2023, Expires: 05/25/2024 RETICULOCYTE PANEL Lab Routine Iron deficiency anemia, unspecified iron deficiency anemia type Expected: 07/26/2023, Expires: 05/25/2024 FOLIC ACID Lab Routine Iron deficiency anemia, unspecified iron deficiency anemia type Expected: 07/26/2023, Expires: 05/25/2024 VITAMIN B12 Lab Routine Iron deficiency anemia, unspecified iron deficiency anemia type Expected: 07/26/2023, Expires: 05/25/2024 Health Maintenance Due Date Last Done Comments [...]
--- OUTSIDE RECORDS SUMMARY | 2023-08-18 01:28 | External Medical Summary | Summary of Care ---
Author Name Unknown Organization [facility] Address [address] [place] [address] Phone [phone] Care Team Providers Care Power Sweeper Operator Name Role Phone Unavailable Primary Care Provider Unavailabl e Reason for Visit * Reason Onset Date Comments Fax 07/03/2023 Encounter Details Date Type Department Care Team (Late st Contact Info) Description 07/03/2023 Telephone Gynecology/Obstetrics [facility] [address] [place] [address] Saritha Carvajal CRNP [address] [place] [address] Fax Allergies No known active allergiesdocumented as of this encounter (statuses as of 07/03/2023) Medications Medication Sig Dispensed Refills Start Date [...] as of this encounter (statuses as of 07/03/2023) Active Problems Problem Noted Date Diagnosed Date [...] as of this encounter (statuses as of 07/03/2023) Resolved Problems Problem Noted Date Diagnosed Date [...] Nutrition Review 9 months booklet 10/01/2019 Shelli uTbbs RN 10/01/2019 Smoking/tobacco abuse Smoking Education 10/01/2019 [...] as of this encounter (statuses as of 07/03/2023) Immunizations Name Administration Dates Next Due HPV [...] drink = 0.6 oz pur e alcohol) Friend[place] Depression Scale Answer Date Recorded [place] Depression Scale Total 3 05/27/2023 The thought [...] encounter Miscellaneous Notes * Telephone Encounter - Emma Holguin LPN - 07/03/2023 3:34 PM EST Breast pump order signed by provider, faxed, placed in scan bin. documented in this encounter Plan of Treatment Upcoming Encounters Date Type Department Care Team (Late st Contact Info) Description 07/08/2023 9:30 AM EST Office Visit Gynecology/Obstetrics [address] [place] [address] Saritha Carvajal CRNP [address] [facility] [address] 07/29/2023 9:30 AM EST Pharmacy Pharmacy, [place] [address] [place] [address] Clinic, [facility] [address] [place], [place] [id number] Health Maintenance Due Date Last Done Comments [...]
--- OUTSIDE RECORDS SUMMARY | 2023-08-18 01:28 | External Medical Summary | Summary of Care ---
Author Name Unknown Organization [facility] Address [address] [place] [address] Phone [phone] Care Team Providers Care Chef Passenger Vessel Name Role Phone Unavailable Primary Care Provider Unavailabl e Reason for Visit * Reason Comments Return Visit Encounter Details Date Type Department Care Team ([facility] st Contact Info) Description 07/22/2023 4:30 PM EST Office Visit Gynecology/Obstetric s Ruthann Ortiz [address] [place] [address] Mitali Haque PA-C [address] [place] [address] Supervision of other normal , antepartum*; Need for rubella vaccination; complicated by tobacco use in third trimester; Antepartum anemia complicating ; Chlamydia infection affecting in third trimester; Fundal height low for dates in third trimester Allergies No known active allergiesdocumented as of this encounter (statuses as of 07/22/2023) Medications Medication Sig Dispensed Refills Start Date [...] as of this encounter (statuses as of 07/22/2023) Active Problems Problem Noted Date Diagnosed Date [...] as of this encounter (statuses as of 07/22/2023) Resolved Problems Problem Noted Date Diagnosed Date [...] as of this encounter (statuses as of 07/22/2023) Immunizations Name Administration Dates Next Due HPV [...] drink = 0.6 oz pur e alcohol) [place] Depression Scale Answer Date Recorded [place] Depression Scale Total 3 05/27/2023 The thought [...] Sign Reading Time Taken Comments Blood Pressure 102/70 07/22/2023 4:33 PM EST Pulse - - Temperature - - Respiratory Rate - - Oxygen Saturation - - Inhaled Oxygen Concentration - - Weight 64.3 kg (141 lb 12.8 oz) 07/22/2023 4:33 PM EST Height 162.6 cm (5' 4") 07/22/2023 4:33 PM EST Body Mass Index 24.34 07/22/2023 4:33 PM EST documented in this encounter Progress Notes * Mitali Haque PA-C - 07/22/2023 5:01 PM EST 36w2d Due for GBS, done. Increasing pelvic pressure. Reports some contraction like feelings several days ago, unsure of timing. Stopped and have not returned. Denies LOF, VB. Pos FM. Desires cervical check. S<D, growth ultrasound ordered Labor precautions reviewed RTC in 1 week Mitali Haque PA-C * Emma Holguin LPN - 07/22/2023 4:38 PM EST 36w2d Gbs today, pt denies any concerns documented in this encounter Plan of Treatment Upcoming Encounters Date Type Department Care Team (Late st Contact Info) Description 07/29/2023 9:30 AM EST Pharmacy Pharmacy, [place] [address] [place] [address] Clinic, [facility] [address] [place] [address] Pending Results Name Type Priority Associated Diagnoses Date /Time GROUP B STREP CULTURE/PCR Lab Routine Supervision of other normal , antepartum 07/22/2023 5:04 PM EST Scheduled Orders Name Type Priority Associated Diagnoses Orde r Schedule US PREG FOLLOW-UP EACH FETUS Medical Imaging Routine Fundal height low for dates in third trimester Expected: 07/22/2023, Expires: 08/22/2024 Health Maintenance Due Date Last Done Comments [...] antepartum Chlamydia infection affecting in third trimester Fundal height low for dates in third trimester documented in this encounter
--- OUTSIDE RECORDS SUMMARY | 2023-08-18 01:28 | External Medical Summary | Summary of Care ---
Author Name Unknown Organization [facility] Address [address] [place] [address] Phone [phone] Care Team Providers Care Diesel Engine Inspector Name Role Phone Unavailable Primary Care Provider Unavailabl e Encounter Details Date Type Department Care Team (Late st Contact Info) Description 07/01/2023 Telephone Gynecology/Obstetrics Ruthann Ortiz [address] [place] [address] Saritha Carvajal CRNP [address] [place] [address] Allergies No known active allergiesdocumented as of this encounter (statuses as of 07/01/2023) Medications Medication Sig Dispensed Refills Start Date [...] as of this encounter (statuses as of 07/01/2023) Active Problems Problem Noted Date Diagnosed Date [...] as of this encounter (statuses as of 07/01/2023) Resolved Problems Problem Noted Date Diagnosed Date [...] as of this encounter (statuses as of 07/01/2023) Immunizations Name Administration Dates Next Due HPV [...] drink = 0.6 oz pur e alcohol) Herod Depression Scale Answer Date Recorded Herod Depression Scale Total 3 05/27/2023 The thought [...] a physical signature on it. Will have Saritha review and sign. Fax to [phone]. documented in this encounter Plan of Treatment Upcoming Encounters Date Type Department Care Team (Late st Contact Info) Description 07/08/2023 9:30 AM EST Office Visit Gynecology/Obstetrics [address] [place] [address] Saritha Carvajal CRNP [address] [facility] [address] 07/29/2023 9:30 AM EST Pharmacy Pharmacy, [place] [address] [place] [address] [facility], [place] [address] [place] [address] Health Maintenance Due Date Last [...]
--- OUTSIDE RECORDS SUMMARY | 2023-08-18 01:28 | External Medical Summary ---
Author Name Unknown Address Unknown Organization K01:[facility] [facility] [address] [facility] [address] Laboratory Report Ordering Provider Test Date Status DILMA TREVIÑO 07/22/2023 17:04:22 Final Observation Date Value Abnormality Reference (Units ) Status Streptococcus agalactiae DNA [Presence] in Specimen by KARTHIKEYAN with probe detection 07/22/2023 17:04:22 Negative Negative Final No Group B Streptococcus det ected by culture-enhanced PCR (amplified probe).
The collection of vaginal/rectal swab specimen combinations (FDA approved specimen type) is optimal for the detection of Group B Streptococcus. Single source collection (vaginal only or rectal only) or alternate specimen sources may lead to false negative results. Performing Location [facility] [place] [address] [address]
--- OUTSIDE RECORDS SUMMARY | 2023-08-18 01:28 | External Medical Summary | Summary of Care ---
Author Name Unknown Organization [facility] Address [address] [place] [address] Phone [phone] Care Team Providers Care Cap Machine Operator Name Role Phone Unavailable Primary Care Provider Unavailabl e Encounter Details Date Type Department Care Team (Late st Contact Info) Description 07/01/2023 Telephone Gynecology/Obstetrics Ruthann Ortiz [address] [place] [address] Alcon Carvajal CRNP [address] [place] [address] Allergies No known active allergiesdocumented as of [...] 02/23/2021 1st trimester education Reviewed w/pt 02/23/2021 Shelil Tubbs RN 02/23/2021 Problem Action Taken Date entered Entered by Date resolved Headaches Tylenol and fluids encouraged 04/10/2021 aKren Rod RN 04/10/2021 Problem Action Taken Date [...] drink = 0.6 oz pur e alcohol) [place] Depression Scale Answer Date Recorded [place] Depression Scale Total 3 05/27/2023 The thought [...] as of this encounter Miscellaneous Notes * Addendum Note - Alcon Carvajal CRNP [...] have Alcon review and sign. Fax to [phone]. documented in this encounter Plan of Treatment Upcoming Encounters Date Type Department Care Team (Late st Contact Info) Description 07/08/2023 9:30 AM EST Office Visit Gynecology/Obstetrics [address] [place] [address] Aclon Carvajal CRNP [address] [place] [address] 07/29/2023 9:30 AM EST Pharmacy Pharmacy, [id number] [address] Health Maintenance Due Date Last Done Comments [...]
--- OUTSIDE RECORDS SUMMARY | 2023-08-18 01:28 | External Medical Summary | Summary of Care ---
Author Name Unknown Organization [facility] Address [address] [place] [address] Phone [phone] Care Team Providers Care Contractor General Building Name Role Phone Unavailable Primary Care Provider Unavailabl e Reason for Visit * Reason Onset Date Comments Anemia Follow-Up 06/12/2023 Encounter Details Date Type Department Care Team (Late st Contact Info) Description 06/12/2023 10:00 AM EDT Pharmacy Pharmacy, [place] [address] [place], [place] [id number] Clinic, Anemia [address] [place] [address] Iron deficiency anemia, unspecified iron deficiency anemia type* Allergies No known active allergiesdocumented as of this encounter (statuses as of 06/12/2023) Medications Medication Sig Dispensed Refills Start Date [...] as of this encounter (statuses as of 06/12/2023) Active Problems Problem Noted Date Diagnosed Date [...] as of this encounter (statuses as of 06/12/2023) Resolved Problems Problem Noted Date Diagnosed Date [...] as of this encounter (statuses as of 06/12/2023) Immunizations Name Administration Dates Next Due HPV [...] drink = 0.6 oz pur e alcohol) Homestead Depression Scale Answer Date Recorded Hom[place] Depression Scale Total 3 05/27/2023 The thought [...] this encounter Progress Notes * Jennifer Velez RP - 06/12/2023 7:53 AM EDT Patient received first dose of Venofer 300 mg x 3 repletion series on 06/10 and appeared to have tolerated it without issue. Next scheduled: 06/17 Scheduled to be completed: 06/24 GA: 30w4d Estimated Date of Delivery: 08/17/23 Follow-up after completion of series to schedule repeat labs if appropriate prior to delivery. Anemia Clinic will continue to follow. Thank you for allowing us to participate in the care of thispatient. Thanks, Jennifer Velez [facility] Clinical Pharmacist 06/12/2023 7:53 AM documented in this encounter Plan of Treatment Upcoming Encounters Date Type Department Care Team (Late st Contact Info) Description 06/17/2023 10:00 AM EDT Hem/Onc Treatment Hematology/Oncology Treatment, [address] [place] [address] Viola, Chair 9 Hem Onc [facility] [address] [place] [address] [place] [id number] 06/24/2023 10:30 AM EST Hem/Onc Treatment Hematology/Oncology Treatment, [place] [address] [facility] [address] Viola, Chair 11 Hem Onc [facility] [address] [place] [address] [place] [address] 06/26/2023 2:00 PM EST Pharmacy Pharmacy, [place] [address] [place] [address] Clinic, Anemia [address] [place] [address] Health Maintenance Due Date Last Done Comments [...]
--- OUTSIDE RECORDS SUMMARY | 2023-08-18 01:28 | External Medical Summary | Summary of Care ---
Author Name Unknown Organization [facility] Address [address] [place] [address] Phone [phone] Care Team Providers Care Insurance Underwriter Sales Name Role Phone Unavailable Primary Care Provider Unavailabl e Reason for Visit * Reason Comments Return Visit Encounter Details Date Type Department Care Team ([facility] st Contact Info) Description 07/08/2023 9:30 AM EST Office Visit Gynecology/Obstetric s [address] [place] [address] Saritha Carvajal CRNP [address] [place] [address] Need for rubella vaccination*; Supervision of other normal , antepartum; Tobacco use affecting , antepartum; Antepartum anemia complicating ; Chlamydia infection affecting , antepartum Allergies No known active allergiesdocumented as of this encounter (statuses as of 07/08/2023) Medications Medication Sig Dispensed Refills Start Date [...] Dx Z39.1 1 Each 0 07/02/2023 Active Cephalexin 500 MG Oral Capsule (Keflex) 1 Capsule in the morning and 1 Capsule in the evening. 0 03/27/2023 07/08/2023 Discontinued (Medication List Clean Up) documented as of this encounter (statuses as of 07/08/2023) Active Problems Problem Noted Date Diagnosed Date [...] as of this encounter (statuses as of 07/08/2023) Resolved Problems Problem Noted Date Diagnosed Date [...] as of this encounter (statuses as of 07/08/2023) Immunizations Name Administration Dates Next Due HPV [...] drink = 0.6 oz pur e alcohol) D[place]ott Depression Scale Answer Date Recorded [place] Depression Scale Total 3 05/27/2023 The thought [...] Sign Reading Time Taken Comments Blood Pressure 104/60 07/08/2023 9:35 AM EST Pulse - - Temperature - - Respiratory Rate - - Oxygen Saturation - - Inhaled Oxygen Concentration - - Weight 62.6 kg (138 lb) 07/08/2023 9:35 AM EST Height - - Body Mass Index 23.69 06/27/2023 9:15 AM EST documented in this encounter Progress Notes * Saritha Carvajal CRNP - 07/08/2023 9:44 AM EST 34w2d C/o heartburn, suggested Prilosec or Pepcid. Asking about IOL, explained at this time it would not be scheduled any earlier than EDC, she should find childcare for her other 2 children for if she goes in to labor around the holidays. Still hasn't heard about breast pump. Multiple rx sent from this office, will reach out again. Baby is active. Denies bleeding or LOF. No contractions. MANJINDER Velasquez * Josie Gates LPN - 07/08/2023 9:35 AM EST 34w2d Denies any issues documented in this encounter Plan of Treatment Upcoming Encounters Date Type Department Care Team (Late st Contact Info) Description 07/29/2023 9:30 AM EST Pharmacy Pharmacy, [place] [address] [place] [address] [facility], [facility] [address] [place] [address] Health Maintenance Due Date Last Done Comments [...] as of this encounter Visit Diagnoses Diagnosis Need for rubella vaccination- Primary Need for prophylactic vaccination and inoculation against rubella alone Supervision of other normal , antepartum Tobacco use affecting , antepartum Antepartum anemia complicating Anemia, antepartum Chlamydia infection affecting , antepartum documented in this encounter
--- OUTSIDE RECORDS SUMMARY | 2023-08-18 01:29 | External Medical Summary | Summary of Care ---
Author Name Unknown Organization [facility] Address [address] [place] [address] Phone [phone] Care Team Providers Care Air Tank Assembler Name Role Phone Unavailable Primary Care Provider Unavailabl e Encounter Details Date Type Department Care Team Description 06/05/2023 Orders Only Pharmacy, [place] [address] [place] [address] Jett [place], [facility] [address] [place] [phone] Allergies No known active allergiesdocumented as of this encounter (statuses as of 06/05/2023) Medications Medication Sig Dispensed Refills Start Date [...] as of this encounter (statuses as of 06/05/2023) Active Problems Problem Noted Date Iron deficiency anemia 06/04/2023 Choroid plexus cysts, , affecting c are of mother, antepartum 04/01/2023 Overview: R 5-6 cm noted on anatomy scan, low risk Qnatal. Repeat in 3rd trimester. Chlamydia infection complicating pregnan cy 01/22/2023 Overview: Chlamydia at NOB. FARRAH next visit. (14w) Supervision of other normal , a ntepartum 01/21/2023 Tobacco use 11/23/2021 Antepartum anemia complicating 07/24/2021 Tobacco use complicating 03/03 Need for rubella vaccination 10/08/2019 Overview: Rubella not immune. Vaccinate PP Migraine with aura 09/24/2008 Estimated Date of Delivery Comme nts Yes 08/17/2023 Based on last me nstrual period of 11/10/2022 (Exact Date) documented as of this encounter (statuses as of 06/05/2023) Resolved Problems Problem Noted Date Resolved Date Tobacco smoking complicating 11/23/2021 Short interval between pregn ancies affecting [...] 05/10/2020 Karen Rod RN 05/10/2020 Menstruation, irregular 07/04/2016 07/04/20 Routine child health exam 10/13/20022010 documented as of this encounter (statuses as of 06/05/2023) Immunizations Name Administration Dates Next Due HPV [...] drink = 0.6 oz pur e alcohol) Estimated Date of Delivery Comme nts Yes 08/17/2023 Based on last me nstrual period of 11/10/2022 (Exact Date) Sex Assigned at Date Recorded Female 01/21/2023 3:03 PM E DT Job Start Date Occupation Industry Not on file Not on file Not on file documented as of this encounter Plan of Treatment Upcoming Encounters Date Type Specialty Care Team Description 06/11/2023 Office Visit Gynecology Obstetrics Saritha Carvajal CRNP [address] [place] [address] 06/12/2023 Pharmacy Pharmacy Clinic, [facility] [address] [facility] [place] [facility] [place] [address] Health Maintenance Due Date Last Done Comments [...]
--- OUTSIDE RECORDS SUMMARY | 2023-08-18 01:29 | External Medical Summary | Summary of Care ---
Author Name Unknown Organization [facility] Address [address] [place] [address] Phone [phone] Care Team Providers Care Maintenance Engineer Oil Field Name Role Phone Unavailable Primary Care Provider Unavailabl e Reason for Visit * Reason Onset Date Comments Anemia Follow-Up 06/04/2023 * Evaluate & Treat - Unlimited Visits (Within 10 days (routine)) - Pending Review Specialty Diagnoses / Procedures Referred By Alma ibanez Referred To Contact Pharmacist / Pharmacy Diagnoses AARON (iron deficiency anemia) Saritha Carvajal CRNP [address] [place] [address] Referral ID Status Reason Start Date Expiration Date Visits Requested Visits Authorized [id number] Pending Review Specialty Services Required 3 [phone] Encounter Details Date Type Department Care Team Description 06/04/2023 Pharmacy Pharmacy, [place] [address] [place], [place] [id number] Clinic, Anemia [address] [place] [address] Iron deficiency anemia, unspecified iron deficiency anemia type* Allergies No known active allergiesdocumented as of this encounter (statuses as of 06/04/2023) Medications Medication Sig Dispensed Refills Start Date [...] as of this encounter (statuses as of 06/04/2023) Active Problems Problem Noted Date Iron deficiency [...] as of this encounter (statuses as of 06/04/2023) Resolved Problems Problem Noted Date Resolved Date [...] as of this encounter (statuses as of 06/04/2023) Immunizations Name Administration Dates Next Due HPV [...] this encounter Progress Notes * Jennifer Velez RPh - 06/04/2023 8:40 AM EDT Patient referred by MANJINDER Castellanos for evaluation of anemia by the Anemia Clinic. Called patient to introduce role/clinic and to review labs from 05/27. Hgb: 10.9 g/dL TSAT: 8 % Ferritin: 9 ng/mL B12: 299 pg/mL FA: 8.3 ng/mL GA: 29w3d Estimated Date of Delivery: 08/17/23 Hgb is below target range for the third trimester. Iron studies below target range. B12 level belowtarget range. FA level within target range. Patient reports feeling extra tired, not really short of breath and otherwise denies signs/symptomsof anemia. Patient is taking B12 1000mcg daily and appears to be tolerating it well. Patient qualifies for IV iron repletion. Plan: Venofer 300 mg IV weekly x 3 doses at SP. Orders placed and routed to appropriate parties. Patient agreeable to intervention. Follow-up labs (CBCD, ferritin, iron screen, retic panel, B12, and FA) to be scheduled 4-6 weeks after iron repletion completed if appropriate prior to delivery. Anemia Clinic will continue to follow. Thank you for allowing us to participate in the care of thispatient. Thanks, Jennifer Velez RPh Clinical Pharmacist 06/04/2023 8:40 AM documented in this encounter Plan of Treatment Upcoming Encounters Date Type Specialty Care Team Description 06/11/2023 Office Visit Gynecology Obstetrics Saritha Carvajal CRNP [address] [place] [address] 06/12/2023 Pharmacy Pharmacy Clinic, Anemia [address] [facility] [place] [address] Scheduled Referrals Name Type Priority Associated Diagnoses Orde r Schedule PHARMACIST MEDS THERAPY MGMT REFERRAL OP Referral Within 10 days (routine) AARON (iron deficiency anemia) Ordered: 05/30/2023 Health Maintenance Due Date Last Done Comments [...]
--- OUTSIDE RECORDS SUMMARY | 2023-08-18 01:29 | External Medical Summary | Summary of Care ---
Author Name Unknown Organization [facility] Address [address] [place] [address] Phone [phone] Care Team Providers Care Television Host Name Role Phone Unavailable Primary Care Provider Unavailabl e Reason for Referral * Evaluate & Treat - Unlimited Visits (Within 10 days (routine)) - Pending Review Specialty Diagnoses / Procedures Referred By Contcolleen t Referred To Contact Pharmacist / Pharmacy Diagnoses AARON (iron deficiency anemia) Saritha Carvajal CRNP [address] [place] [address] Referral ID Status Reason Start Date Expiration Date Visits Requested Visits Authorized [id number] Pending Review Specialty Services Required 3 [phone] Question Answer Referral Priority Within 10 days (routine) Where should this appointment be scheduled? [facility]: Specialist Specialty: industrial yard brake coupler Reason for Referral: Anemia Comments Pharmacist Medication Therapy Management: Iron deficiency anemia [place]ahr [place] RN Reason for Visit * Reason Onset Date Comments Blood Management Program 05/30/2023 Encounter Details Date Type Department Care Team Description 05/30/2023 Telephone Patient Blood Management, [place] [address] [place] [address] Saritha Carvajal CRNP [address] [place] [address] Blood Management Program Allergies No known active allergiesdocumented as of this encounter (statuses as of 06/06/2023) Medications Medication Sig Dispensed Refills Start Date [...] as of this encounter (statuses as of 06/06/2023) Active Problems Problem Noted Date Iron deficiency [...] as of this encounter (statuses as of 06/06/2023) Resolved Problems Problem Noted Date Resolved Date Tobacco smoking complicating 1 11/23/2021 Short interval between pregn ancies affecting , antepartum 06/07/2021 11/23/2021 Overview: G1 born 04/2021 Supervision of other normal 02/23/2021 11/23/2021 Overview: Problem Action Taken Date entered Entered by Date resolved Smoking/tobacco abuse Smoking Education 02/23/2021 Shelli Tubbs RN 02/23/2021 nutrition Provided due date letter for pt to attend [facility] 02/23/2021 Shelli Tubbs RN 02/23/2021 1st trimester [...] due date letter for pt to attend [facility] 10/01/2019 Shelli Tubbs RN 10/01/2019 Problem Action [...] due date letter for pt to attend [facility] 04/14/2020 Shelli Tubbs RN 04/14/2020 Problem Action [...] Rod RN 05/10/2020 Menstruation, irregular 07/04/2016 07/04/20 21 Routine child health exam 10/13/20022010 documented as of this encounter (statuses as of 06/06/2023) Immunizations Name Administration Dates Next Due DTaP [...] encounter Miscellaneous Notes * Telephone Encounter - TILA Guzman - 06/06/2023 8:15 AM EDT Called and spoke to patient and she is scheduled for venofer for 06/10/23. * Telephone Encounter - Aletha Menard RN - 06/06/2023 7:37 AM EDT [place] is signed. Scheduling: please call patient to schedule 2 hour appt "venofer /" (Saritha Carvajal). Thanks! Patient will need venofer once a week x3. * Telephone Encounter - Fina Seay LPN - 06/05/2023 11:27 AM EDT Order received for Venofer 300mg IV weekly x 3 doses [place] created and routed to anemia clinic for signature Prior auth is not needed, patient can be scheduled once plan is signed * Telephone Encounter - Blanca Sheikh RN - 05/30/2023 10:47 AM EDT Patient called and made aware. She verbalized understanding. * Telephone Encounter - MANJINDER Velasquez - 05/30/2023 10:44 AM EDT Please make pt aware I sent rx to [facility] in [place] for Vitamin B12 per blood management recommendation. Please roll picker and take daily. * Telephone Encounter - Tsuhar [place] RN - 05/30/2023 9:38 AM EDT Recommend IV iron per OB MTM protocol. Patient agreeable, prefers infusion at [facility]. documented in this encounter Plan of Treatment Upcoming Encounters Date Type Specialty Care Team Description 06/10/2023 Hem/Onc Treatment Hematology Oncology 06/11/2023 Office Visit Gynecology Obstetrics Saritha Carvajal CRNP [address] [facility] [place] [address] 06/12/2023 Pharmacy Pharmacy Clinic, Anemia [address] [place] [address] Scheduled Referrals Name Type Priority Associated Diagnoses [...] as of this encounter Visit Diagnoses Diagnosis AARON (iron deficiency anemia)- Primary Iron deficiency anemia, unspecified documented in this encounter
--- OUTSIDE RECORDS SUMMARY | 2023-08-18 01:29 | External Medical Summary | Summary of Care ---
Author Name Unknown Organization [facility] Address [address] [place] [address] Phone [phone] Care Team Providers Care Elementary Assistant Teacher Name Role Phone Unavailable Primary Care Provider Unavailabl e Reason for Referral * Evaluate & Treat - Unlimited Visits (Within 10 days (routine)) - Pending Review Specialty Diagnoses / Procedures Referred By Contcolleen t Referred To Contact Pharmacist / Pharmacy Diagnoses AARON (iron deficiency anemia) Saritha Carvajal CRNP [address] [employer] [place] [address] Referral ID Status Reason Start Date Expiration Date Visits Requested Visits Authorized [id number] Pending Review Specialty Services Required [phone] Question Answer Referral Priority Within 10 days (routine) Where should this appointment be scheduled? [facility] Department: Specialist Specialty: equipment service technician Reason for Referral: Anemia Comments Pharmacist Medication Therapy Management: Iron deficiency anemia Tushar [place] RN Reason for Visit * Reason Onset Date Comments Blood Management Program 05/30/2023 Encounter Details Date Type Department Care Team Description 05/30/2023 Telephone Patient Blood Management, [place] [address] [place] [address] Saritha Carvajal CRNP [address] [employer] [place] [address] Blood Management Program Allergies No known active [...] due date letter for pt to attend [facility] 02/23/2021 Sehlli Tubbs RN 02/23/2021 1st trimester education Reviewed [...] due date letter for pt to attend [facility] 10/01/2019 Shelli Tubbs RN 10/01/2019 Problem [...] due date letter for pt to attend [facility] 04/14/2020 Shelli Tubbs RN 04/14/2020 Problem [...] encounter Miscellaneous Notes * Telephone Encounter - Aletha Menard RN - 06/06/2023 7:37 AM EDT [place] is signed. Scheduling: please call patient to schedule 2 hour appt "venofer 08/21" (Saritha Carvajal). Thanks! Patient will need venofer once a week x3. * Telephone Encounter - Fina Seay LPN - 06/05/2023 11:27 AM EDT Order received for Venofer 300mg IV weekly x 3 doses [place] created and routed to anemia clinic for signature Prior auth is not needed, patient can be scheduled once plan is signed * Telephone Encounter - Blanca Sheikh RN - 05/30/2023 10:47 AM EDT Patient called and made aware. She verbalized understanding. * Telephone Encounter - MANJINDER Velasquez - 05/30/2023 10:44 AM EDT Please make pt aware I sent rx to [facility] in [place] for Vitamin B12 per blood management recommendation. Please tow picker and take daily. * Telephone Encounter - Tushar [place] RN - 05/30/2023 9:38 AM EDT Recommend IV iron per OB MTM protocol. Patient agreeable, prefers infusion at [facility]. documented in this encounter Plan of Treatment Upcoming Encounters Date Type Specialty Care Team Description 06/11/2023 Office Visit Gynecology Obstetrics Saritha Carvajal CRNP [address] [place] [address] 06/12/2023 Pharmacy Pharmacy Clinic, An[place] [address] [facility] [place] [address] Scheduled Referrals Name Type Priority Associated Diagnoses [...]
--- OUTSIDE RECORDS SUMMARY | 2023-08-18 01:29 | External Medical Summary | Summary of Care ---
Author Name Unknown Organization [facility] Address [address] [place] [address] Phone [phone] Care Team Providers Care Horizontal Drill Operator Name Role Phone Unavailable Primary Care Provider Unavailabl e Reason for Referral * Evaluate & Treat - Unlimited Visits (Within 10 days (routine)) - Pending Review Specialty Diagnoses / Procedures Referred By Contcolleen t Referred To Contact Pharmacist / Pharmacy Diagnoses AARON (iron deficiency anemia) Saritha Carvajal CRNP [address] [place] [address] Referral ID Status Reason Start Date Expiration Date Visits Requested Visits Authorized [id number] Pending Review Specialty Services Required 3 [phone] Question Answer Referral Priority Within 10 days (routine) Where should this appointment be scheduled? [facility] Department: Specialist Specialty: recreation therapy teacher Reason for Referral: Anemia Comments Pharmacist Medication Therapy Management: Iron deficiency anemia Tushar Villela RN Reason for Visit * Reason Onset Date Comments Blood Management Program 05/30/2023 Encounter Details Date Type Department Care Team Description 05/30/2023 Telephone Patient Blood Management, [place] [address] [place] [address] Saritha Carvajal CRNP [address] [place] [address] Blood Management Program Allergies No known active [...] due date letter for pt to attend [facility] 02/23/2021 Shelli Tubbs RN 02/23/2021 1st trimester [...] due date letter for pt to attend [facility] 10/01/2019 Shelli Tubbs RN 10/01/2019 Problem Action [...] due date letter for pt to attend [facility] 04/14/2020 Shelli Tubbs RN 04/14/2020 Problem Action [...] 06/05/2023) Immunizations Name Administration Dates Next Due DTaP [...] encounter Miscellaneous Notes * Telephone Encounter - Fina Seay LPN - 06/05/2023 11:27 AM EDT Order received for Venofer 300mg IV weekly x 3 doses [place] created and routed to anemia clinic for signature Prior auth is not needed, patient can be scheduled once plan is signed * Telephone Encounter - Blanca Sheikh RN - 05/30/2023 10:47 AM EDT Patient called and made aware. She verbalized understanding. * Telephone Encounter - MANJINDER Velasquez - 05/30/2023 10:44 AM EDT Please make pt aware I sent rx to [facility] [place] for Vitamin B12 per blood management recommendation. Please warehouse order picker and take daily. * Telephone Encounter - Tushar Villela RN - 05/30/2023 9:38 AM EDT Recommend IV iron per OB MTM protocol. Patient agreeable, prefers infusion at [facility]. documented in this encounter Plan of Treatment Upcoming Encounters Date Type Specialty Care Team Description 06/11/2023 Office Visit Gynecology Obstetrics Wei, MANJINDER [place] [address] [facility] [address] 06/12/2023 Pharmacy Pharmacy Clinic, Anemia [address] [place] [address] Scheduled Referrals Name Type Priority Associated Diagnoses [...]
--- OUTSIDE RECORDS SUMMARY | 2023-08-18 01:29 | External Medical Summary | Summary of Care ---
Author Name Unknown Organization [facility] Address [address] [place] [address] Phone [phone] Care Team Providers Care Field Property Loss Specialist Name Role Phone Unavailable Primary Care Provider Unavailabl e Encounter Details Date Type Department Care Team Description 06/05/2023 Orders Only Hematology/Oncology [facility] Viola Taylor [address] [place] [address] Saritha Carvajal CRNP [address] [facility] [address] Allergies No known active allergiesdocumented as of [...] Carvajal CRNP [address] [place] [address] 06/12/2023 Pharmacy Pharmacy Clinic, [address] [place] [address] Health Maintenance Due Date Last Done Comments [...]
--- OUTSIDE RECORDS SUMMARY | 2023-08-18 01:29 | External Medical Summary | Summary of Care ---
Author Name Unknown Organization [facility] Address [address] [place] [address] Phone [phone] Care Team Providers Care Antenna Machine Operator Name Role Phone Unavailable Primary Care Provider Unavailabl e Reason for Visit * Reason Comments IV Therapy Venofer 08/21 Encounter Details Date Type Department Care Team (Latest Contact Info) Description 06/10/2023 11:00 AM EDT Hem/Onc Treatment Hematology/Oncology Treatment, [place] [address] [place] [address] Iron deficiency anemia, unspecified iron deficiency anemia type* Allergies No known active allergiesdocumented as of this encounter (statuses as of 06/10/2023) Medications Medication Sig Dispensed Refills Start Date [...] as of this encounter (statuses as of 06/10/2023) Active Problems Problem Noted Date Diagnosed Date [...] as of this encounter (statuses as of 06/10/2023) Resolved Problems Problem Noted Date Diagnosed Date [...] as of this encounter (statuses as of 06/10/2023) Immunizations Name Administration Dates Next Due HPV [...] drink = 0.6 oz pur e alcohol) Waldo Depression Scale Answer Date Recorded Waldo Depression Scale Total 3 05/27/2023 The thought [...] Sign Reading Time Taken Comments Blood Pressure 103/61 06/10/2023 11:06 AM EDT Pulse 100 06/10/2023 11:06 AM EDT Temperature 36.6 C (97.9 F) 06/10/2023 11:06 AM E DT Respiratory Rate 18 06/10/2023 11:06 AM EDT Oxygen Saturation 98% 06/10/2023 11:06 AM EDT Inhaled Oxygen Concentration - - Weight - - Height - - Body Mass Index - - documented in this encounter Nursing Notes * Georgette Francisco RN - 06/10/2023 3:08 PM EDT Pt completed treatment without issues. IV removed. Goals: Pt will remain free from injury. Possible barriers to meeting goals: ambulation with IV pole Stability of the patient: Moderately stable - low risk of patient condition declining or worsening Summary regarding today's goals: Met: Pt remained free from injury during treatment today. Discharged in stable condition. AB assisted. * Georgette Francisco RN - 06/10/2023 11:37 AM EDT Chair 7, David. Pt has no acute concerns to report today. Reviewed medication and infusion process; pt verbalized understanding. PIV established; Venofer infusing. Safety and Risk for Injury Patient will remain free from injury. Ensure appropriate safety devices are available. Provide and maintain safe environment. documented in this encounter Plan of Treatment Upcoming Encounters Date Type Department Care Team (Late st Contact Info) Description 06/11/2023 9:00 AM EDT Office Visit Gynecology/Obstetrics Ruthann Ortiz [address] [place] [address] Saritha Carvajal CRNP [address] [place] [address] 06/12/2023 10:00 AM EDT Pharmacy Pharmacy, [place] [address] [place] [address] Clinic, [place] [address] [place] [address] 06/17/2023 10:00 AM EDT Hem/Onc Treatment Hematology/Oncology Treatment, [place] [address] [place] [address] Viola, Chair 9 Hem Onc [address] [place] [address] 06/24/2023 10:30 AM EST Hem/Onc Treatment Hematology/Oncology Treatment, [place] [address] [place] [address] Viola, Chair 11 Hem Onc [facility] [address] [place] [address] [place] [address] Health Maintenance Due Date Last Done Comments [...] ONCE PRN Other, Hypersensitivity Reaction, Starting on Sat06/10/23 at 1120, Until Sat06/11/23 at 1119, For 24 hours EPINEPHrine 1 MG/ML inj 0.3 mg 0.3 mg, Intramuscular, ONCE PRN Other, Hypersensitivity Reaction or Anaphylaxis, Starting on Sat06/10/23 at 1120, Until Sat06/11/23 at 1119, For 24 hours hEParin 100 UNIT/ML Lock Flush inj 500 Units 500 Units (5 mL), IV Lock, PRN Other, IV Flush, Starting on Sat06/10/23 at 1120, Until Sat06/11/23 at 1119, For 24 hours, Do not flush if lock, PICC, or central line not in place; IV infusing or unable to flush. Hydrocortisone Sod Suc (PF) (Solu-Cortef) inj 100 mg 100 mg, IV Push, ONCE PRN Other, Hypersensitivity Reaction, Starting on Sat06/10/23 at 1120, Until Sat06/11/23 at 1119, For 24 hours NSS infusion 500 mL, Intravenous, at 50 mL/hr, CONTINUOUS, Starting on Sat06/10/23 at 1230, Until Sat06/10/23 at 2229 Start Infusion 06/10/2023 11:23 AM EDT 500 mL 50 mL/hr oxygen GAS Inhalation, OXYGEN, First dose on Sat06/10/23 at 1600, Until Discontinued, Device/Managed by: Low Flow Device, [...] Push, PRN Other, IV Flush, Starting on Sat06/10/23 at 1120, Until Sat06/11/23 at 1119, For 24 hours, Do not flush if lock, PICC, or central line not in place; IV infusing or unable to flush. Inactive Administered Medications - up to 3 most recent administrations Medication Order MAR Action Action Date Dose Rate Site Iron Sucrose (Venofer) 300 mg in NSS 250 mL ivpb 300 mg, IV Piggyback, ONCE, 1 dose, On Sat06/10/23 at 1300, Administer over 90 Minutes Start Infusion 06/10/2023 11:23 AM EDT 300 mg 166.67 mL/hr documented in this encounter
--- OUTSIDE RECORDS SUMMARY | 2023-08-18 01:29 | External Medical Summary | Summary of Care ---
Author Name Unknown Organization [facility] Address [address] [place] [address] Phone [phone] Care Team Providers Care Hospice Superintendent Name Role Phone Unavailable Primary Care Provider Unavailabl e Reason for Visit * Reason Comments Return Visit Encounter Details Date Type Department Care Team ([facility] st Contact Info) Description 06/11/2023 9:00 AM EDT Office Visit Gynecology/Obstetric s Ruthann Ortiz [address] [place] [address] Saritha Carvajal CRNP [address] [place] [address] Supervision of other normal , antepartum*; Need for rubella vaccination; complicated by tobacco use in third trimester; Antepartum anemia complicating ; Chlamydia infection affecting , antepartum Allergies No known active allergiesdocumented as of this encounter (statuses as of 06/11/2023) Medications Medication Sig Dispensed Refills Start Date [...] as of this encounter (statuses as of 06/11/2023) Active Problems Problem Noted Date Diagnosed Date [...] as of this encounter (statuses as of 06/11/2023) Resolved Problems Problem Noted Date Diagnosed Date [...] as of this encounter (statuses as of 06/11/2023) Immunizations Name Administration Dates Next Due HPV [...] drink = 0.6 oz pur e alcohol) Thornton Depression Scale Answer Date Recorded Thornton Depression Scale Total 3 05/27/2023 The thought [...] Sign Reading Time Taken Comments Blood Pressure 100/60 06/11/2023 8:49 AM EDT Pulse - - Temperature - - Respiratory Rate - - Oxygen Saturation - - Inhaled Oxygen Concentration - - Weight 62.2 kg (137 lb 3.2 oz) 06/11/2023 8:49 A M EDT Height 162.6 cm (5' 4") 06/11/2023 8:49 AM EDT Body Mass Index 23.55 06/11/2023 8:49 AM EDT documented in this encounter Progress Notes * MANJINDER Velasquez - 06/11/2023 9:05 AM EDT 30w3d Complaints: none Feeling well overall. Good FM. No contractions, bleeding, or LOF. Started iron infusions yesterday. MANJINDER Velasquez * Emma Holguin LPN - 06/11/2023 8:54 AM EDT 30w3d Pt denies any concerns, would like BP prescription sent [facility]. documented in this encounter Plan of Treatment Upcoming Encounters Date Type Department Care Team (Late st Contact Info) Description 06/12/2023 10:00 AM EDT Pharmacy Pharmacy, [place] [address] [place] [address] Clinic, [facility] [address] [place] [address] 06/17/2023 10:00 AM EDT Hem/Onc Treatment Hematology/Oncology Treatment, [place] [address] [facility], [place] [address] Viola, Chair 9 Hem Onc [place] [address] [place] [address] [place], [place] [address] 06/24/2023 10:30 AM EST Hem/Onc Treatment Hematology/Oncology Treatment, [place] [address] [facility], [place] [address] Viola, Chair 11 Hem Onc [place] [address] [facility] [place], [place] [address] Health Maintenance Due Date Last Done Comments [...]
--- OUTSIDE RECORDS SUMMARY | 2023-08-18 01:30 | External Medical Summary ---
Author Name Unknown Address Unknown Organization [id number]:[facility] [place] [address] [place] [address] Laboratory Report Ordering Provider Test Date Status ELIZABETH RONDON 05/27/2023 10:31:46 Final Observation Date Value Abnormality Reference (Units ) Status Folic Acid 05/27/2023 10:31:46 8.3 >4.5 (ng/ mL) Final Performing Location [facility] - [address] [place] [address]
--- OUTSIDE RECORDS SUMMARY | 2023-08-18 01:30 | External Medical Summary | Summary of Care ---
Author Name Unknown Organization [facility] Address [address] [place] [address] Phone [phone] Care Team Providers Care Electronics Repair Technician Name Role Phone Unavailable Primary Care Provider Unavailabl e Encounter Details Date Type Department Care Team Description 05/28/2023 Telephone Gynecology/Obstetrics Ruthnan Buchanans [address] [facility] [place] [address] Saritha Carvajal CRNP [address] [facility] [place] [address] Allergies No known active allergiesdocumented as of this encounter (statuses as of 05/29/2023) Medications Medication Sig Dispensed Refills Start Date [...] Dx Z39.1 1 Each 9 05/28/2023 Active documented as of this encounter (statuses as of 05/29/2023) Active Problems Problem Noted Date Choroid plexus cysts, , affecting c are [...] as of this encounter (statuses as of 05/29/2023) Resolved Problems Problem Noted Date Resolved Date [...] due date letter for pt to attend [facility] 10/01/2019 Shelli Tubbs RN 10/01/2019 Problem Action [...] as of this encounter (statuses as of 05/29/2023) Immunizations Name Administration Dates Next Due DTaP [...] encounter Miscellaneous Notes * Telephone Encounter - Blanca Sheikh RN - 05/29/2023 2:43 PM EDT Patient called back and made aware of results. Patient verbalized understanding. She is agreeable to referral for IV Iron infusions. * Telephone Encounter - Antoinette Thakkar LPN - 05/28/2023 9:52 AM EDT left message for patient to call office * Telephone Encounter - MANJINDER Velasquez - 05/28/2023 9:46 AM EDT Please notify pt that she passed her glucola but she is anemic. Hgb 10.9, which recommendation is IV iron infusions. If agreeable, route back and I'll place order. documented in this encounter Plan of Treatment Upcoming Encounters Date Type Specialty Care Team Description 06/11/2023 Office Visit Gynecology Obstetrics Saritha Carvajal CRNP [address] [facility] [place] [address] Health Maintenance Due Date Last Done Comments [...]
--- OUTSIDE RECORDS SUMMARY | 2023-08-18 01:30 | External Medical Summary ---
Author Name Unknown Address Unknown Organization [id number]:[facility] [place] - [address] [place] [address] Laboratory Report Ordering Provider Test Date Status ELIZABETH RONDON 05/27/2023 10:31:46 Final Observation Date Value Abnormality Reference (Units ) Status Treponema pallidum Ab [Presence] in Serum by Immunoassay 05/27/2023 10:31:46 Nonreactive Nonreactive Final No serologic evidence of syp hilis. No additional testing clinicially indicated at this time. Consider repeat testing in 2-4 weeks if acute or primary syphilis is suspected. Performing Location LAB[facility]ATORY [facility] - [address] [place] [address]
--- OUTSIDE RECORDS SUMMARY | 2023-08-18 01:30 | External Medical Summary ---
Author Name Unknown Address Unknown Organization [id number][place] [place] [address] [place] [address] Laboratory Report Ordering Provider Test Date Status ALCONELIZABETH 05/27/2023 10:31:46 Final Observation Date Value Abnormality Reference (Units ) Status Iron 05/27/2023 10:31:46 37 33-151 (ug/dL) Final Iron-binding capacity 05/27/2023 10:31:46 440 Above high normal 250-425 (ug/dL) Final Transferrin Sat % 05/27/2023 10:31:46 8 Below low normal 15-55 (%) Final Performing Location [facility] [place] [address] [place] [address]
--- OUTSIDE RECORDS SUMMARY | 2023-08-18 01:30 | External Medical Summary ---
Author Name Unknown Address Unknown Organization K01:[facility]AT[facility] - [address] [place] [address] Laboratory Report Ordering Provider Test Date Status YUMI RONDONMARIZOL 05/27/2023 10:31:46 Final Observation Date Value Abnormality Reference (Units ) Status SYNC LEUKOCYTES IN BLOOD BY AUTOMATED COUNT 05/27/2023 10:31:46 10.18 4.00-10.80 (K/uL) Final Segs 05/27/2023 10:31:46 74.7 40.0-75.0 (%) Final Lymphs % 05/27/2023 10:31:46 18.6 18.0-42.0 (%) Final Monos 05/27/2023 10:31:46 3.8 1.0-11.0 (%) Final Eosinophils 05/27/2023 10:31:46 1.8 0.0-6.0 (%) Final Basos 05/27/2023 10:31:46 0.3 0.0-2.0 (%) Final Immature Granulocyte, Percent 05/27/2023 10:31:46 0.8 0.0-2.0 (%) Final Absolute Segs 05/27/2023 10:31:46 7.61 1.80-7.70 (K/uL) Final Lymphs, absolute 05/27/2023 10:31:46 1.89 1.00-4.80 (K/ul) Final Monos, Abs 05/27/2023 10:31:46 0.39 0.00-1.10 (K/uL) Final Eos, Abs 05/27/2023 10:31:46 0.18 0.00-0.70 (K/uL) Final Basos, Abs 05/27/2023 10:31:46 0.03 0.00-0.20 (K/uL) Final Immature Granulocytes, Number 05/27/2023 10:31:46 0.08 0.00-0.20 (K/uL) Final Performing Location LAB[facility] - [address] [facility] [address]
--- OUTSIDE RECORDS SUMMARY | 2023-08-18 01:30 | External Medical Summary | Summary of Care ---
Author Name Unknown Organization [facility] Address [address] [place] [address] Phone [phone] Care Team Providers Care Automotive Professional Name Role Phone Unavailable Primary Care Provider Unavailabl e Reason for Visit * Reason Comments Blood Management Program Encounter Details Date Type Department Care Team Description 05/30/2023 Documentation Patient Blood Management, [place] [address] [place] [address] Tushar Villela RN Allergies No known active allergiesdocumented as of this encounter (statuses as of 05/30/2023) Medications Medication Sig Dispensed Refills Start Date [...] as of this encounter (statuses as of 05/30/2023) Active Problems Problem Noted Date Choroid plexus [...] as of this encounter (statuses as of 05/30/2023) Resolved Problems Problem Noted Date Resolved Date [...] date letter for pt to attend [place] 10/01/2019 Shelli Tubbs RN 10/01/2019 Problem Action [...] 2nd trimester education Reviewed w/pt 12/24/2019 Shelli Tubbs, CHANDRIKA 12/24/2019 Problem Action Taken Date entered Entered [...] as of this encounter (statuses as of 05/30/2023) Immunizations Name Administration Dates Next Due HPV [...] as of this encounter Progress Notes * Tushar Villela RN - 05/30/2023 9:33 AM EDT REFERRAL - Patient Blood Management Name: Salina Turcios REQUESTING SERVICE: Jaspreet Ortiz OB REASON FOR REFERRAL: new evaluation outpatient, anemia in [place]: 08/17/23 Anemia Evaluation: Latest Reference Range & Units 05/27/23 10:31 HGB 12.0 - 15.3 g/dL 10.9 (L) HCT 36.0 - 45.2 % 35.1 (L) Iron 33 - 151 ug/dL 37 Iron Binding Capacity 250 - 425 ug/dL 440 (H) Transferrin Saturation Percent 15 - 55 % 8 (L) Ferritin 13 - 150 ng/mL 9 (L) Vitamin B12 232 - 1,245 pg/mL 299 Folic Acid >4.5 ng/mL 8.3 Immature Reticuloctye Fraction 2.5 - 20.6 % 20.1 Reticulocyte Hemoglobin 29.7 - 37.4 pg 30.7 (L): Data is abnormally low (H): Data is abnormally high Current Patient Medications: Medications that may impair hemostasis: none Medications that may impair iron absorption: none Patient Refused Blood Transfusion? (e.g. Religion): no Possible Contributing Factors: iron deficiency and vitamin B12 deficiency Treatment Recommendations: B12 1000mcg PO daily - OB to send to pharmacy IV iron per OB MTM protocol 05/30 - spoke with Salina, agreeable to IV iron. Will submit OB MTM. Thank you for allowing Blood Management to participate in the care of this patient. documented in this encounter Plan of Treatment Upcoming Encounters Date Type Specialty Care Team Description 06/11/2023 Office Visit Gynecology Obstetrics Saritha Carvajal CRNP [address] [facility] [place] [address] Health Maintenance Due Date Last Done Comments [...]
--- OUTSIDE RECORDS SUMMARY | 2023-08-18 01:30 | External Medical Summary | Summary of Care ---
Author Name Unknown Organization [facility] Address [address] [place] [address] Phone [phone] Care Team Providers Care Rod Mill Tender Name Role Phone Unavailable Primary Care Provider Unavailabl e Encounter Details Date Type Department Care Team Description 05/28/2023 Telephone Gynecology/Obstetrics Ruthann Buchanans [address] [facility] [place] [address] Saritha Carvajal CRNP [address] [place] [address] Allergies No known active allergiesdocumented as of [...] due date letter for pt to attend [facility] 10/01/2019 Shelli Tubbs RN 10/01/2019 Problem [...] 05/29/2023) Immunizations Name Administration Dates Next Due HPV [...] encounter Miscellaneous Notes * Telephone Encounter - Antoinette Thakkar LPN [...] Encounters Date Type Specialty Care Team Description 05/29/2023 Imaging Radiology 06/11/2023 Office Visit Gynecology Obstetrics Saritha Carvajal CRNP [address] [place] [address] Health Maintenance Due Date Last Done Comments [...]
--- OUTSIDE RECORDS SUMMARY | 2023-08-18 01:30 | External Medical Summary | Summary of Care ---
Author Name Unknown Organization [facility] Address [address] [place] [address] Phone [phone] Care Team Providers Care Clothing And Textiles Teacher Name Role Phone Unavailable Primary Care Provider Unavailabl e Reason for Visit * Reason Comments Outpatient Testing Encounter Details Date Type Department Care Team Description 05/27/2023 Laboratory Laboratory [address] [place] [phone] [place] [address] Supervision of other normal , antepartum Allergies No known active allergiesdocumented as of this encounter (statuses as of 05/27/2023) Medications Medication Sig Dispensed Refills Start Date End Date Status Plus 27-1 MG Oral TabletIndications:Enc ounter for supervision of other normal in first trimester Take 1 Tablet by mouth in the morning. 100 Tablet 3 01/21/2023 Active Cephalexin 500 MG Oral Capsule (Keflex) 1 Capsule in the morning and 1 Capsule in the evening. 0 03/27/2023 Active documented as of this encounter (statuses as of 05/27/2023) Active Problems Problem Noted Date Choroid plexus cysts, , affecting c are of mother, antepartum 04/01/2023 Overview: R 5-6 cm noted on anatomy scan, low risk Qnatal. Repeat in 3rd trimester. Chlamydia infection complicating pregnan cy 01/22/2023 Overview: Chlamydia at NOB. FARRAH next visit. (14w) Supervision of other normal , a ntepartum 01/21/2023 Tobacco use 11/23/2021 Tobacco use complicating 03/03 Need for rubella vaccination 10/08/2019 Overview: Rubella not immune. Vaccinate PP Migraine with aura 09/24/2008 Estimated Date of Delivery Comme nts Yes 08/17/2023 Based on last me nstrual period of 11/10/2022 (Exact Date) documented as of this encounter (statuses as of 05/27/2023) Resolved Problems Problem Noted Date Resolved Date Tobacco smoking complicating 11/23/2021 Antepartum anemia complicating 021 11/23/2021 Overview: hgb 10.8 at 28 wks, iron rx sent Short interval between pregn ancies affecting , [...] as of this encounter (statuses as of 05/27/2023) Immunizations Name Administration Dates Next Due HPV [...] Carvajal CRNP [address] [place] [address] Pending Results Name Type Priority Associated Diagnoses Date /Time 50-G GESTATIONAL GLUCOSE, 1 HOUR Lab Routine Supervision of other normal , antepartum 05/27/2023 10:31 AM EDT CBC WITH WBC DIFFERENTIAL AND ANEMIA REFLEX WORKUP Lab Routine Supervision of other normal , antepartum 05/27/2023 10:31 AM EDT SYPHILIS ANTIBODY SCREEN WITH REFLEX TO RPR Lab Routine Supervision of other normal , antepartum 05/27/2023 10:31 AM EDT ANEMIA CBC Lab Routine Supervision of other normal , antepartum 05/27/2023 10:31 AM EDT DIFFERENTIAL, AUTOMATED Lab Routine Supervision of other normal , antepartum 05/27/2023 10:31 AM EDT ANEMIA REFLEX CHEMISTRY HOLD Lab Routine Supervision of other normal , antepartum 05/27/2023 10:31 AM EDT SYPHILIS ANTIBODY SCREEN Lab Routine Supervision of other normal , antepartum 05/27/2023 10:31 AM EDT Health Maintenance Due Date Last Done Comments [...] Diagnoses Diagnosis Supervision of other normal , antepartum documented in this encounter
--- OUTSIDE RECORDS SUMMARY | 2023-08-18 01:30 | External Medical Summary | Summary of Care ---
Author Name Unknown Organization [facility] Address [address] [place] [address] Phone [phone] Care Team Providers Care Locker Room Attendant Name Role Phone Unavailable Primary Care Provider Unavailabl e Reason for Visit * Reason Onset Date Comments Fax 05/30/2023 Encounter Details Date Type Department Care Team Description 05/30/2023 Telephone Gynecology/Obstetrics [facility] [address] [facility] [place] [address] Saritha Carvajal CRNP [address] [facility] [address] Fax Allergies No known active allergiesdocumented as [...] having any current needs or questions 04/21/2020 Kaern Rod RN 04/21/2020 Problem Action Taken Date [...] Telephone Encounter - Emma Holguin LPN - 05/30/2023 8:33 AM EDT [facility] pre-admit form faxed, placed in scan bin. documented in this encounter Plan of Treatment Upcoming Encounters Date Type Specialty Care Team Description 06/11/2023 Office Visit Gynecology Obstetrics Saritha Carvajal CRNP [address] [place] [address] Health Maintenance Due Date Last Done Comments [...]
--- OUTSIDE RECORDS SUMMARY | 2023-08-18 01:30 | External Medical Summary ---
Author Name Unknown Address Unknown Organization [id number]:[facility] [place] [facility] [address] [place] [address] Laboratory Report Ordering Provider Test Date Status ELIZABETH RONDON 05/27/2023 10:31:46 Final Observation Date Value Abnormality Reference (Units ) Status WBC, Total 05/27/2023 10:31:46 10.18 4.00-10.8 0 (K/uL) Final RBC 05/27/2023 10:31:46 3.70 3.85-5.15 (M/uL) Final Hemoglobin 05/27/2023 10:31:46 10.9 Below low normal 12 .0-15.3 (g/dL) Final Anemia reflex testing trigge rs on a HGB < 12.0 for Females and HGB < 13.0 for Males in accordance with the WHO Anemia Guidelines
Anemia reflex testing triggers on a HGB < 12.0 for Females and HGB < 13.0 for Males in accordance with the WHO Anemia Guidelines HCT 05/27/2023 10:31:46 35.1 Below low normal 36. 0-45.2 (%) Final MCV 05/27/2023 10:31:46 94.9 81.5-97.5 (fL) Final MCH 05/27/2023 10:31:46 29.5 27.0-34.0 (pg) Final MCHC 05/27/2023 10:31:46 31.1 32.0-36.0 (g/dL) Final RDW 05/27/2023 10:31:46 13.6 11.5-15.5 (%) Final Platelets 05/27/2023 10:31:46 234 140-400 (K /uL) Final MPV 05/27/2023 10:31:46 12.5 6.6-11.1 ( fL) Final Nucleated erythrocytes/100 leukocytes [Ratio] in Blood by Automated count 05/27/2023 10:31:46 0 <=0 (/100 WBCs) Final Performing Location LABORATORY [place] [address] [facility] [address]
--- OUTSIDE RECORDS SUMMARY | 2023-08-18 01:30 | External Medical Summary ---
Author Name Unknown Address Unknown Organization [id number]:LABORATORY [facility] [place] - [address] [place] [address] Laboratory Report Ordering Provider Test Date Status ELIZABETH RONDON 05/27/2023 10:31:46 Final Observation Date Value Abnormality Reference (Units ) Status Glucose [Moles/volume] in Serum or Plasma --1 hour post 50 g glucose PO 05/27/2023 10:31:46 86 70-129 (mg/dL) Final Performing Location LABORATORY [facility] [place] - [address] [place] [address]
--- OUTSIDE RECORDS SUMMARY | 2023-08-18 01:30 | External Medical Summary | Summary of Care ---
Author Name Unknown Organization [facility] Address [address] [place] [address] Phone [phone] Care Team Providers Care Card Reader Name Role Phone Unavailable Primary Care Provider Unavailabl e Encounter Details Date Type Department Care Team Description 06/04/2023 Orders Only Gynecology/Obstetrics Ruthann Ortiz [address] [place] [address] Saritha Carvajal CRNP [address] [place] [address] Iron deficiency anemia, unspecified iron deficiency anemia [...] Encounters Date Type Specialty Care Team Description 06/04/2023 Pharmacy Pharmacy Clinic, Anemia [address] [place] [address] Iron deficiency anemia, unspecified iron deficiency anemia type* 06/11/2023 Office Visit Gynecology Obstetrics Saritha Carvajal CRNP [address] [place] [address] 06/12/2023 Pharmacy Pharmacy Clinic, Anemia [address] [place] [facility] [place] [address] Health Maintenance Due Date Last Done Comments [...] anemia, unspecified iron deficiency anemia type- Primary Iron deficiency anemia, unspecified iron deficiency anemia type- Primary documented in this encounter
--- OUTSIDE RECORDS SUMMARY | 2023-08-18 01:30 | External Medical Summary | Summary of Care ---
Author Name Unknown Organization [facility] Address [address] [place] [address] Phone [phone] Care Team Providers Care Game Attendant Name Role Phone Unavailable Primary Care Provider Unavailabl e Reason for Referral * (Within 10 days (routine)) Specialty Diagnoses / Procedures Referred By Alma ibanez Referred To Contact Alcon Carvajal CRNP [address] [place] [address] Referral ID Status Reason Start Date Expiration Date Visits Re quested Visits Authorized Question Answer Referral Priority Within 10 days (routine) Where should this appointment be scheduled? [facility] Encounter Details Date Type Department Care Team Description 05/28/2023 Telephone [facility] [address] [place] [address] Alcon Carvajal CRNP [address] [place] [address] Allergies No known active allergiesdocumented as of [...] encounter Miscellaneous Notes * Addendum Note - MANJINDER Velasquez - 05/29/2023 4:02 PM EDTAddended by: ALCON CARVAJAL on: 05/29/2023 04:02 PM Modules accepted: Orders * Telephone Encounter - MANJINDER Velasquez - 05/29/2023 4:02 PM EDT Referral placed. * Telephone Encounter - Blanca Sheikh RN [...] Team Description 06/11/2023 Office Visit Gynecology Obstetrics Alcon Carvajal CRNP [address] [facility] [place] [address] Scheduled Referrals Name Type Priority Associated Diagnoses Orde r Schedule BLOOD MANAGEMENT REFERRAL Referral Within 10 days (routine) Antepartum anemia complicating Ordered: 05/29/2023 Health Maintenance Due Date Last Done Comments [...] as of this encounter Visit Diagnoses Diagnosis Antepartum anemia complicating - Primary Anemia, antepartum documented in this encounter
--- OUTSIDE RECORDS SUMMARY | 2023-08-18 01:30 | External Medical Summary ---
Author Name Unknown Address Unknown Organization [id number]:[facility] [place] [facility] [address] [place] [address] Laboratory Report Ordering Provider Test Date Status ELIZABETH RONDON 05/27/2023 10:31:46 Final Observation Date Value Abnormality Reference (Units ) Status Creatinine 05/27/2023 10:31:46 0.6 0.5-1.0 (mg/dL) Final Glomerular filtration rate/1.73 sq M.predicted [Volume Rate/Area] in Serum, Plasma or Blood by Creatinine-based formula (CKD-EPI) 05/27/2023 10:31:46 >90 >=60 (mL/min) Final eGFR is calculated based on the CKD-EPI 2020 equation Performing Location [facility] [place] [facility] [address] [place] [address]
--- OUTSIDE RECORDS SUMMARY | 2023-08-18 01:30 | External Medical Summary ---
Author Name Unknown Address Unknown Organization K01:[facility]ORY [facility] [place] - [facility] [place] [address] Laboratory Report Ordering Provider Test Date Status YUMI RONDONMARIZOL 05/27/2023 10:31:46 Final Observation Date Value Abnormality Reference (Units ) Status Retic, % (auto) 05/27/2023 10:31:46 2.22 Above high normal 0.80-1.90 (%) Final Reticulocytes, Absolute 05/27/2023 10:31:46 82.1 31.3-100.1 (K/uL) Final Reticulocyte fraction, immature 05/27/2023 10:31:46 20.1 2.5-20.6 (%) Final Reticulocyte HGB 05/27/2023 10:31:46 30.7 29.7-37.4 (pg) Final Performing Location LAB[facility]ORY [facility] [place] - [facility] [place] [address] [facility] [address]
--- OUTSIDE RECORDS SUMMARY | 2023-08-18 01:30 | External Medical Summary | Summary of Care ---
Author Name Unknown Organization [facility] Address [address] [place] [address] Phone [phone] Care Team Providers Care Scrape Gatherer Name Role Phone Unavailable Primary Care Provider Unavailabl e Reason for Visit * Reason Comments Return Visit Encounter Details Date Type Department Care Team Description 04/29/2023 Office Visit Gynecology/Obstetrics [address] [place] [address] Saritha Carvajal CRNP [address] [place] [address] Supervision of other normal , antepartum*; Chlamydia infection affecting in first trimester; Tobacco use affecting , antepartum; Need for rubella vaccination; Choroid plexus cyst of fetus affecting care of mother, antepartum, single or unspecified fetus Allergies No known active allergiesdocumented as of this encounter (statuses as of 04/29/2023) Medications Medication Sig Dispensed Refills Start Date [...] as of this encounter (statuses as of 04/29/2023) Active Problems Problem Noted Date Choroid plexus [...] as of this encounter (statuses as of 04/29/2023) Resolved Problems Problem Noted Date Resolved Date [...] as of this encounter (statuses as of 04/29/2023) Immunizations Name Administration Dates Next Due HPV [...] Sign Reading Time Taken Comments Blood Pressure 100/58 04/29/2023 1:42 PM EDT Pulse - - Temperature - - Respiratory Rate - - Oxygen Saturation - - Inhaled Oxygen Concentration - - Weight 59.1 kg (130 lb 3.2 oz) 04/29/2023 1:42 P M EDT Height 162.6 cm (5' 4") 04/29/2023 1:42 PM EDT Body Mass Index 22.35 04/29/2023 1:42 PM EDT documented in this encounter Progress Notes * MANJINDER Velasquez - 04/29/2023 1:59 PM EDT 24w2d C/o foot and leg pain when working. Standing at work. Suggested new shoes, as she said her sneakersare about 4 years old. No other concerns. Baby moving well. No contractions, bleeding, or LOF. Glucola with next visit. Will need u/s in 3rd tri to assess for resolution of choroid plexus cyst. 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 Denies any other concerns. Proof of letter and CBC needs faxed to [facility]. documented in this encounter Plan of Treatment Upcoming Encounters Date Type Specialty Care Team Description 05/27/2023 Laboratory Laboratory [address] [place] [address] 05/27/2023 Office Visit Gynecology Obstetrics Saritha Carvajal CRNP [address] [place] [address] Scheduled Orders Name Type Priority Associated Diagnoses Orde r Schedule 50-G GESTATIONAL GLUCOSE, 1 HOUR Lab Routine Supervision of other normal , antepartum Expected: 05/29/2023 (Approximate), Expires: 04/29/2024 CBC WITH WBC DIFFERENTIAL AND ANEMIA REFLEX WORKUP Lab Routine Supervision of other normal , antepartum Expected: 05/29/2023 (Approximate), Expires: 04/29/2024 SYPHILIS ANTIBODY SCREEN WITH REFLEX TO RPR Lab Routine Supervision of other normal , antepartum Expected: 05/29/2023 (Approximate), Expires: 04/29/2024 Health Maintenance Due Date Last Done Comments [...] 06/14/2014, 04/13/2014 MENINGOCOCCAL (MENACTRA/MENVEO) Completed , 09/14/2011 Hepatitis C Screening Completed 01/21/2023 , 01/21/2023, 01/21/2023 documented as of this encounter Medical Devices Not on filedocumented as of this encounter Visit Diagnoses Diagnosis Supervision of other normal , antepartum- Primary Chlamydia infection affecting in first trimester Tobacco use affecting , antepartum Need for rubella vaccination Need for prophylactic vaccination and inoculation against rubella alone Choroid plexus cyst of fetus affecting care of mother, antepartum, single or unspecified fetus documented in this encounter
--- OUTSIDE RECORDS SUMMARY | 2023-08-18 01:30 | External Medical Summary | Summary of Care ---
Author Name Unknown Organization [facility] Address [address] [place] [address] Phone [phone] Care Team Providers Care C D Reactor Operator Name Role Phone Unavailable Primary Care Provider Unavailabl e Reason for Visit * Reason Comments Return Visit Encounter Details Date Type Department Care Team Description 05/27/2023 Office Visit Gynecology/Obstetrics [address] [place] [address] Saritha Carvajal CRNP [address] [place] [address] Supervision of other normal , antepartum*; Chlamydia infection affecting in third trimester; complicated by tobacco use in third trimester; Need for rubella vaccination; Choroid plexus cyst [...] Reading Time Taken Comments Blood Pressure 102/60 05/27/2023 9:32 AM EDT Pulse - - Temperature - - Respiratory Rate - - Oxygen Saturation - - Inhaled Oxygen Concentration - - Weight 61.5 kg (135 lb 8 oz) 05/27/2023 9:32 AM EDT Height 162.6 cm (5' 4") 05/27/2023 9:32 AM EDT Body Mass Index 23.26 05/27/2023 9:32 AM EDT documented in this encounter Progress Notes * MANJINDER Velasquez - 05/27/2023 9:50 AM EDT 28w2d Feeling well overall. Baby moving well. No regular contractions, no bleeding or LOF. Glucola today, declines TDAP and flu. Wants breast pump rx faxed. MANJINDER Velasquez * Emma Holguin LPN - 05/27/2023 9:38 AM EDT 28w2d Pt denies any concerns. Declines tdap/flu documented in this encounter Plan of Treatment Upcoming Encounters Date Type Specialty Care Team Description 05/29/2023 Imaging Radiology 06/11/2023 Office Visit Gynecology Obstetrics Saritha Carvajal CRNP [address] [place] [address] Scheduled Orders Name Type Priority Associated Diagnoses Orde r Schedule US PREG FOLLOW-UP EACH FETUS Medical Imaging Routine Choroid plexus cyst of fetus affecting care of mother, antepartum, single or unspecified fetus Expected: 05/27/2023, Expires: 06/27/2024 Health Maintenance Due Date Last Done Comments [...] , antepartum- Primary Chlamydia infection affecting in third trimester complicated by tobacco use in third trimester Need for rubella vaccination Need for prophylactic vaccination and inoculation against rubella alone Choroid plexus cyst of fetus affecting care of mother, antepartum, single or unspecified fetus documented in this encounter
--- OUTSIDE RECORDS SUMMARY | 2023-08-18 01:30 | External Medical Summary | Summary of Care ---
Author Name Unknown Organization [facility] Address [address] [place] [address] Phone [phone] Care Team Providers Care Service Delivery Consultant Name Role Phone Unavailable Primary Care Provider Unavailabl e Reason for Referral * Evaluate & Treat - Unlimited Visits (Within 10 days (routine)) - Pending Review Specialty Diagnoses / Procedures Referred By Contcolleen t Referred To Contact Pharmacist / Pharmacy Diagnoses AARON (iron deficiency anemia) Saritha Carvajal CRNP [address] [place] [address] Referral ID Status Reason Start Date Expiration Date Visits Requested Visits Authorized [id number] Pending Review Specialty Services Required [phone] Question Answer Referral Priority Within 10 days (routine) Where should this appointment be scheduled? 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 10/01/2019 Shelli Tubbs RN 10/01/2019 [...] aware I sent rx to [facility] in [place] for Vitamin B12 per blood management recommendation. Please picking supervisor and take daily. * Telephone Encounter - Tushar Villela RN - 05/30/2023 9:38 AM EDT Recommend IV iron per OB MTM protocol. Patient agreeable, prefers infusion at [facility]. documented in this encounter Plan of Treatment Upcoming Encounters Date Type Specialty Care Team Description 06/11/2023 Office Visit Gynecology Obstetrics Saritha Carvajal CRNP [address] [facility] [place] [address] Scheduled Referrals Name Type Priority Associated Diagnoses [...]
--- OUTSIDE RECORDS SUMMARY | 2023-08-18 01:30 | External Medical Summary | Summary of Care ---
Author Name Unknown Organization [facility] Address [address] [place] [address] Phone [phone] Care Team Providers Care Protection Specialist Name Role Phone Unavailable Primary Care Provider Unavailabl e Reason for Visit * Reason Comments Return Visit Encounter Details Date Type Department Care Team Description 05/27/2023 Office Visit Gynecology/Obstetrics [address] [place] [address] Alcon Carvajal CRNP [address] [place] [address] Supervision of other normal , antepartum*; Chlamydia infection affecting in third trimester; complicated by tobacco use in third trimester; Need for rubella vaccination; Choroid plexus cyst of fetus affecting care of mother, antepartum, single or unspecified fetus Allergies No known active allergiesdocumented as of this encounter (statuses as of 05/28/2023) Medications Medication Sig Dispensed Refills Start Date [...] as of this encounter (statuses as of 05/28/2023) Active Problems Problem Noted Date Choroid plexus [...] as of this encounter (statuses as of 05/28/2023) Resolved Problems Problem Noted Date Resolved Date [...] as of this encounter (statuses as of 05/28/2023) Immunizations Name Administration Dates Next Due DTaP [...] concerns. Declines tdap/flu documented in this encounter Miscellaneous Notes * Addendum Note - MANJINDER Velasquez - 05/28/2023 9:49 AM EDTAddended by: ALCON CARVAJAL on: 05/28/2023 09:49 AM Modules accepted: Orders documented in this encounter Plan of Treatment Upcoming Encounters Date Type Specialty Care Team Description 05/29/2023 Imaging Radiology 06/11/2023 Office Visit Gynecology Obstetrics Alcon Carvajal CRNP [address] [place] [address] Scheduled Orders Name Type Priority Associated Diagnoses [...]
--- OUTSIDE RECORDS SUMMARY | 2023-08-18 01:30 | External Medical Summary ---
Author Name Unknown Address Unknown Organization K01:LABORATORY [facility] [place] - [address] [place] [address] Laboratory Report Ordering Provider Test Date Status ELIZABETH RONDON 05/27/2023 10:31:46 Final Observation Date Value Abnormality Reference (Units ) Status Vitamin B12 05/27/2023 10:31:46 [phone] (pg/mL) Final Performing Location LAB[facility]ORY [facility] [place] - [address] [place] [address]
--- OUTSIDE RECORDS SUMMARY | 2023-08-18 01:30 | External Medical Summary ---
Author Name Unknown Address Unknown Organization K01:[facility] [facility] [place] [address] [place] [address] Laboratory Report Ordering Provider Test Date Status ELIZABETH RONDON 05/27/2023 10:31:46 Final Observation Date Value Abnormality Reference (Units ) Status Ferritin 05/27/2023 10:31:46 9 Below low normal 13- 150 (ng/mL) Final Performing Location [facility] [place] [address] [place] [address]
--- OUTSIDE RECORDS SUMMARY | 2023-08-18 01:30 | External Medical Summary ---
Author Name Unknown Address Unknown Organization K01:[facility] [place] [address] [place] [address] Laboratory Report Ordering Provider Test Date Status ELIZABETH RONDON 05/27/2023 10:31:46 Final Observation Date Value Abnormality Reference (Units ) Status TSH 05/27/2023 10:31:46 1.55 0.27-4.20 (uIU/mL) Final Performing Location LABORATORY C - [address] [place] [address]
--- OUTSIDE RECORDS SUMMARY | 2023-08-18 01:31 | External Medical Summary | Summary of Care ---
Author Name Unknown Organization [facility] Address [address] [place] [address] Phone [phone] Care Team Providers Care Body Finisher Name Role Phone Unavailable Primary Care Provider Unavailabl e Reason for Visit * Reason Comments Return Visit Encounter Details Date Type Department Care Team Description 03/29/2023 Office Visit Gynecology/Obstetrics Ruthann Ortiz [address] [place] [address] Mitali Haque PA-C [address] [place] [address] Supervision of other normal , antepartum*; Chlamydia infection affecting in second trimester; complicated by tobacco use in second trimester; Need for rubella vaccination Allergies No known active allergiesdocumented as of this encounter (statuses as of 03/29/2023) Medications Medication Sig Dispensed Refills Start Date [...] as of this encounter (statuses as of 03/29/2023) Active Problems Problem Noted Date Chlamydia infection complicating pregnan cy 01/22/2023 Overview: [...] as of this encounter (statuses as of 03/29/2023) Resolved Problems Problem Noted Date Resolved Date [...] as of this encounter (statuses as of 03/29/2023) Immunizations Name Administration Dates Next Due HPV [...] Sign Reading Time Taken Comments Blood Pressure 88/52 03/29/2023 11:03 AM EDT Pulse - - Temperature - - Respiratory Rate - - Oxygen Saturation - - Inhaled Oxygen Concentration - - Weight 59.4 kg (131 lb) 03/29/2023 11:03 AM EDT Height 162.6 cm (5' 4") 03/29/2023 11:03 AM EDT Body Mass Index 22.49 03/29/2023 11:03 AM EDT documented in this encounter Progress Notes * Mitali Haque PA-C - 03/29/2023 11:31 AM EDT 19w6d Had anatomy today, final report pending. Counseled on MSAFP, pt would like to verify insurance coverage prior to completing. Reviewed needs to complete before 23 weeks GA. She will notify office if she desires testing. Seen at [facility] on 2-3 days ago for right sided flank pain, n/v and chills. Symptoms started a few days prior then increased in intensity. Found to have mild hydronephrosis, UTI and presence of urethralstone could not be ruled out. OB (Dr. Cerna) and Urology consulted. Pt treated with fluid and ABX and clinically improved and discharged. She denies any further symptoms. Continues PO ABX keflex, just started 2 days ago. Has follow up appointment with PCP on Saturday. Recommend she keep this appointment d/t concern for stone at time of hospital stay. Denies leaking/bleeding/contractions. + quickening RTC in 4 weeks Mitali Haque PA-C documented in this encounter Nursing Notes * Samara Jameson LPN - 03/29/2023 11:14 AM EDT 19w6d Anatomy scan today. Was in the ER, admitted to [facility] with right sided flank pain, n/v, chills. Dx with UTI and hydronephrosis. Feels much improvement in sx today. documented in this encounter Plan of Treatment Upcoming Encounters Date Type Specialty Care Team Description 04/01/2023 Office Visit Family Medicine Jamil Angel MD [address] [place] [address] [place] [address] 04/29/2023 Office Visit Gynecology Obstetrics Backer, MANJINDER Duncan [address] [facility] [place] [address] Health Maintenance Due Date Last Done Comments COVID-19 Vaccine (#1) 03/16/2000 Pneumococcal Vaccine: Pediat rics (0 to 5 Years) and At-Risk Patients (6 to 64 Years) (1 - PCV) 2005 Depression Screening, Annual for Pts 12 and Over 04/11/2017 04/11/2016 Influenza Vaccine (FLU shot) (#1) 2023 Pap Smear 02/24/2024 02/23/2021 Gonorrhea / Chlamydia Screen 02/28/202407/2023, 01/21/2023, 02/23/2021, Additional history exists DTaP,Tdap,and Td Vaccines (8 - Td or Tdap) 07/21/2031 07/21/2021, 09/14/2011, 08/29/2004, Additional history exists Hepatitis B Completed 08/01/2000, 11/17, 1999 GARDASIL-HPV IMMUNIZATION SERIES Completed 10/18/2014, 06/14/2014, 04/13/2014 MENINGOCOCCAL (MENACTRA/MENVEO) Completed 6, 09/14/2011 Hepatitis C Screening Completed 01/21/2023 , 01/21/2023, 01/21/2023 documented as of this encounter Medical Devices Not on filedocumented as of this encounter Visit Diagnoses Diagnosis Supervision of other normal , antepartum- Primary Chlamydia infection affecting in second trimester complicated by tobacco use in second trimester Need for rubella vaccination Need for prophylactic vaccination and inoculation against rubella alone documented in this encounter
--- OUTSIDE RECORDS SUMMARY | 2023-08-18 01:31 | External Medical Summary | Summary of Care ---
Author Name Unknown Organization [facility] Address [address] [place] [address] Phone [phone] Care Team Providers Care Rate Setter Name Role Phone Unavailable Primary Care Provider Unavailabl e Reason for Visit * Reason Onset Date Comments Test Results 03/29/2023 Unexpected or In determinate Result Encounter Details Date Type Department Care Team Description 03/29/2023 Telephone Laboratory, [place] [address] [place] [address] Saritha Carvajal CRNP [address] [place] [address] Test Results (Unexpected or Indeterminate ... Allergies No known active allergiesdocumented as of this encounter (statuses as of 04/01/2023) Medications Medication Sig Dispensed Refills Start Date [...] as of this encounter (statuses as of 04/01/2023) Active Problems Problem Noted Date Choroid plexus [...] as of this encounter (statuses as of 04/01/2023) Resolved Problems Problem Noted Date Resolved Date [...] due date letter for pt to attend [facility] 04/14/2020 Shelli Tubbs RN 04/14/2020 Problem [...] as of this encounter (statuses as of 04/01/2023) Immunizations Name Administration Dates Next Due DTaP - Dipth/Tet/Acell Pertussis 005,05/14/2001,05/30/2000,03/05,1999 HIB Hep B - HIB Hepatitis B (Comvax) 1999 HPV Vaccine, 4-Valent 10/18/2014,06/14/2014,03/20 Haemophilus B (HIB) 09/18/2000,05/30/2000,1999 Hepatitis B Vaccine 08/01/2000,1999 IPV - Polio [...] encounter Miscellaneous Notes * Telephone Encounter - Josie Gates LPN - 04/01/2023 11:05 AM EDT Spoke with pt she verbalized understanding * Telephone Encounter - MANJINDER Dinh - 04/01/2023 9:23 AM EDT Reviewed. Please notify pt - chorioid plexus cyst. This is a very common finding in . With low risk Qnatal testing, and therefore low risk of chromosome abnormalities, it is likely a variant of normal. Most resolve in 3rd trimester, will plan to repeat and u/s then. MANJINDER Mendoza * Telephone Encounter - TILA Copeland - 03/29/2023 4:17 PM EDT 104Hello- The radiologist discovered an unexpected or indeterminate finding on Salina Turcios ([id number]) and asks that you review the following report. Study Type:US PREG SINGLE/1ST GEST, 14 WEEKS OR LATER Date of Study: 03/29/2023 IMPRESSION 1. Single live fetus with interval growth within normal limits utilizing JOSE from initial scan. 2. Anatomy demonstrated, as above. Right choroid plexus cyst. Please respond to this encounter to acknowledge receipt of this message and take responsibility to ensure this report is reviewed. Thank you, TILA Copeland Client Service Rep [facility] [place] documented in this encounter Plan of Treatment Upcoming Encounters Date Type Specialty Care Team Description 04/01/2023 Office Visit Family Medicine Jamil Angel MD [address] [place] [address] [place] [address] 04/29/2023 Office Visit Gynecology Obstetrics Backer, MANJINDER Duncan [address] [place] [address] Health Maintenance Due Date Last Done Comments [...]
--- OUTSIDE RECORDS SUMMARY | 2023-08-18 01:31 | External Medical Summary | Summary of Care ---
Author Name Unknown Organization [facility] Address [address] [place] [address] Phone [phone] Care Team Providers Care Kayaking Instructor Name Role Phone Unavailable Primary Care Provider Unavailabl e Reason for Visit * Reason Comments Hospital Follow-Up Encounter Details Date Type Department Care Team Description 04/01/2023 Office Visit Family Medicine [address] [phone] Jamil Angel MD [address] [place] [address] [place] [address] Acute cystitis without hematuria*; 20 weeks gestation of Allergies No known active allergiesdocumented as of [...] 04/01/2023) Immunizations Name Administration Dates Next Due HPV [...] Reading Time Taken Comments Blood Pressure 100/60 04/01/2023 3:55 PM EDT Pulse 97 04/01/2023 3:55 PM EDT Temperature 36.7 C (98 F) 04/01/2023 3:55 PM EDT Respiratory Rate 16 04/01/2023 3:55 PM EDT Oxygen Saturation 98% 04/01/2023 3:55 PM EDT Inhaled Oxygen Concentration - - Weight 58.5 kg (129 lb) 04/01/2023 3:55 PM EDT Height - - Body Mass Index 22.14 03/29/2023 11:03 AM EDT documented in this encounter Progress Notes * Jamil Angel MD - 04/01/2023 3:57 PM EDT Subjective: HPI: Salina Turcios is a 22 year old female seen for Pt was in the hospital from 03/26-03/27 1. UTI with Hydronephrosis - Hydronephrosis was suspected due to Gravid uterus vs possible kidney stone - pt's symptoms improved with IV ceftriaxone - discharged on Keflex 500mg BID US abd: IMPRESSION: No evidence of cholecystitis or cholelithiasis Right-sided hydroureteronephrosis which could be due to the gravid uterus or ureteric stone. Cr: 0.43 UCx: E.coli pansensitive BCx: neg Today: - pt is currently 20W2D - feeling much better - denied any fever, mid back pain, hematuria - urinating well - still taking abx --- denied any diarrhea --- eating yogurt daily - never had kidney stones in the past Patient Active Problem List Diagnosis Code Migraine with aura G43.109 Need for rubella vaccination Z23 Tobacco use complicating O99.330 Tobacco use Z72.0 Supervision of other normal , antepartum Z34.80 Chlamydia infection complicating O98.819, A74.9 Choroid plexus cysts, , affecting care of mother, antepartum O35.03X0 Current Outpatient Medications Medication Sig Dispense Refill Plus 27-1 MG Oral Tablet Take 1 Tablet by mouth in the morning. 100 Tablet 3 Cephalexin 500 MG Oral Capsule (Keflex) 1 Capsule in the morning and 1 Capsule in the evening. No current facility-administered medications for this visit. Past Medical History: Diagnosis Date Anxiety Migraine with aura 09/24/2008 Tobacco use Past Surgical History: Procedure Laterality Date NONE Review of patient's allergies indicates: No Known Allergies No family history on file. Social History Tobacco Use Smoking status: Every Day Packs/day: 0.25 Years: 1.00 Pack years: 0.25 Types: Cigarettes Smokeless tobacco: Never Tobacco comments: 7-8 cig/day Substance Use Topics Alcohol use: No Vaping/E-Cigarette Use Vaping/E-Cigarette Use Current Every Day User Vaping/E-Cigarette Substances Vaping/E-Cigarette Devices RECENT LABS: Results for orders placed or performed in visit on 03/28/23 CHEMISTRY-OUTSIDE Result Value Ref Range Not all results display below - see scan for full detail CREATININE-OUTSIDE LAB 0.59 (L) 0.6 - 1.2 MG/DL EGFR-OUTSIDE LAB 129.2 ML/MIN/1.73M2 POTASSIUM-OUTSIDE LAB 3.2 (L) 3.5 - 5.1 MMOL/L GLUCOSE-OUTSIDE LAB 91 70 - 99 MG/DL HOURS FASTING TRIGLYCERIDES-OUTSIDE LAB CHOLESTEROL-OUTSIDE LAB HDL-OUTSIDE LAB CHOL/HDL RATIO-OUTSIDE LAB LDL (CALCULATED)-OUTSIDE LAB LDL (DIRECT MEASURE)-OUTSIDE LAB HEMOGLOBIN, [id number] LAB PHOSPHORUS-OUTSIDE LAB PTH-OUTSIDE LAB MICROALBUMIN RATIO-OUTSIDE LAB PROTEIN, UA-OUTSIDE LAB 2+ (A) NEGATIVE HEMOGLOBIN-OUTSIDE LAB 10.4 (L) 12.0 - 16.0 G/DL ROS: -Per HPI OBJECTIVE: BP 100/60 | Pulse 97 | Temp 36.7 C (98 F) (Tympanic) | Resp 16 | Wt 58.5 kg (129 lb) | LMP 11/10/2022 (Exact Date) | SpO2 98% | BMI 22.14 kg/m | BSA 1.63 m PHYSICAL EXAM: No CVA tenderness ASSESSMENT/PLAN: Acute cystitis without hematuria (Primary) - pt is doing well - not suspecting kidney stone but will repeat BMP today to monitor the cr - advised the pt to complete the abx - BASIC METABOLIC PANEL 20 weeks gestation of - following up with OB and overall normal anatomy scan Jamil Angel MD Family medicine, [address] [address] documented in this encounter Nursing Notes * Antoinette Jones LPN - 04/01/2023 3:54 PM EDT Hospital follow up [facility] Already saw OB Bad kidney infection documented in this encounter Plan of Treatment Upcoming Encounters Date Type Specialty Care Team Description 04/29/2023 Office Visit Gynecology Obstetrics Backer, MANJINDER Duncan [address] [place] [address] Pending Results Name Type Priority Associated Diagnoses Date /Time BASIC METABOLIC PANEL Lab Routine Acute cystitis without hematuria 04/01/2023 4:14 PM EDT Health Maintenance Due Date Last Done [...] as of this encounter Visit Diagnoses Diagnosis Acute cystitis without hematuria- Primary Acute cystitis 20 weeks gestation of state, incidental documented in this encounter"
--- OUTSIDE RECORDS SUMMARY | 2023-08-18 01:31 | External Medical Summary | Summary of Care ---
Author Name Unknown Organization [facility] Address [address] [place] [address] Phone [phone] Care Team Providers Care Traffic Manager Name Role Phone Unavailable Primary Care Provider Unavailabl e Reason for Visit * Reason Onset Date Comments [facility] Note 04/29/2023 Encounter Details Date Type Department Care Team Description 04/29/2023 Telephone Gynecology/Obstetrics [facility] [address] [place] [address] Saritha Carvajal CRNP [address] [place] [address] [facility] Note Allergies No known active allergiesdocumented as of [...] Telephone Encounter - Emma Holguin LPN - 04/29/2023 1:58 PM EDT Pt requested due date verification letter, and CBC results be faxed to [facility]. Both faxed to [phone]. documented in this encounter Plan of Treatment Upcoming Encounters Date Type Specialty Care Team Description 05/27/2023 Laboratory Laboratory [address] [place] [address] 05/27/2023 Office Visit Gynecology Obstetrics Saritha Carvajal CRNP [address] [place] [address] Health Maintenance Due Date Last Done Comments [...]
--- OUTSIDE RECORDS SUMMARY | 2023-08-18 01:31 | External Medical Summary | Summary of Care ---
Author Name Unknown Organization [facility] Address [address] [place] [address] Phone [phone] Care Team Providers Care Bonding Machine Operator Name Role Phone Unavailable Primary Care Provider Unavailabl e Reason for Visit * Reason Comments Outpatient Testing Encounter Details Date Type Department Care Team Description 04/01/2023 Laboratory Laboratory [address] [place] [phone] [place] [address] Arrived Allergies No known active allergiesdocumented as of [...] Visit Gynecology Obstetrics Backer, MANJINDER Duncan [address] [place] [address] Health Maintenance Due Date Last Done Comments [...]
--- OUTSIDE RECORDS SUMMARY | 2023-08-18 01:31 | External Medical Summary | Summary of Care ---
Author Name Unknown Organization [facility] Address [address] [place] [address] Phone [phone] Care Team Providers Care Forcer Maker Name Role Phone Unavailable Primary Care Provider Unavailabl e Reason for Visit * Reason Onset Date Comments Test Results 03/29/2023 Unexpected or In determinate Result Encounter Details Date Type Department Care Team Description 03/29/2023 Telephone Laboratory, [place] [address] [place] [address] Saritha Carvajal CRNP [address] [place] [address] Test Results (Unexpected or Indeterminate ... Allergies [...] encounter Miscellaneous Notes * Telephone Encounter - Yola Rivero, TILA - 03/29/2023 4:17 PM EDT 104Hello- The radiologist discovered an unexpected or indeterminate finding on Salina Turcios ([id number]) and asks that you review the following [...] Thank you, TILA Copeland Client Service Rep [facility] [place] documented in this encounter Plan of Treatment Upcoming Encounters Date Type Specialty Care Team Description 04/01/2023 Office Visit Family Medicine Jamil Angel MD [address] [place] [address] [place] [address] 04/29/2023 Office Visit Gynecology Obstetrics Backer, MANJINDER Duncan [address] [place] [address] Health Maintenance Due Date Last Done Comments [...]
--- OUTSIDE RECORDS SUMMARY | 2023-08-18 01:31 | External Medical Summary ---
Author Name Unknown Address Unknown Organization K01:[place] [place] [facility] [place] [address] [facility] [address] [place] [address] Laboratory Report Ordering Provider Test Date Status NEREYDA DÍAZ 04/01/2023 16:14:24 Anali l Observation Date Value Abnormality Reference (Units ) Status BUN 04/01/2023 16:14:24 9 6-20 (mg/dL) Final Creatinine 04/01/2023 16:14:24 0.5 0.5-1.0 (mg/dL) Final Glomerular filtration rate/1.73 sq M.predicted [Volume Rate/Area] in Serum, Plasma or Blood by Creatinine-based formula (CKD-EPI) 04/01/2023 16:14:24 >90 >=60 (mL/min) Final eGFR is calculated based on the CKD-EPI 2020 equation SODIUM 04/01/2023 16:14:24 138 135-146 (m mol/L) Final Potassium 04/01/2023 16:14:24 3.9 3.5-5.1 (m mol/L) Final Cl 04/01/2023 16:14:24 106 98-107 (mm ol/L) Final CO2 04/01/2023 16:14:24 20 Below low normal 22- 32 (mmol/L) Final Anion gap 04/01/2023 16:14:24 12 7-15 (mmol /L) Final Glucose 04/01/2023 16:14:24 82 70-120 (mg /dL) Final Calcium 04/01/2023 16:14:24 9.1 8.4-10.2 ( mg/dL) Final Performing Location [place] [place] [facility] [place] [address] [place] [address]
--- OUTSIDE RECORDS SUMMARY | 2023-08-18 01:31 | External Medical Summary | Summary of Care ---
Author Name Unknown Organization [facility] Address [address] [place] [address] Phone [phone] Care Team Providers Care Cnc Maintenance Technician Name Role Phone Unavailable Primary Care Provider Unavailabl e Reason for Visit * Reason Onset Date Comments Test Results 03/29/2023 Unexpected or In determinate Result Encounter Details Date Type Department Care Team Description 03/29/2023 Telephone Laboratory, [place] [address] [place] [address] Saritha Carvajal CRNP [address] [place] [address] Test Results (Unexpected or Indeterminate ... Allergies [...] due date letter for pt to attend [facility] 04/14/2020 Shelli Tubbs RN 04/14/2020 [...] encounter Miscellaneous Notes * Telephone Encounter - MANJINDER Dinh - [...] unexpected or indeterminate finding on Salina Turcios ([id number]) and asks that you review the following [...] reviewed. Thank you, TILA Copeland Client Service [facility] documented in this encounter Plan of Treatment Upcoming Encounters Date Type Specialty Care Team Description 04/01/2023 Office Visit Family Medicine Jamil Angel MD [address] [place] [address] [place] [address] 04/29/2023 Office Visit Gynecology Obstetrics Backer, MANJINDER Duncan [address] [place] [address] Health Maintenance Due Date Last Done Comments [...]
--- OUTSIDE RECORDS SUMMARY | 2023-08-18 01:31 | External Medical Summary | Summary of Care ---
Author Name Unknown Organization [facility] Address [address] [place] [address] Phone [phone] Care Team Providers Care Law Enforcement Instructor Name Role Phone Unavailable Primary Care Provider Unavailabl e Reason for Visit * Reason Onset Date Comments Test Results 03/29/2023 Unexpected or In determinate Result Encounter Details Date Type Department Care Team Description 03/29/2023 Telephone Laboratory, [place] [address] [place] [address] Saritha Carvajal CRNP [address] [place] [address] Test Results (Unexpected or Indeterminate ... Allergies [...] unexpected or indeterminate finding on Salina Turcios ([id number]) and asks that you review the following [...] Thank you, TILA Copeland Client Service Rep [facility] documented in this encounter Plan of Treatment Upcoming Encounters Date Type Specialty Care Team Description 04/01/2023 Office Visit Family Medicine Jamil Angel MD [address] [place] [address] [place] [address] 04/29/2023 Office Visit Gynecology Obstetrics Backer, MANJINDER Duncan [address] [place] [address] Health Maintenance Due Date Last Done Comments [...]
--- OUTSIDE RECORDS SUMMARY | 2023-08-18 01:32 | External Medical Summary | Summary of Care ---
Author Name Unknown Organization [facility] Address [address] [place] [address] Phone [phone] Care Team Providers Care Shear Operator Helper Name Role Phone Unavailable Primary Care Provider Unavailabl e Reason for Visit * Reason Comments Return Visit Encounter Details Date Type Department Care Team Description 02/27/2023 Office [facility] [address] [place] [address] Saritha Carvajal CRNP [address] [place] [address] Supervision of other normal , antepartum*; Chlamydia infection affecting in first trimester; Tobacco use affecting , antepartum; Need for rubella vaccination Allergies No known active allergiesdocumented as of this encounter (statuses as of 02/27/2023) Medications Medication Sig Dispensed Refills Start Date End Date Status Plus 27-1 MG Oral TabletIndications:Enc ounter for supervision of other normal in first trimester Take 1 Tablet by mouth in the morning. 100 Tablet 3 01/21/2023 Active documented as of this encounter (statuses as of 02/27/2023) Active Problems Problem Noted Date Chlamydia infection [...] as of this encounter (statuses as of 02/27/2023) Resolved Problems Problem Noted Date Resolved Date [...] any current needs or questions 05/10/2020 Karen oRd RN 05/10/2020 Menstruation, irregular 07/04/2016 07/04/20 21 Routine child health exam 10/13/20022010 documented as of this encounter (statuses as of 02/27/2023) Immunizations Name Administration Dates Next Due HPV [...] Sign Reading Time Taken Comments Blood Pressure 98/52 02/27/2023 1:54 PM EDT Pulse - - Temperature - - Respiratory Rate - - Oxygen Saturation - - Inhaled Oxygen Concentration - - Weight 57 kg (125 lb 9.6 oz) 02/27/2023 1:54 PM EDT Height 162.6 cm (5' 4") 02/27/2023 1:54 PM EDT Body Mass Index 21.56 02/27/2023 1:54 PM EDT documented in this encounter Progress Notes * MANJINDER Velasquez - 02/27/2023 2:23 PM EDT 15w4d No concerns. Awaiting Qnatal results, had this drawn less than a week ago. Pt and FOB treated for chlamydia, FARRAH today. Anatomy u/s with next visit. MANJINDER Velasquez documented in this encounter Nursing Notes * LOUISE Mcgee - 02/27/2023 2:02 PM EDT 15w4d Pt denies any concerns documented in this encounter Plan of Treatment Upcoming Encounters Date Type Specialty Care Team Description 03/20/2023 Office Visit Family Medicine Jamil Angel MD [address] [place] [address] [place] [address] 03/29/2023 Imaging Radiology 03/29/2023 Office Visit Gynecology Obstetrics Mitali Haque PA-C [address] [place] [address] Scheduled Orders Name Type Priority Associated Diagnoses Orde r Schedule US PREG SINGLE/1ST GEST, 14 WEEKS OR LATER Medical Imaging Routine Supervision of other normal , antepartum Expected: 03/30/2023 (Approximate), Expires: 03/30/2024 CHLAMYDIA TRACHOMATIS AND NEISSERIA GONORRHOEAE, AMPLIFIED PROBE Lab Routine Chlamydia infection affecting in first trimester Ordered: 02/27/2023 Health Maintenance Due Date Last Done Comments COVID-19 Vaccine (#1) 03/16/2000 Pneumococcal Vaccine: Pediat rics (0 to 5 Years) and At-Risk Patients (6 to 64 Years) (1 - PCV) 2005 Depression Screening, Annual for Pts 12 and Over 04/11/2017 04/11/2016 Influenza Vaccine (FLU shot) (#1) 2023 Gonorrhea / Chlamydia Screen 01/22/202412/2022, 02/23/2021, 10/01/2019, Additional history exists Pap Smear 02/24/2024 02/23/2021 DTaP,Tdap,and Td Vaccines (8 - Td or [...]
--- OUTSIDE RECORDS SUMMARY | 2023-08-18 01:32 | External Medical Summary | Summary of Care ---
Author Name Unknown Organization [facility] Address [address] [place] [address] Phone [phone] Care Team Providers Care Wire Lather Name Role Phone Unavailable Primary Care Provider Unavailabl e Reason for Visit * Reason Comments Outpatient Testing Encounter Details Date Type Department Care Team Description 02/22/2023 Laboratory Laboratory [address] [place] [phone] [address] [place] [address] Supervision of other normal , antepartum Allergies No known active allergiesdocumented as of this encounter (statuses as of 02/23/2023) Medications Medication Sig Dispensed Refills Start Date End Date Status Plus 27-1 MG Oral TabletIndications:Enc ounter for supervision of other normal in first trimester Take 1 Tablet by mouth in the morning. 100 Tablet 3 01/21/2023 Active documented as of this encounter (statuses as of 02/23/2023) Active Problems Problem Noted Date Chlamydia infection [...] as of this encounter (statuses as of 02/23/2023) Resolved Problems Problem Noted Date Resolved Date [...] due date letter for pt to attend [facility] 10/01/2019 Shelli Tubbs RN 10/01/2019 [...] as of this encounter (statuses as of 02/23/2023) Immunizations Name Administration Dates Next Due HPV [...] Encounters Date Type Specialty Care Team Description 02/27/2023 Office Visit Gynecology Obstetrics Saritha Carvajal CRNP [address] [place] [address] 03/20/2023 Office Visit Family Medicine Jamil Angel MD [address] [place] [address] [place] [address] Pending Results Name Type Priority Associated Diagnoses Date /Time QNATAL ADVANCED (QUEST) Lab Routine Supervision of other normal , antepartum 02/22/2023 10:55 AM EDT Health Maintenance Due Date Last [...]
--- OUTSIDE RECORDS SUMMARY | 2023-08-18 01:32 | External Medical Summary | Summary of Care ---
Author Name Unknown Organization [facility] Address [address] [place] [address] Phone [phone] Care Team Providers Care Secondary Spanish Teacher Name Role Phone Unavailable Primary Care Provider Unavailabl e Reason for Visit * Reason Onset Date Comments Hospital Follow-Up 03/28/2023 Encounter Details Date Type Department Care Team Description 03/28/2023 Telephone Ancillary [address] [place] [phone] Nkechi Leigh, RN Hospital Follow-Up Allergies No known active allergiesdocumented as of this encounter (statuses as of 03/28/2023) Medications Medication Sig Dispensed Refills Start Date [...] as of this encounter (statuses as of 03/28/2023) Active Problems Problem Noted Date Chlamydia infection [...] as of this encounter (statuses as of 03/28/2023) Resolved Problems Problem Noted Date Resolved Date [...] as of this encounter (statuses as of 03/28/2023) Immunizations Name Administration Dates Next Due DTaP [...] encounter Miscellaneous Notes * Telephone Encounter - Jamil Angel MD - 03/28/2023 4:25 PM EDT Noted and thanks * Telephone Encounter - Nkechi Leigh RN - 03/28/2023 3:55 PM EDT Transitions of Care Note Reason for Referral:Recent Admission Phone visit for follow up: farrah Admitted to: [facility], Date: 03/26/23 Discharged to: home, Date: 03.27.23 Diagnosis driving hospitalization: UTI, 19 weeks normal Source/Contact: Patient SUBJECTIVE Consent: Verbal consent for review of hospital discharge: Yes REVIEW OF SYSTEMS Patient/Other Reports: Current patient/caregiver problems or concerns: pt states she does have a h/a CV: Denies problems Pulmonary: Denies problems Chills/Sweats/Fever:Denies chills/sweats Denies fever Appetite:Denies problems such as nausea, vomiting, burning, decreased appetite Current diet: reg and pt to drink more fluids. Denies any right upper quad pain, Bowel: denies problems Bladder: denies problems, no burning Wound (If applicable): N/A Pain:Denies Sleep:Denies problems FUNCTIONAL STATUS: ADL'S: Needs Assistance With:N/A as pt is independent IADL'S: Needs Assistance With:N/A as pt is independent Cognitive and Mental Health: denies problems, alert and oriented x 3 and able to communicate, understand instructions, process information. MEDICATION RECONCILIATION Medications: Reports all medications taken as prescribed. OBJECTIVE ASSESSMENT Medication Risk Assessment: No risks identified Did patient fail outpatient treatment? No Discharge instructions available for review? Yes PLAN Symptom Monitoring Interventions:Member/caregiver education - signs and symptoms to contact PrimaryCare (DO NOT DELETE-Three celaya symptoms patient is to report to PCP) 1. Worsening headache after pushing fluids or caffeine 2. Blurred vision 3. Right upper quadrant pain Channel Marketing CoordinatorCamouflage Specialist of Care interventions/Action Plan: 5 - 7 day follow-up with PCP in place - Date: 04.01.23 Educated on role of FARRAH completed with patient/caregiver. Educated patient/caregiver on patient right to have input on FARRAH plan of care. Verification of Home Health/DME if indicated: NO Identified Care Gaps: Yes Care Gaps closed this call: Transition of Care follow-up communication Re-evaluation of Plan of Care and progress towards goals achievement: Patient education this visit: Verbal, pt is scheduled for tomorrow with ob, pt to push her fluids and try to drink some caffeine.Pt denies any blurred vision or RUQ pain. this is pt 3rd preg and no h/o high BP. pt to call OB if sx worsen. pt states yesterday they were more concerned with low BP, she has never had any problems with preeclampsia. Pt ok with advice, I counseled her if she could have someone watch the kids whileshe goes and rest, but pt does not have anyone at home to help. Pt ok with advice Plan to follow-up as previously scheduled, instructed to call Primary Care Provider with change in symptoms or as needed before next follow-up, verbalizes understanding and agrees with plan. Nkechi Leigh RN documented in this encounter Plan of Treatment Upcoming Encounters Date Type Specialty Care Team Description 03/29/2023 Imaging Radiology 03/29/2023 Office Visit Gynecology Obstetrics Mitali Haque PA-C [address] [place] [address] 04/01/2023 Office Visit Family Medicine Jamil Angel MD [address] [place] [address] [place] [address] Health Maintenance Due Date Last Done Comments [...]
--- OUTSIDE RECORDS SUMMARY | 2023-08-18 01:32 | External Medical Summary | Summary of Care ---
Author Name Unknown Organization [facility] Address [address] [place] [address] Phone [phone] Care Team Providers Care Dispatch Clerk Name Role Phone Unavailable Primary Care Provider Unavailabl e Reason for Visit * Reason Comments Return Visit Encounter Details Date Type Department Care Team Description 02/27/2023 [facility] [address] [place] [address] Saritha Carvajal CRNP [address] [place] [phone] Supervision of other normal , antepartum*; Chlamydia [...] resolved 2nd trimester education reviewed w/pt 06/07/2021 Shleli Tubbs RN 06/07/2021 Problem Action Taken Date [...] resolved 3rd trimester education Reviewed w/pt 08/04/2021 hSelli Tubbs RN 08/04/2021 Problem Action Taken Date [...] for pt to attend [place] 10/01/2019 Shelli Tbubs RN 10/01/2019 Problem Action Taken Date entered [...] Office Visit Family Medicine Jamil Angel MD [address] [place] [address] [place] [address] 03/29/2023 Imaging Radiology 03/29/2023 Office Visit Gynecology Obstetrics Mitali Haque PA-C [address] [place] [address] Pending Results Name Type Priority Associated Diagnoses Date /Time CHLAMYDIA TRACHOMATIS AND NEISSERIA GONORRHOEAE, AMPLIFIED PROBE Lab Routine Chlamydia infection affecting in first trimester 02/27/2023 3:01 PM EDT Scheduled Orders Name Type Priority Associated Diagnoses Orde r Schedule US PREG SINGLE/1ST GEST, 14 WEEKS OR LATER Medical Imaging Routine Supervision of other normal , antepartum Expected: 03/30/2023 (Approximate), Expires: 03/30/2024 Health Maintenance Due Date Last Done Comments [...]
--- OUTSIDE RECORDS SUMMARY | 2023-08-18 01:32 | External Medical Summary ---
Author Name Unknown Address Unknown Organization : Laboratory Report Ordering Provider Test Date Status ELIZABETH RONDON 02/22/2023 10:55:02 Final Observation Date Value Abnormality Reference (Units ) Status NUMBER OF FETUSES? 02/22/2023 10:55:02 1 Final ADVANCED MATERNAL AGE? 02/22/2023 10:55:02 NO Final ABNORMAL ROMANA? 02/22/2023 10:55:02 NO Final ABNORMAL US? 02/22/2023 10:55:02 NOT GIVEN Final PERSONAL/FAM HISTORY? 02/22/2023 10:55:02 NOT GIVEN Final INTERPRETATION 02/22/2023 10:55:02 SEE BELOW Final This specimen showed an expe cted representation of
chromosome 21, 18, and 13 material. Results were
not analyzed or reported for microdeletions. See
'Limitations' below. TRISOMY 21 (T21) 02/22/2023 10:55:02 Negative Final TRISOMY 18 (T18) 02/22/2023 10:55:02 Negative Final TRISOMY 13 (T13) 02/22/2023 10:55:02 Negative Final Y CHROMOSOME 02/22/2023 10:55:02 Detected Final Y CHR. INTERPRETATION 02/22/2023 10:55:02 SEE BELOW Final Consistent with a male fetus . SEX CHROMOSOME 02/22/2023 10:55:02 No aneuploidy Final SEX CHROMOSOME INTERP 02/22/2023 10:55:02 SEE BELOW Final No apparent abnormality was detected. See
'Limitations' below. MICRODELETION 02/22/2023 10:55:02 Opted Out Final MICRODELETION INTERP 02/22/2023 10:55:02 SEE BELOW Final Results were not analyzed or reported for
microdeletions. GESTATIONAL AGE (IN WEEKS) 02/22/2023 10:55:02 14 Final GESTATIONAL AGE (IN DAYS) 02/22/2023 10:55:02 6 Final FRACTION 02/22/2023 10:55:02 16.00% Final LABORATORY COMMENTS 02/22/2023 10:55:02 SEE BELOW Final Laboratory testing supervise d and results
monitored by Brittany Cain, Ph.D., DABMGG,
[facility]. LIMITATIONS 02/22/2023 10:55:02 SEE BELOW Final QNatal(R) Advanced is a cell -free DNA test that
screens for increased risk of certain
chromosomal abnormalities that may cause
defects, including Trisomy 21 (Down syndrome),
Trisomy 18, Trisomy 13, and certain sex chromosome
abnormalities (i.e., 45,X, 47,XXY, 47,XXX, and
47,XYY), as well as sex. In addition, if
selected as an option, QNatal(R) Advanced can
screen for certain microdeletions (i.e., 22q, 5p,
1p36, 15q, 11q, 8q, and 4p) that may cause
defects. This test does not assess the risk of
abnormalities such as neural tube defects or
ventral wall defects and should not be considered
in isolation from other clinical findings and
laboratory test results. QNatal(R) Advanced has
been validated in pregnancies that are equal to or
greater than 10 weeks gestational age.
QNatal(R) Advanced has been validated in chambers
pregnancies for the trisomies and sex chromosome
abnormalities listed above, as well as for
microdeletions, and for the determination of
sex. Sex chromosome aneuploidy analysis is only
performed in chambers pregnancies. The test has
also been validated in twin pregnancies for the
trisomies listed above and for microdeletions, but
not for the sex chromosome abnormalities due to
limited data. The test has not been validated in
higher order pregnancies (more than two) because
limited data is available.
Microdeletion screening is limited to the
specified microdeletion regions (see
'Methodology'). The Y chromosome is analyzed for
the determination of sex. The sensitivity
and specificity of sex determination
analysis may be less than that of the Trisomy 21,
18, and 13 analysis and this determination can be
confounded by vanishing twin syndrome in
pregnancies that were originally multiple
gestation pregnancies. It should be noted that
QNatal(R) Advanced is a quantitative analysis of
maternal and placental cfDNA. As a result, the
accuracy of the screening test results may be
affected by the presence of chromosome
abnormalities or microdeletions that are maternal
or confined placental in origin. An incidental
finding may be reported when the finding precludes
categorizing a targeted condition or indicates a
maternal condition. False positive findings
involving the examined chromosomes and
microdeletion regions may be due to maternal,
placental, or mosaicism, by vanishing twin
syndrome, or other unexplained causes. SPECIFICATIONS 02/22/2023 10:55:02 SEE BELOW Final Sensitivity Specificity
T21 >99.9% >99.9%
T18 >99.9% >99.9%
T13 >99.9% >99.9%
Accuracy
Y >99.9%
Performance of the QNatal Advanced
laboratory-developed test (LDT) has been
determined based on internal analytical
assessment. METHODOLOGY 02/22/2023 10:55:02 SEE BELOW Final Circulating cell-free (cf) D NA was isolated from
plasma followed by detection on a massively
parallel sequencing platform. Bioinformatic
analysis was performed to determine the
representation of chromosomes 21, 18, 13, X and Y
in circulating cell-free DNA. The representation
of sequences from the critical regions involved in
1p36 microdeletion syndrome (1p36),
Gallegos-Hirschhorn syndrome (4p), Cri-du-chat
syndrome (5p), Kong-Giedion syndrome (8p),
James syndrome (11q), Prader Willi
syndrome/Angelman syndrome (15q), and DiGeorge
syndrome (22q) is evaluated for the detection of
microdeletions if requested. This test was
developed, and its performance characteristics
have been determined by [facility]. It has not been
cleared or approved by the U.S. Food and Drug
Administration. Performance characteristics refer
to the analytical performance of the test. This
test is performed pursuant to a license agreement
with [employer].
This test was developed and its analytical
performance characteristics have been determined
by [facility]. It has not been cleared or approved by
FDA. This assay has been validated pursuant to the
CLIA regulations and is used for clinical
purposes.
Test performed by [facility]
[address],
[place] [address]

Graduate Engineer: Sophy Anne MD,PHD,ROBERTO
Test Reported by [employer],
[facility],
[address], [place]
Jonh Govea M.D., Ph.D., Director of Laboratories
, CLIA [id number] Performing Location
--- OUTSIDE RECORDS SUMMARY | 2023-08-18 01:32 | External Medical Summary | Summary of Care ---
Author Name Unknown Organization [facility] Address [address] [place] [address] Phone [phone] Care Team Providers Care Ocean Lifeguard Specialist Name Role Phone Unavailable Primary Care Provider Unavailabl e Reason for Visit * Reason Onset Date Comments Hospital Follow-Up 03/28/2023 Encounter Details Date Type Department Care Team Description 03/28/2023 Telephone Ancillary [address] [place] [phone] Nkechi Leigh, RN Hospital Follow-Up Allergies No [...] encounter Miscellaneous Notes * Telephone Encounter - Nkechi Leigh RN - 03/28/2023 3:55 PM EDT Transitions of Care Note Reason for Referral:Recent Admission Phone visit for follow up: farrah Admitted to: [facility], Date: 03/26/23 Discharged to: home, Date: 03.27.23 [...] Blurred vision 3. 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
--- OUTSIDE RECORDS SUMMARY | 2023-08-18 01:32 | External Medical Summary | Summary of Care ---
Author Name Unknown Organization [facility] Address [address] [place] [address] Phone [phone] Care Team Providers Care Elder Counselor Name Role Phone Unavailable Primary Care Provider Unavailabl e Encounter Details Date Type Department Care Team Description 03/28/2023 Orders Only Gynecology/Obstetrics Ruthann Ortiz [address] [place] [address] Saritha Carvajal CRNP [address] [address] Allergies No known active allergiesdocumented as of [...] 03/28/2023) Immunizations Name Administration Dates Next Due HPV [...] Mitali Haque PA-C [address] [place] [address] 04/01/2023 Office Visit Family Medicine Jamil Angel MD [address] [place] [address] [place] [address] Health Maintenance Due Date Last Done Comments [...] Not on filedocumented as of this encounter Procedures Procedure Name Priority Date/Time Associated Diagnosis Comments CHEMISTRY-OUTSIDE Routine 03/27/2023 documented in this encounter Results * (ABNORMAL) CHEMISTRY-OUTSIDE (03/27/2023) Not all results display below - see scan for full detail OUTSIDE LAB (SEE SCANNED REPORT) Comment:SEE SCAN; CBCD, CMP, UA, LACTATE, HCG QNT CREATININE-OUTSI DE LAB 0.59(L) 0.6 - 1.2 MG/DL OUTSIDE LAB (SEE SCANNED REPORT) EGFR-OUTSIDE LAB 129.2 ML/MIN/1.73M 2 OUTSIDE LAB (SEE SCANNED REPORT) POTASSIUM-OUTSID E LAB 3.2(L) 3.5 - 5.1 MMOL/L OUTSIDE LAB (SEE SCANNED REPORT) GLUCOSE-OUTSIDE LAB 91 70 - 99 MG/DL OUTSIDE LAB (SEE SCANNED REPORT) HOURS FASTING OUTSID E LAB (SEE SCANNED REPORT) TRIGLYCERIDES-OU TSIDE LAB OUTSIDE LAB (SEE SCANNED REPORT) CHOLESTEROL-OUTS JOAN LAB OUTSIDE LAB (SEE SCANNED REPORT) HDL-OUTSIDE LAB OUTS JOAN LAB (SEE SCANNED REPORT) CHOL/HDL RATIO-OUTSIDE LAB OUTSIDE LAB (SEE SCANNED REPORT) LDL (CALCULATED)-OUT SIDE LAB OUTSIDE LAB (SEE SCANNED REPORT) LDL (DIRECT MEASURE)-OUTSIDE LAB OUTSIDE LAB (SEE SCANNED REPORT) HEMOGLOBIN, V8S-EOEUKSO LAB OUTSIDE LAB (SEE SCANNED REPORT) PHOSPHORUS-OUTSI DE LAB OUTSIDE LAB (SEE SCANNED REPORT) PTH-OUTSIDE LAB OUTS JOAN LAB (SEE SCANNED REPORT) MICROALBUMIN RATIO-OUTSIDE LAB OUTSIDE LAB (SEE SCANNED REPORT) PROTEIN, UA-OUTSIDE LAB 2+(A) NEGATIVE OUTSIDE LAB (SEE SCANNED REPORT) HEMOGLOBIN-OUTSI DE LAB 10.4(L) 12.0 - 16.0 G/DL OUTSIDE LAB (SEE SCANNED REPORT) 03/27/2023 Saritha DUNBAR LABORATORY OUTSIDE LAB (SEE SCANNED REPORT) documented in this encounter
--- OUTSIDE RECORDS SUMMARY | 2023-08-18 01:32 | External Medical Summary | Summary of Care ---
Author Name Unknown Organization [facility] Address [address] [place] [address] Phone [phone] Care Team Providers Care Fermentation Scientist Name Role Phone Unavailable Primary Care Provider Unavailabl e Reason for Visit * Reason Onset Date Comments Hospital Follow-Up 03/28/2023 Encounter Details Date Type Department Care Team Description 03/28/2023 Telephone Anc[address] [place] [phone] Nkechi Leigh, RN Hospital Follow-Up Allergies No [...] visit for follow up: farrah Admitted to: [facility], Date: 03/26/23 Discharged to: home, Date: 03.27.23 [...] Blurred vision 3. 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
--- OUTSIDE RECORDS SUMMARY | 2023-08-18 01:32 | External Medical Summary | Summary of Care ---
Author Name Unknown Organization [facility] Address [address] [place] [address] Phone [phone] Care Team Providers Care Body Hanger Name Role Phone Unavailable Primary Care Provider Unavailabl e Reason for Visit * Reason Comments Return Visit Encounter Details Date Type Department Care Team Description 02/27/2023 [facility] [address] [place] [address] Saritha Carvajal CRNP [address] [place] [address] Supervision of other normal , antepartum*; Chlamydia infection affecting in first trimester; Tobacco use affecting , antepartum; Need for rubella vaccination Allergies No known active allergiesdocumented as of this encounter (statuses as of 02/28/2023) Medications Medication Sig Dispensed Refills Start Date End Date Status Plus 27-1 MG Oral TabletIndications:Enc ounter for supervision of other normal in first trimester Take 1 Tablet by mouth in the morning. 100 Tablet 3 01/21/2023 Active documented as of this encounter (statuses as of 02/28/2023) Active Problems Problem Noted Date Chlamydia infection [...] as of this encounter (statuses as of 02/28/2023) Resolved Problems Problem Noted Date Resolved Date [...] any current needs or questions 03/17/2020 Karen Rdo RN 03/16/2020 Problem Action Taken Date entered [...] as of this encounter (statuses as of 02/28/2023) Immunizations Name Administration Dates Next Due HPV [...] Office Visit Family Medicine Jamil Angel MD [address] [place] [address] [place] [address] 03/29/2023 Imaging Radiology 03/29/2023 Office Visit Gynecology Obstetrics Mitali Hqaue PA-C [address] [place] [address] Scheduled Orders Name Type Priority Associated Diagnoses [...] Procedure Name Priority Date/Time Associated Diagnosis Comments CHLAMYDIA TRACHOMATIS AND NEISSERIA GONORRHOEAE, AMPLIFIED PROBE Routine 02/27/2023 3:01 PM EDT Chlamydia infection affecting in first trimester documented in this encounter Results * CHLAMYDIA TRACHOMATIS AND NEISSERIA GONORRHOEAE, AMPLIFIED PROBE (02/27/2023 3:01 PM EDT) Chlamydia Trachomatis Result Negative Negative 02/28/2023 11:11 AM EDT [facility] Comment:No Chlamydia trachom atis detected by generation manager-mediated nucleic acid amplification. Neisseria Gonorrhoeae Result Negative Negative 02/28/2023 11:11 AM EDT [facility] Comment:No Neisseria gonorrh oeae detected by generation manager-mediated nucleic acid amplification. Urine Urine specimen / Unknown 02/27/2023 3:01 PM EDT 02/27/2023 3:01 PM EDT Saritha DUNBAR LAB MICRO - GENERAL ORDERABLES [facility] [address] [place] [address] documented in this encounter Visit Diagnoses Diagnosis Supervision of other normal , antepartum- Primary Chlamydia infection affecting in first trimester Tobacco use affecting , antepartum Need for rubella vaccination Need for prophylactic vaccination and inoculation against rubella alone documented in this encounter
--- OUTSIDE RECORDS SUMMARY | 2023-08-18 01:32 | External Medical Summary ---
Author Name Unknown Address Unknown Organization K01:LABORATORY [facility] - [address] [place] [address] Laboratory Report Ordering Provider Test Date Status ELIZABETH RONDON 02/27/2023 15:01:20 Final Observation Date Value Abnormality Reference (Units ) Status Chlamydia trachomatis rRNA [Presence] in Specimen by KARTHIKEYAN with probe detection 02/27/2023 15:01:20 Negative Negative Final No Chlamydia trachomatis det ected by therapist physical-mediated nucleic acid amplification. Neisseria gonorrhoeae rRNA [ Presence] in Unspecified specimen by KARTHIKEYAN with probe detection 02/27/2023 15:01:20 Negative Negative Final No Neisseria gonorrhoeae det ected by therapist physical-mediated nucleic acid amplification. Performing Location [facility] [address] [facility] [address]
[2023-08-18] MEDS ORDERED: LIDOCAINE 1% LOCAL 20 ML VIAL INFIL PRN (01:54)
[2023-08-18] MEDS ORDERED: OXYTOCIN 30 UNITS/NSS 30 UNITS/500 ML BAG IV PRN ×2 (01:54→06:33)
--- NOTE | 2023-08-18 02:02 | History & Physical Report ---
Date of Service August 18, 2023 Assessment & Plan (1) 40 weeks gestation of : Plan: Admit, routine labs Epidural Plan for AROM after Anticipate spontaneous vaginal delivery (2) History of maternal Chlamydia infection, currently in third trimester: Plan: History of chlamydia in first trimester with a negative test of cure and negative testing in the third trimester (3) Anemia affecting in third trimester: Plan: Admission H&H pending History of Present Illness Chief Complaint: Contractions Primary Care Provider: Carol Ann Carvajal Patient is 22-year-old -0-0-2 at 40 weeks and 1 day who presents to labor and delivery for ongoing contractions every 2 minutes that started at 11 PM. She presented to labor and delivery and was found to be 4-5 centimeters dilated per nursing staff. She denies any leaking fluid or vaginal bleeding. Notes good movement. Denies any headache, blurry vision, right upper quadrant epigastric pain has been complicated by anemia, history of chlamydia and first trimester that was treated with negative test of cure and negative test in the third trimester GBS negative Patient would like contraception after delivery but is unsure what type at this time Allergies Allergy/AdvReac Type Severity Reaction Status Date / Time No Known Allergies Allergy Mild Verified 08/18/23 01:33 Home Medications Medication Instructions Recorded Confirmed Type vit no.95-ferrous 1 tab PO DAILY 03/26/23 08/18/23 History fumarate 28 mg-folic acid 800 mcg tablet () Patient History Medical History Migraine Anemia Surgical History No pertinent past surgical history Social History Smoking Status: Current every day smoker Tobacco Type: Cigarettes Cigarettes Per Day: 5; Second Hand Exposure: Yes; Do You Dip or Chew Tobacco: No; Hx Alcohol Use: No Hx Substance Use: No Preferred Language: East Timorese Communication Ability: Effective Customer Account Coordinator Required: No Beliefs That Will Affect Care: None marital status: Single Current Living Situation: Family Current Living Situation Comment: 2 sons Other Information That Helps Us Care for You: No Feels Safe at Home: Yes Safety Concerns: Feels Safe At This Time Assistive Devices: None OB History -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 History of chlamydia, denies any history of other gynecological infections Physical Exam Constitutional: WD/WN, vitals as above Respiratory: normal respiratory effort, lungs clear to auscultation Gastrointestinal (Abdomen): normal bowel sounds, soft, nontender, no hepatosplenomegaly Genitourinary: Cervix checked by nursing staff: 4 to 5 cm Results & Data Vital Signs (Past 12 Hours) Vital Signs Temp Pulse Resp BP 08/18/23 01:34 36.6 C 105 H 18 115/68 08/18/23 01:32 105 H 115/68 Monitoring External Monitor heart tracing: Baseline 130, moderate variability, positive accelerations no decelerations, category 1 tracing Tocodynamometer Contractions every 2 to 3 minutes
[2023-08-18] MEDS: LACTATED RINGER'S 1,000 ML IV PRN ×2 (02:14→04:33)
[2023-08-18 02:33] LABS: Hematocrit (blood only) 39.1 % (37.0-47.0); Hemoglobin 12.9 g/dl (12.0-16.0); Mean Corpuscular Hemoglobin 28.9 pg (25.0-34.0); Mean Corpuscular Volume 87.7 fL (80.0-100.0); Mean Platelet Volume 11.9 fL (9.4-12.4); Platelet Count 165 K/uL (130-400); RDW Standard Deviation 48.4 fL (36.4-46.3); Red Blood Count 4.46 M/uL (4.20-5.40); White Blood Count 12.46 K/ul (4.8-10.8)
[2023-08-18] MEDS ORDERED: ePHEDrine sulfate 50 MG/ML AMP ONE (02:33)
[2023-08-18] MEDS ORDERED: BUPIVACAINE 0.25% PF 30 ML VIAL ONE (02:33)
[2023-08-18] MEDS ORDERED: LIDOCAINE 2%/EPINEPHRINE 1:200,000 20 ML PF ONE (02:33)
[2023-08-18] MEDS ORDERED: SODIUM CHLORIDE 0.9% PF INJ 10 ML VIAL ONE (02:33)
[2023-08-18] MEDS ORDERED: fentANYL 2 MCG/ML BUPIVacaine 0.125%-NSS 100ML BAG ONE (02:33)
[2023-08-18] MEDS ORDERED: fentaNYL citrate PF 100 MCG/2 ML VIAL ONE (02:33)
[2023-08-18] MEDS ORDERED: fentaNYL citrate PF 100 MCG/2 ML VIAL EPI PRN (03:00)
[2023-08-18] MEDS ORDERED: fentANYL 2 MCG/ML BUPIVacaine 0.125%-NSS 100ML BAG EPI PRN (03:00)
[2023-08-18] MEDS ORDERED: NALOXONE HCL 0.4 MG/1 ML VIAL/CARP IV PRN (03:00)
[2023-08-18] MEDS ORDERED: NALBUPHINE HCL 5 MG in SYRINGE 0 ML IV PRN (03:00)
[2023-08-18] MEDS ORDERED: ePHEDrine sulfate 50 MG/ML AMP IV PRN (03:00)
[2023-08-18] MEDS ORDERED: ROPIVACAINE 0.5% PF 5 MG/ML 20 ML VIAL EPI PRN (03:00)
[2023-08-18] MEDS ORDERED: ONDANSETRON INJ 2 MG/ML 2 ML VIAL IV PRN (03:00)
[2023-08-18] MEDS ORDERED: SODIUM CHLORIDE 0.9% PF INJ 10 ML VIAL EPI PRN (03:00)
[2023-08-18] MEDS ORDERED: diphenhydrAMINE 50 MG/ML VIAL IV PRN (03:00)
[2023-08-18] MEDS ORDERED: NALOXONE HCL 1 MG in SODIUM CHLORIDE 0.9% 1,000 ML IV PRN (03:00)
[2023-08-18] MEDS ORDERED: LIDOCAINE 2% MPF LOCAL 5 ML VIAL EPI PRN (03:00)
[2023-08-18] MEDS ORDERED: SODIUM CHLORIDE 0.9% PF INJ 10 ML VIAL EPI STA (03:00)
[2023-08-18] MEDS ORDERED: LIDOCAINE 2%/EPINEPHRINE 1:200,000 20 ML PF EPI STA (03:00)
[2023-08-18] MEDS ORDERED: fentaNYL citrate PF 100 MCG/2 ML VIAL EPI STA (03:00)
[2023-08-18] MEDS ORDERED: BUPIVACAINE 0.25% PF 30 ML VIAL EPI PRN (03:00)
[2023-08-18] MEDS ORDERED: BUPIVACAINE 0.25% PF 30 ML VIAL EPI STA (03:00)
--- NOTE | 2023-08-18 03:01 | Anesthesiology Consultation ---
Date of Service August 18, 2023 Assessment & Plan ASA ASA2 Proposed Anesthesia Anesthesia Type: Labor Epidural Risk / Benefits Reviewed With: PT / POA / Parent / Guardian, Accepts Plan and Informed Consent Obtained History Height/Weight Height: 5 ft 3 in Weight: 65.317 kg Allergies Allergy/AdvReac Type Severity Reaction Status Date / Time No Known Allergies Allergy Mild Verified 08/18/23 01:33 Medications Home Medications Medication Instructions Recorded Confirmed Last Taken vit no.95-ferrous 1 tab PO DAILY 03/26/23 08/18/23 08/17/23 09:00 fumarate 28 mg-folic acid 800 mcg tablet () Active Medications Generic Name Dose Route Start Last Admin Trade Name Freq PRN Reason Stop Dose Admin Lactated Ringer's 1,000 mls @ 125 mls/hr 08/18/23 01:54 08/18/23 03:09 Lr IV 08/20/23 01:53 125 mls/hr .Q8H PRN Infusion L&D Protocol Protocol Past Medical History Medical History Migraine Anemia Exercise / Class Metabolic Activity II 4-5 Yardwork/Stairs/Walk up hill Past Surgical History Surgical History No pertinent past surgical history Past Anesthesia History No Hx of Anesthesia Complications and No Family Hx of Anesthesia Complications History of PONV No Hx of PONV and No Hx of Motion Sickness Social History Smoking Status: Current every day smoker tobacco type: cigarettes Smoking cigarettes per day: 5 Do You Dip or Chew Tobacco: No Hx Alcohol Use: No Hx Substance Use: No substance use type: does not use Review of Systems denies fever/cough/ colds/ chest pain/ SOB/ TILA denies TILA Physical Exam Vital Signs Last Vital Signs Temp 36.6 C 08/18/23 01:34 Pulse 101 H 08/18/23 03:25 Resp 18 08/18/23 01:34 BP 115/71 08/18/23 03:25 Pulse Ox 96 08/18/23 03:21 ENMT Mouth: + dentures; no TMJ abnormality and no dentition abnormality Thyromental Distance: > or= 3.5 Finger Breadths Mallampati Class: II Neck neck extension not limited Respiratory normal respiratory effort; no respiratory distress Auscultation: lungs clear to auscultation bilaterally Cardiovascular Rate/Rhythm: regular rate and regular rhythm Neurologic moves all extremities Psychiatric Orientation: alert and oriented x 3 Testing Laboratory Results 08/18/23 02:03
[2023-08-18] MEDS ORDERED: HYDROCORTISONE ACETATE 25 MG SUPP PR PRN (06:33)
[2023-08-18] MEDS ORDERED: DIPHTHERIA/TETANUS/PERTUSSIS Vaccine (Tdap, Age 7+yrs) 0.5mL SYR/VL IM ONE (06:33)
[2023-08-18] MEDS ORDERED: BENZOCAINE 20% SPRY 85 APPLN/85 GM CAN EXT PRN (06:33)
--- NOTE | 2023-08-18 06:36 | Delivery Summary ---
Vaginal Delivery Summary Date of Service August 18, 2023 Vaginal Delivery Summary Delivery Note History synopsis: Patient was admitted at 4 to 5 cm mara every 2 to 3 minutes. She received an epidural for pain control and was 8 cm and then spontaneously ruptured her membranes. She then went to 9 and then complete and I was called for delivery. She received no augmentation Delivery Summary: Patient was placed in the dorsal lithotomy position. She was prepped and draped in the usual sterile fashion. Upon maternal pushing the head was delivered atraumatically followed by the anterior shoulders, posterior shoulders then the remainder of the infants body. The infant was immediately placed on mother's abdomen, dried and stimulated. Delayed cord clamping for 60 seconds was performed. The infants mouth and nose were bulb suctioned by nursing staff. A male infant was delivered at 0621, weight pending, with APGARS of 8 at 1 minute and 9 at 5 minutes. The was handed off to the awaiting nursing staff. Cord blood gases were not obtained. The placenta delivered intact with three vessel cord. Placenta was sent to pathology. Thirty units of Pitocin were added to the IV fluid and allowed to run freely. Uterine massage was performed until uterus was deemed firm. Upon inspection of the perineum, vagina and cervix were intact. Upon re-inspection the patient was hemostatic. Uterus again massaged and found to be firm. Needle and sponge counts were correct. Patient was stable and allowed to recover in L&D room. was stable and remained in room with mother in the labor and delivery unit. EBL 200mls
[2023-08-18] MEDS: IBUPROFEN 600 MG TAB PO PRN ×3 (10:57→23:10)
[2023-08-18] MEDS: PRENATAL VITAMIN 1 TAB PO SCH (10:57)
[2023-08-18] MEDS: DOCUSATE SODIUM 100 MG CAP PO SCH ×2 (10:57→19:45)
--- NOTE | 2023-08-18 12:10 | Anesthesia Procedure Note ---
Date of Service August 18, 2023 Anesthesia Post Epidural Note Vital Signs Vital Signs: Temp Pulse Resp BP Pulse Ox 37.8 C H 91 H 22 100/60 90 08/18/23 10:45 08/18/23 10:45 08/18/23 10:45 08/18/23 10:45 08/18/23 06:31 Pain Intensity Abdomen: Pain Intensity: 3 Notes Mental Status: alert / awake / arousable Nausea / Vomiting: adequately controlled Pain: adequately controlled Airway Patency, RR, SpO2: stable & adequate BP & HR: stable & adequate Hydration State: stable & adequate Neuraxial Anesthesia: was administered and sensory block is resolving Anesthetic Complications: no major complications apparent and Pt Satisfied with anesthetic care Epidural: Removed without complications and With tip intact
[2023-08-18] MEDS: ACETAMINOPHEN 325 MG TAB PO PRN (16:42)
[2023-08-18] MEDS ORDERED: GENTAMICIN CONSULT ACTIVE PRN ×2 (17:33)
[2023-08-18] MEDS ORDERED: LACTATED RINGER'S 2,000 ML IV ONE (17:46)
--- NOTE | 2023-08-18 17:46 | Obstetrical Progress Note ---
Date of Service August 18, 2023 Assessment & Plan (1) fever, current hospitalization: Due to the patient's temperature over 39 C, will do septic workup at this time Stat blood cultures, chest x-ray, urine culture, CBC, chemistry and lactate Start empiric therapy with gentamicin and clindamycin for suspected endometrial- itis Respiratory panel also obtained to rule out respiratory infections including flu, RSV and COVID-19 Patient updated at bedside about plan of care She voiced understanding and agreement with the plan. All questions answered in the room Subjective Called by nursing staff that patient had had a temperature of 39.4. She had come over from labor and delivery and was shaking, aching and cold at 02/03/1946 with a temperature 37.3 and that she was given Tylenol 650 milligrams at that time. Then she was rechecked and the fever was 39.4 centigrade Patient does not feel well, achy, feverish. Denies any heavy vaginal bleeding. Denies any shortness of breath Physical Exam Constitutional WD/WN, vitals as above Respiratory normal respiratory effort, lungs clear to auscultation Cardiovascular RRR, no murmur, no edema Gastrointestinal (Abdomen) normal bowel sounds, soft, nontender, no hepatosplenomegaly Mild tenderness to palpation on the fundus Results & Data Vital Signs (Past 12 Hours) Vital Signs Temp Pulse Pulse Resp BP BP Pulse Ox 08/18/23 16:36 37.3 C 08/18/23 14:30 36.9 C 89 20 100/60 97 08/18/23 14:00 37.1 C 08/18/23 10:45 37.8 C H 22 08/18/23 10:45 91 H 100/60 08/18/23 09:15 79 114/75 08/18/23 09:00 76 105/67 08/18/23 08:45 64 100/63 08/18/23 08:30 36.6 C 08/18/23 08:30 20 08/18/23 08:30 79 106/63 08/18/23 08:15 67 104/64 08/18/23 08:11 20 08/18/23 08:00 66 99/54 L 08/18/23 07:45 73 96/55 L 08/18/23 07:30 18 08/18/23 07:30 72 106/60 08/18/23 07:20 64 104/54 L 08/18/23 07:15 20 08/18/23 07:00 20 08/18/23 06:45 18 08/18/23 06:45 82 104/59 L 08/18/23 06:31 78 90 08/18/23 06:30 18 08/18/23 06:30 87 104/54 L 89 L 08/18/23 06:26 82 91 08/18/23 06:25 86 89 L 08/18/23 06:21 83 93 08/18/23 06:16 76 111/56 L 95 08/18/23 06:11 78 94 08/18/23 06:06 83 94 08/18/23 06:02 73 107/60 08/18/23 06:01 65 93 08/18/23 06:00 20 08/18/23 06:00 20 08/18/23 05:56 100 H 93 08/18/23 05:51 84 95 08/18/23 05:47 94 H 89 L 08/18/23 05:46 67 91 08/18/23 05:45 69 91/53 L O2 Del Method 08/18/23 16:36 08/18/23 14:30 Room Air 08/18/23 14:00 08/18/23 10:45 08/18/23 10:45 08/18/23 09:15 08/18/23 09:00 08/18/23 08:45 08/18/23 08:30 08/18/23 08:30 08/18/23 08:30 08/18/23 08:15 08/18/23 08:11 08/18/23 08:00 08/18/23 07:45 08/18/23 07:30 08/18/23 07:30 08/18/23 07:20 08/18/23 07:15 08/18/23 07:00 08/18/23 06:45 08/18/23 06:45 08/18/23 06:31 08/18/23 06:30 08/18/23 06:30 08/18/23 06:26 08/18/23 06:25 08/18/23 06:21 08/18/23 06:16 08/18/23 06:11 08/18/23 06:06 08/18/23 06:02 08/18/23 06:01 08/18/23 06:00 08/18/23 06:00 08/18/23 05:56 08/18/23 05:51 08/18/23 05:47 08/18/23 05:46 08/18/23 05:45
[2023-08-18] MEDS ORDERED: LACTATED RINGER'S 1,000 ML IV SCH (18:00)
[2023-08-18 18:14] LABS: Hematocrit (blood only) 35.3 % (37.0-47.0); Hemoglobin 11.8 g/dl (12.0-16.0); Mean Corpuscular Hemoglobin 29.1 pg (25.0-34.0); Mean Corpuscular Hgb Conc 33.4 g/dL (32.0-36.0); Mean Corpuscular Volume 86.9 fL (80.0-100.0); Mean Platelet Volume 11.9 fL (9.4-12.4); Platelet Count 111 K/uL (130-400); RDW Coefficient of Variation 14.9 % (11.5-14.5); RDW Standard Deviation 47.9 fL (36.4-46.3); Red Blood Count 4.06 M/uL (4.20-5.40); White Blood Count 8.56 K/ul (4.8-10.8)
[2023-08-18 18:32] LABS: Albumin Globulin Ratio 1.1 (0.9-2); Albumin Level 3.2 gm/dl (3.4-5.0); BUN Creatinine Ratio 13.5 (10-20); Bilirubin,Total 0.8 mg/dl (0.2-1.0); Calcium 8.6 mg/dl (8.6-10.3); Creatinine Clr Calc Pharmacy 107.5 ml/min; Est GFR (African American) 132.4 ml/min; Est GFR (Non-African American) 114.2 ml/min; Globulin 2.8 gm/dl (2.5-4.0); Potassium 3.3 mmol/L (3.5-5.1)
--- NOTE | 2023-08-18 18:32 | XRay Report ---
SINGLE VIEW CHEST CLINICAL HISTORY: Sepsis. FINDINGS: An AP, portable, upright chest radiograph is obtained. No prior studies are available for c omparison at the time of dictation. The cardiomediastinal silhouette is unremarkable. The lungs and p leural spaces are clear. No pneumothorax is seen. The bony thorax is grossly intact. IMPRESSION: No active disease in the chest. ACT 112: Negative or not required by law. Electronically signed by: Leoncio Storm M.D. 08/18/2023 6:31 PM
[2023-08-18 18:34] LABS: Basophils # (auto) 0.02 K/uL (0.00-0.20); Basophils % (auto) 0.2 %; Eosinophils # (auto) 0.03 K/uL (0.00-0.50); Eosinophils % (auto) 0.4 %; Immature Granulocytes # (auto) 0.13 K/uL (0.01-0.20); Immature Granulocytes % (auto) 1.5 %; Lymphocytes # (auto) 0.26 K/uL (1.20-3.40); Monocytes # (auto) 0.11 K/uL (0.11-0.59); Monocytes % (auto) 1.3 %; Neutrophils # (auto) 8.01 K/uL (1.40-6.50); Neutrophils % (auto) 93.6 %
[2023-08-18 18:39] LABS: Troponin I High Sensitivity 3.3 pg/ml (0-14)
[2023-08-18 19:00] LABS: Adenovirus PCR Not Detected (NotDetected); Bordetella parapertussis PCR Not Detected (NotDetected); Bordetella pertussis PCR Not Detected (NotDetected); Chlamydia pneumoniae PCR Not Detected (NotDetected); Coronavirus 229E PCR Not Detected (NotDetected); Coronavirus CoV-2 (COVID19)PCR Not Detected (NotDetected); Coronavirus HKU1 PCR Not Detected (NotDetected); Coronavirus NL63 PCR Not Detected (NotDetected); Coronavirus OC43PCR Not Detected (NotDetected); Human Metapneumovirus PCR Not Detected (NotDetected); Influenza A PCR Not Detected (NotDetected); Influenza B PCR Not Detected (NotDetected); Mycoplasma pneumoniae PCR Not Detected (NotDetected); Parainfluenza Virus 1 PCR Not Detected (NotDetected); Parainfluenza Virus 2 PCR Not Detected (NotDetected); Parainfluenza Virus 3 PCR Not Detected (NotDetected); Parainfluenza Virus 4 PCR Not Detected (NotDetected); Rhinovirus/Enterovirus PCR Not Detected (NotDetected)
[2023-08-18] MEDS: CLINDAMYCIN/D5W 900 MG/50 ML BAG IV SCH (19:00)
[2023-08-18 19:03] LABS: Respiratory Syncytial VirusPCR DETECTED (NotDetected)
[2023-08-18] MEDS: GENTAMICIN SULFATE IV SCH (19:42)
[2023-08-18] MEDS: DEXTROSE 5% IV SCH (19:42)
[2023-08-19] MEDS: CLINDAMYCIN/D5W 900 MG/50 ML BAG IV SCH ×3 (01:41→17:47)
[2023-08-19 06:50] LABS: Basophils # (auto) 0.03 K/uL (0.00-0.20); Basophils % (auto) 0.3 %; Eosinophils # (auto) 0.04 K/uL (0.00-0.50); Eosinophils % (auto) 0.4 %; Hematocrit (blood only) 32.5 % (37.0-47.0); Hemoglobin 10.7 g/dl (12.0-16.0); Immature Granulocytes # (auto) 0.17 K/uL (0.01-0.20); Immature Granulocytes % (auto) 1.5 %; Lymphocytes % (auto) 7.1 %; Mean Corpuscular Hemoglobin 29.1 pg (25.0-34.0); Mean Corpuscular Hgb Conc 32.9 g/dL (32.0-36.0); Mean Corpuscular Volume 88.3 fL (80.0-100.0); Monocytes # (auto) 0.55 K/uL (0.11-0.59); Monocytes % (auto) 4.9 %; Neutrophils # (auto) 9.64 K/uL (1.40-6.50); Neutrophils % (auto) 85.8 %; Platelet Count 108 K/uL (130-400); RDW Standard Deviation 49.1 fL (36.4-46.3); Red Blood Count 3.68 M/uL (4.20-5.40); White Blood Count 11.23 K/ul (4.8-10.8)
[2023-08-19 07:17] LABS: Creatinine Clr Calc Pharmacy 134.8 ml/min; Est GFR (African American) 149.7 ml/min; Est GFR (Non-African American) 129.2 ml/min
[2023-08-19] MEDS ORDERED: MEASLES, MUMPS & RUBELLA VIRUS VACCINE (MMR) VIAL SQ ONE (08:00)
[2023-08-19] MEDS: DOCUSATE SODIUM 100 MG CAP PO SCH ×2 (08:21→20:14)
[2023-08-19] MEDS: PRENATAL VITAMIN 1 TAB PO SCH (08:21)
[2023-08-19] MEDS: IBUPROFEN 600 MG TAB PO PRN ×3 (08:53→23:52)
--- NOTE | 2023-08-19 09:49 | Obstetrical Progress Note ---
Date of Service August 19, 2023 Subjective Ambulation: ambulating normally Voiding: no voiding problems Passing Gas:: Yes Diet Tolerance:: regular diet Lochia:: Small Feeding Type:: breast feeding Current Pain Level(1-10): 0 doing better today continue IV antibiotics one more day Physical Exam Constitutional WD/WN, vitals as above Musculoskeletal Extremities: extremities normal to inspection Skin no rashes, warm and dry Neurologic patellar DTR's 2+ bilat, sensation intact Psychiatric A+Ox3, euthymic affect Results & Data Vital Signs (Past 12 Hours) Vital Signs Temp Pulse Resp BP Pulse Ox O2 Del Method 08/19/23 04:30 36.5 C 86 16 96/58 L 95 Room Air 08/18/23 23:00 36.5 C 94 H 16 100/65 96 Room Air Laboratory Results 08/18/23 08/18/23 08/18/23 02:03 17:50 17:56 WBC 12.46 H 8.56 RBC 4.46 4.06 L Hgb 12.9 11.8 L Hct 39.1 35.3 L MCV 87.7 86.9 MCH 28.9 29.1 MCHC 33.0 33.4 RDW Std Deviation 48.4 H 47.9 H RDW Coeff of Karen 15.0 H 14.9 H Plt Count 165 111 L MPV 11.9 11.9 Immature Gran % (Auto) 1.5 Neut % (Auto) 93.6 Lymph % (Auto) 3.0 Cottle % (Auto) 1.3 Eos % (Auto) 0.4 Baso % (Auto) 0.2 Neut # (Auto) 8.01 H Lymph # (Auto) 0.26 L Cottle # (Auto) 0.11 Eos # (Auto) 0.03 Baso # (Auto) 0.02 Immature Gran # (Auto) 0.13 Sodium 135 L Potassium 3.3 L Chloride 105 Carbon Dioxide 21 Anion Gap 9 BUN 10 Creatinine 0.74 Est Cr Clr Drug Dosing 107.5 Est GFR ( Amer) 132.4 Est GFR (Non-Af Amer) 114.2 BUN/Creatinine Ratio 13.5 Glucose 132 H Lactate Calcium 8.6 Total Bilirubin 0.8 AST 17 ALT 9 Alkaline Phosphatase 141 H Troponin I High Sens 3.3 Total Protein 6.0 Albumin 3.2 L Globulin 2.8 Albumin/Globulin Ratio 1.1 Procalcitonin 0.15 Adenovirus (PCR) Not Detected B. pertussis DNA (PCR) Not Detected B.parapertussis DNA PCR Not Detected C. pneumoniae DNA (PCR) Not Detected Coronavirus OC43 (PCR) Not Detected Coronavirus HKU1 (PCR) Not Detected Coronavirus 229E (PCR) Not Detected SARS-CoV-2 (PCR) Not Detected Coronavirus NL63 (PCR) Not Detected Human Metapneumovir PCR Not Detected Influenza Type A (PCR) Not Detected Influenza Type B (PCR) Not Detected M. pneumoniae (PCR) Not Detected Parainfluenza 1 (PCR) Not Detected Parainfluenza 2 (PCR) Not Detected Parainfluenza 3 (PCR) Not Detected Parainfluenza 4 (PCR) Not Detected RSV (PCR) DETECTED A* Entero/Rhino (PCR) Not Detected 08/18/23 08/19/23 18:02 06:26 WBC 11.23 H RBC 3.68 L Hgb 10.7 L Hct 32.5 L MCV 88.3 MCH 29.1 MCHC 32.9 RDW Std Deviation 49.1 H RDW Coeff of Karen 15.0 H Plt Count 108 L MPV 12.0 Immature Gran % (Auto) 1.5 Neut % (Auto) 85.8 Lymph % (Auto) 7.1 Cottle % (Auto) 4.9 Eos % (Auto) 0.4 Baso % (Auto) 0.3 Neut # (Auto) 9.64 H Lymph # (Auto) 0.80 L Cottle # (Auto) 0.55 Eos # (Auto) 0.04 Baso # (Auto) 0.03 Immature Gran # (Auto) 0.17 Sodium Potassium Chloride Carbon Dioxide Anion Gap BUN Creatinine 0.59 L Est Cr Clr Drug Dosing 134.8 Est GFR ( Amer) 149.7 Est GFR (Non-Af Amer) 129.2 BUN/Creatinine Ratio Glucose Lactate 2.0 Calcium Total Bilirubin AST ALT Alkaline Phosphatase Troponin I High Sens Total Protein Albumin Globulin Albumin/Globulin Ratio Procalcitonin Adenovirus (PCR) B. pertussis DNA (PCR) B.parapertussis DNA PCR C. pneumoniae DNA (PCR) Coronavirus OC43 (PCR) Coronavirus HKU1 (PCR) Coronavirus 229E (PCR) SARS-CoV-2 (PCR) Coronavirus NL63 (PCR) Human Metapneumovir PCR Influenza Type A (PCR) Influenza Type B (PCR) M. pneumoniae (PCR) Parainfluenza 1 (PCR) Parainfluenza 2 (PCR) Parainfluenza 3 (PCR) Parainfluenza 4 (PCR) RSV (PCR) Entero/Rhino (PCR)
--- NOTE | 2023-08-19 11:21 | Pharmacy Report ---
Pharmacy PK ABX Note - Date of Service August 19, 2023 - Assessment and Plan Assessment 22 year old F receiving gentamicin and clindamycin for treatment of fever. Pertinent microbiologic data includes:urine with GNR, respiratory BioFire with RSV SCr at/near baseline Gentamicin * Maintenance dose: 5 mg/kg actual body weight IV every 24 hours for dosing * Level not needed unless continued beyond 72 hours - will order trough for before 3rd dose * Target trough < 1 mcg/mL Plan * Gentamicin 330 mg IV q24h * Trough 08/20 @ 1830 Pharmacy will continue to follow and will adjust dose/frequency as necessary. Thank you. Pharmacy has transitioned to AUC monitoring for vancomycin. AUC/ELIO is the preferred PK/PD target and is associated with decreased risk of nephrotoxicity compared to traditional trough targets.
[2023-08-19] MEDS: ACETAMINOPHEN 325 MG TAB PO PRN (12:10)
--- NOTE | 2023-08-19 14:19 | Electrocardiogram Report ---
Test Reason : Blood Pressure : / mmHG Vent. Rate : 089 BPM Atrial Rate : 089 BPM P-R Int : 148 ms QRS Dur : 086 ms QT Int : 304 ms P-R-T Axes : 052 081 -85 degrees QTc Int : 369 ms Normal sinus rhythm Incomplete right bundle branch block Diffuse Minor Nonspecific T wave abnormality Abnormal ECG When compared with ECG of 26-MAR-2023 02:31, No significant change Confirmed by Richard Michelle ([id number]) on 08/19/2023 2:18:56 PM Referred By: Nancy Flores Confirmed By:Richard Michelle
[2023-08-19] MEDS: GENTAMICIN SULFATE IV SCH (18:27)
[2023-08-19] MEDS: DEXTROSE 5% IV SCH (18:27)
[2023-08-19] MEDS ORDERED: bisacodyL 5 MG TABEC PO SCH (20:00)
[2023-08-19] MEDS: CLINDAMYCIN HCL 150 MG CAP PO SCH (23:53)
[2023-08-20] MEDS ORDERED: bisacodyL 10 MG SUPP PR PRN
[2023-08-20] MEDS: ACETAMINOPHEN 325 MG TAB PO PRN (01:05)
[2023-08-20] MEDS: CLINDAMYCIN HCL 150 MG CAP PO SCH ×3 (06:11→17:54)
[2023-08-20 06:52] LABS: Hematocrit (blood only) 35.3 % (37.0-47.0); Hemoglobin 11.8 g/dl (12.0-16.0)
[2023-08-20 07:13] LABS: Creatinine Clr Calc Pharmacy 128.2 ml/min; Est GFR (African American) 147.3 ml/min; Est GFR (Non-African American) 127.1 ml/min
[2023-08-20] MEDS: DOCUSATE SODIUM 100 MG CAP PO SCH (08:14)
[2023-08-20] MEDS: PRENATAL VITAMIN 1 TAB PO SCH (08:14)
--- NOTE | 2023-08-20 12:22 | Obstetrical Progress Note ---
Date of Service August 20, 2023 Assessment & Plan (1) fever, current hospitalization: POD #2 s/p RSV Fever at midnight 08/19/22 +E.coli in urine Pt is on Clinda and Gent Rx Macrobid started will disch when 24hrs afebrile Results & Data Vital Signs (Past 12 Hours) Vital Signs Temp Pulse Pulse Resp BP BP Pulse Ox 08/20/23 12:06 36.8 C 90 16 105/70 100 08/20/23 07:50 08/20/23 07:50 36.3 C L 72 16 97/61 L 08/20/23 06:10 71 91/51 L 08/20/23 04:15 82 95/63 L 08/20/23 03:35 88 95/63 L 08/20/23 03:30 36.5 C 72 18 89/53 L 96 08/20/23 02:10 37.1 C 08/20/23 01:02 38.2 C H O2 Del Method 08/20/23 12:06 Room Air 08/20/23 07:50 Room Air 08/20/23 07:50 Room Air 08/20/23 06:10 08/20/23 04:15 08/20/23 03:35 08/20/23 03:30 Room Air 08/20/23 02:10 08/20/23 01:02
[2023-08-20] MEDS: NITROFURANTOIN MONOHYDRATE 100 MG CAP PO SCH ×2 (12:46→19:05)
[2023-08-20] MEDS ORDERED: GENTAMICIN TROUGH ONE (18:30)
== END 2023-08-20 19:50 | disposition home health service (06) | DRG 807 ==
LOC: OPB 01:17 → 4S1 01:22 → UNDODISIN 09:00 → 4E2 14:35